=== PATIENT | male | born 1955 | race Caucasian/White ===

== ENCOUNTER 2020-03-06 17:26 | Emergency (ER) | payer MEDICARE, BC, SELFPAY ==
--- NOTE | 2020-03-06 17:45 | XR_ITS ---
WS: [id number] LEFT SHOULDER: 3 VIEW(S) TECHNIQUE: Internal and external rotation with Y view. HISTORY: injury COMPARISON: None available. No fracture or dislocation or soft tissue abnormality. Slight buckling along the inferior surface of the glenoid. I believe was present on prior studies. Mild subchondral cystic changes over the humeral head. Mild AC joint narrowing. XR/XR shoulder LT min 2V* [id number] IMPRESSION: No LEFT shoulder fracture identified.
[2020-03-06 18:00] VITALS: BP 144/93; PULSE 67; RESP 15; TEMP 36.6; O2SAT 95; BMI 35.2
--- NOTE | 2020-03-06 18:32 | CTR_ITS ---
PROCEDURE INFORMATION: Exam: CT Cervical Spine Without Contrast Exam date and time: 03/06/2020 7:16 PM Age: 64 years old Clinical indication: Injury or trauma; Initial encounter; Blunt trauma; Patient HX: Fall from standing into doorframe - lac to L scalp - L shoulder pain; Additional info: Fall, injury TECHNIQUE: Imaging protocol: Computed tomography images of the cervical spine without contrast. Radiation optimization: All CT scans at this facility use at least one of these dose optimization techniques: automated exposure control; mA and/or kV adjustment per patient size (includes targeted exams where dose is matched to clinical indication); or iterative reconstruction. COMPARISON: No relevant prior studies available. RADIATION DOSE METRICS: Total DLP (mGy-cm): 699.25 FINDINGS: Vertebrae: The vertebral body alignment and stature is normal. The facets are intact with mild degenerative changes. C2-C3: No significant disc protrusion. No severe spinal canal stenosis. No significant neural foraminal narrowing. C3-C4: No significant disc protrusion. No severe spinal canal stenosis. No significant neural foraminal narrowing. C4-C5: No significant disc protrusion. No severe spinal canal stenosis. No significant neural foraminal narrowing. C5-C6: At C5-C6 there is a disc bulge. Mild central canal stenosis and mild left bony foraminal stenosis. C6-C7: At C6-C7 there is a disc bulge. Mild central canal stenosis and mild left foraminal stenosis. C7-T1: No significant disc protrusion. No severe spinal canal stenosis. No significant neural foraminal narrowing. 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 Lungs: Lung apices are normal. CT/CT cervical spin wo con* [id number] IMPRESSION: 1. No fracture or acute finding. 2. Disc bulges at C5-C6 and C6-C7 with mild central canal stenosis. Radiation Dose CTDIVOL = (mGy): DLP = 699.25 (mGy-cm)
--- NOTE | 2020-03-06 18:32 | CTR_ITS ---
PROCEDURE INFORMATION: Exam: CT Head Without Contrast Exam date and time: 03/06/2020 7:16 PM Age: 64 years old Clinical indication: Injury or trauma; Initial encounter; Laceration; Without loss of consciousness; Without residual foreign body; Patient HX: Fall from standing into doorframe - lac to L scalp - L shoulder pain TECHNIQUE: Imaging protocol: Computed tomography of the head without contrast. Radiation optimization: All CT scans at this facility use at least one of these dose optimization techniques: automated exposure control; mA and/or kV adjustment per patient size (includes targeted exams where dose is matched to clinical indication); or iterative reconstruction. COMPARISON: No relevant prior studies available. RADIATION DOSE METRICS: Total DLP (mGy-cm): 947.92 FINDINGS: Brain: The sulci are normal. Mild hypodensities in supratentorial periventricular white matter. No intracranial hemorrhage. Ventricles: Normal. No ventriculomegaly. Bones/joints: Unremarkable. No acute fracture. Sinuses: Visualized sinuses are unremarkable. No fluid levels. Mastoid air cells: Visualized mastoid air cells are well aerated. Orbits: Prior cataract surgery. Soft tissues: Superior left frontoparietal scalp contusion. CT/CT head wo con* [id number] IMPRESSION: 1. No fracture or intracranial hemorrhage. 2. Left frontoparietal scalp contusion. 3. Mild microangiopathy. Radiation Dose CTDIVOL = (mGy): DLP = 947.92 (mGy-cm)
--- NOTE | 2020-03-06 20:20 | W.ED.FALL ---
HPI - Fall General: Chief Complaint: Fall Stated Complaint: Fall-L shoulder injury/hit head Time Seen by Provider: 03/06/20 19:50 Source: patient and family Mode of arrival: ambulatory Limitations: no limitations History of Present Illness: HPI Narrative: Mr. Cheney is a nice 64-year-old male who comes in complaining of head, neck and shoulder pain after a fall at home. Patient slipped and fell hitting his head on the ground. He was dazed but does not believe he had a loss of consciousness. He also has pain in his left shoulder and trapezius area. Patient states he cannot raise his arm without a great deal of pain. He denies any shooting pain down his arm and has no left upper extremity numbness or weakness. Patient denies other injuries or pains from the fall. He is not tried anything at home for this. He denies any other complaints or concerns. Associated symptoms-after fall: Denies abdominal pain, chest pain, confusion, difficulty walking, headache(s), hematuria, lightheadedness, neck pain or vertigo Review of Systems Const: Denies: fever(s), chills, body aches, fatigue, malaise or diaphoresis Eyes: Denies: change in vision, blurry vision, photophobia, eye discomfort, eye discharge or eye redness ENMT: Denies: throat pain, odynophagia, hoarseness, swelling of lips/tongue, ear or mastoid pain, ear discharge, change in hearing or nasal discharge Card: Denies: chest pain, palpitations, irregular heart rhythm, edema, lightheadedness, syncope, pre-syncope, dyspnea on exertion or orthopnea Resp: Denies: dyspnea, productive cough, non-productive cough, wheezing, hemoptysis or chest congestion GI: Denies: abdominal pain, nausea, vomiting, hematemesis, coffee ground emesis, heartburn, diarrhea, constipation, GI cramping, hematochezia or melena : Denies: flank pain, dysuria, urinary frequency, urinary urgency or hematuria Musc: Denies: neck pain, back pain, extremity pain, extremity swelling, joint swelling, joint redness, joint warmth or joint stiffness Skin/Breast: Denies: rash, pruritus, erythema or skin tenderness Neuro: Denies: headache(s), numbness in extremities, weakness in extremities, sensory changes, lack of coordination, difficulty walking, dizziness, vertigo, confusion, Slurred speech present or seizure-like activity Aaron/Lymph: Denies: easy bruising, easy bleeding, petechiae, purpura or enlarged lymph nodes All/Imm: Denies: urticaria, throat swelling, tongue swelling, facial swelling or acute wheezing PFSH ED PFSH: Medical History Anxiety DM type 2 (diabetes mellitus, type 2) Social History Smoking and tobacco status: former smoker Alcohol intake: never Substance/Drug Use: never Physical Exam Const: COMMON NORMALS: no acute distress, patient oriented x3, no limitations, healthy appearing and well nourished GENERAL APPEARANCE: cooperative, well kempt and well developed HENMT: COMMON NORMALS: normocephalic, external ears normal, EAC's normal and Normal external nose present HEAD & SCALP: normal to inspection, normocephalic and other (Linear contusion noted to left forehead. No active bleeding or laceration.) FACE & SINUS: normal facial exam and face symmetric NOSE: Normal external nose present and Normal nares present EXTERNAL EAR: Yes external ears normal EXTERNAL AUDITORY CANAL: EAC's normal MOUTH: Normal oral and palatal mucosa present, lip normal and tongue normal Eye: COMMON NORMALS: Equal, round and reactive pupils present and conjunctivae normal GENERAL EYE: appearance normal, both eyes and all related structures ALIGNMENT: Yes alignment normal PERIORBITAL: periorbital findings normal EYELID: eyelids normal CONJUNCTIVA: Yes conjunctivae normal SCLERA: sclerae normal PUPIL: Yes Equal, round and reactive pupils present Neck/C-Spine: COMMON NORMALS: full ROM, no lymphadenopathy, supple, no meningeal signs and no JVD GENERAL: Yes normal visual inspection and Yes trachea midline Chest: COMMONS NORMALS: normal inspection of the chest and normal palpation of entire chest wall Resp: COMMON NORMALS: normal respiratory effort, No retractions, No use of accessory muscles and clear to auscultation bilaterally EFFORT & INSPECTION: Yes able to speak in complete sentences and Yes symmetric chest movement AUSCULTATION: clear to auscultation bilaterally, no crackles, no rales, no rhonchi and no wheezes Cardio: COMMON NORMALS: no JVD, regular rate, regular rhythm, S1 normal heart sound present and S2 normal heart sound present RATE: regular rate RHYTHM: regular rhythm HEART SOUNDS: S1 normal heart sound present, S2 normal heart sound present, no click, no gallops, no murmurs, no rubs and abnormal split S2 GI: COMMON NORMALS: Soft to palpation and No hepatosplenomegaly present PALPATION: Yes Soft to palpation, No Tenderness to palpation present (GI), No Guarding due to palpation present (GI), No Rigid due to palpation, Yes No hepatosplenomegaly present, No Hernia present, No Palpable mass present and No Pulsatile mass present : COMMON NORMALS: Yes no CVA tenderness BLADDER/KIDNEY EXAM: Yes no CVA tenderness Back/Pelvis: COMMON NORMALS: no CVA tenderness, thoracic and lumbar spine normal to inspection, no thoracic nor lumbar tenderness and thoraco-lumbar ROM normal Extremity: COMMON NORMALS: capillary refill normal, no joint enlargement, no clubbing, cyanosis or edema and no calf tenderness NARRATIVE EXTREMITY EXAM: Left shoulder with tenderness to palpation. No gross deformity noted. Neurovascular intact distal. Range of motion limited secondary to pain. Neuro: COMMON NORMALS: patient oriented x3, CN's II-XII intact bilaterally, moves all extremities, no focal motor deficits and no sensory deficits noted MENINGEAL SIGNS: Yes no meningeal signs SPEECH: speech normal Psych: COMMON NORMALS: mental status grossly normal, Normal thought process present, cooperative, normal affect, speech normal and activity/motor behavior normal APPEARANCE: Yes well kempt SPEECH: Yes normal speech THOUGHT PROCESS: Normal thought process present Skin: COMMON NORMALS: no rashes or lesions noted, turgor normal, no jaundice, no petechiae and no mottling GENERAL SKIN EXAM: no rashes or lesions noted and turgor normal Course Vital Signs: Vital signs: Vital Signs Temperature 97.9 F 03/06/20 18:00 Pulse Rate 67 03/06/20 18:00 Respiratory Rate 15 03/06/20 18:00 Blood Pressure 144/93 03/06/20 18:00 Pulse Oximetry 95 03/06/20 18:00 MDM - Fall MDM Narrative: Medical decision making narrative: Mr. Cheney is a nice 64-year-old male comes in complaining of pain in his head neck but primarily left shoulder after falling at home. X-rays are unremarkable. CT scan is unremarkable. Patient has limited range of motion secondary to pain from his left shoulder. Think is very likely he has a rotator cuff injury. He will follow-up with his doctor or orthopedic surgeon. He will go home with a sling. Given medications for pain. He agrees to return should his symptoms change or worsen. Imaging Data^: Left Shoulder: Attestation: I personally reviewed and interpreted this imaging study as follows: My impression: No acute fractures or dislocations CT Head: Radiologist's impression: [address] [address] [address] Scan Report Signed Patient: Juan Pablo Cheney Unit #: [id number] : 1955 Age/Sex: 64 / M ADM Date: 03/06/20 Loc: ER Room/Bed: Attending Dr: Ordering Provider/Ordering MD: Brian Mcadams NP Date of Service: 03/06/20 Procedure(s): CT head wo con* [id number] Accession Number(s): [id number] Report Number: [id number] PROCEDURE INFORMATION: Exam: CT Head Without Contrast Exam date and time: 03/06/2020 7:16 PM Age: 64 years old Clinical indication: Injury or trauma; Initial encounter; Laceration; Without loss of consciousness; Without residual foreign body; Patient HX: Fall from standing into doorframe - lac to L scalp - L shoulder pain TECHNIQUE: Imaging protocol: Computed tomography of the head without contrast. Radiation optimization: All CT scans at this facility use at least one of these dose optimization techniques: automated exposure control; mA and/or kV adjustment per patient size (includes targeted exams where dose is matched to clinical indication); or iterative reconstruction. COMPARISON: No relevant prior studies available. RADIATION DOSE METRICS: Total DLP (mGy-cm): 947.92 FINDINGS: Brain: The sulci are normal. Mild hypodensities in supratentorial periventricular white matter. No intracranial hemorrhage. Ventricles: Normal. No ventriculomegaly. Bones/joints: Unremarkable. No acute fracture. Sinuses: Visualized sinuses are unremarkable. No fluid levels. Mastoid air cells: Visualized mastoid air cells are well aerated. Orbits: Prior cataract surgery. Soft tissues: Superior left frontoparietal scalp contusion. CT/CT head wo con* [id number] IMPRESSION: 1. No fracture or intracranial hemorrhage. 2. Left frontoparietal scalp contusion. 3. Mild microangiopathy. Radiation Dose CTDIVOL = (mGy): DLP = 947.92 (mGy-cm) Dictated By: Butch Holloway Signed By: Butch Holloway Signed Date/Time: 03/06/202001 DD/ 00 CT Cervical Spine: Radiologist's impression: [address] [place] [address] CT Scan Report Signed Patient: Juan Pablo Cheney Unit #: [id number] : 1955 Age/Sex: 64 / M ADM Date: 03/06/20 Loc: ER Room/Bed: Attending Dr: Ordering Provider/Ordering MD: Brian Mcadams NP Date of Service: 03/06/20 Procedure(s): CT cervical spin wo con* [id number] Accession Number(s): [id number] Report Number: [id number] PROCEDURE INFORMATION: Exam: CT Cervical Spine Without Contrast Exam date and time: 03/06/2020 7:16 PM Age: 64 years old Clinical indication: Injury or trauma; Initial encounter; Blunt trauma; Patient HX: Fall from standing into doorframe - lac to L scalp - L shoulder pain; Additional info: Fall, injury TECHNIQUE: Imaging protocol: Computed tomography images of the cervical spine without contrast. Radiation optimization: All CT scans at this facility use at least one of these dose optimization techniques: automated exposure control; mA and/or kV adjustment per patient size (includes targeted exams where dose is matched to clinical indication); or iterative reconstruction. COMPARISON: No relevant prior studies available. RADIATION DOSE METRICS: Total DLP (mGy-cm): 699.25 FINDINGS: Vertebrae: The vertebral body alignment and stature is normal. The facets are intact with mild degenerative changes. C2-C3: No significant disc protrusion. No severe spinal canal stenosis. No significant neural foraminal narrowing. C3-C4: No significant disc protrusion. No severe spinal canal stenosis. No significant neural foraminal narrowing. C4-C5: No significant disc protrusion. No severe spinal canal stenosis. No significant neural foraminal narrowing. C5-C6: At C5-C6 there is a disc bulge. Mild central canal stenosis and mild left bony foraminal stenosis. C6-C7: At C6-C7 there is a disc bulge. Mild central canal stenosis and mild left foraminal stenosis. C7-T1: No significant disc protrusion. No severe spinal canal stenosis. No significant neural foraminal narrowing. 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 Lungs: Lung apices are normal. CT/CT cervical spin wo con* [id number] IMPRESSION: 1. No fracture or acute finding. 2. Disc bulges at C5-C6 and C6-C7 with mild central canal stenosis. Radiation Dose CTDIVOL = (mGy): DLP = 699.25 (mGy-cm) Dictated By: Butch Holloway Signed By: Butch Holloway Signed Date/Time: 03/06/202008 DD/ 07 Discharge Plan Discharge Patient Disposition: Home Clinical Impression: Left shoulder strain Qualifiers: Encounter type: initial encounter Qualified Code(s): S46.912A - Strain of unspecified muscle, fascia and tendon at shoulder and upper arm level, left arm, initial encounter Concussion without loss of consciousness Qualifiers: Encounter type: initial encounter Qualified Code(s): S06.0X0A - Concussion without loss of consciousness, initial encounter Condition: Stable Prescriptions: [place] 5-325 mg tablet 1 tab PO Q6H PRN (Reason: pain) 5 Days Qty: 12 RF: 0 Zofran 4 mg tablet 4 mg PO Q6H PRN (Reason: nausea and vomiting) Qty: 20 RF: 0 No Action alprazolam [Xanax] 0.5 mg tablet 1 mg PO BID RF: 0 bupropion HCl [Wellbutrin XL] 150 mg tablet extended release 24 hr 150 mg PO BID RF: 0 trazodone 50 mg tablet 100 mg PO ONCE RF: 0 methocarbamol 750 mg tablet 750 mg PO BID RF: 0 ibuprofen 800 mg tablet 800 mg PO BID RF: 0 glipizide 10 mg tablet 10 mg PO BID RF: 0 Discharge Orders: Discharge Order (Routine); Ordered 03/06/20 Ordered By: Phuong Basurto Referrals: David Coleman MD [Physician] - 1-3 days Wilton Jarvis Jr, MD [Primary Care Provider] - 1-3 days Discharge Diet: Usual diet Discharge Activity: Increase activity as tolerated Patient Instructions: Rotator Cuff Injury (ED), Concussion (ED) Activity Restrictions/Additional Instructions: Please return to the ER immediately for any of the signs or symptoms listed on your discharge instruction sheets, worsening/changing of your symptoms, you are not getting better as quickly as expected, or for ANY other cause or concerns. Use your sling as needed but be certain to follow-up with Dr. Coleman or the orthopedic doctor of your choice for recheck. Follow your concussion instruction guide and be certain to follow-up with your doctor for reevaluation for your concussion. Return to the ER for increased pain, numbness, weakness, or for any other cause for concern. Coding Level of Care Code ED Medical Accountant for Mildred Miles
[2020-03-06] MEDS: ondansetron 4 MG Tablet PO (20:39)
[2020-03-06] MEDS: HYDROcodone-acetaminophen 5-325 mg Tablet 1 TAB PO (20:39)
[2020-03-06 20:41] VITALS: PULSE 74; RESP 16; O2SAT 96
--- NOTE | 2020-03-10 15:24 | DCPLANNER ---
advertising manager had message to schedule a follow up appointment for patient with ortho. advertising manager called the ortho clinic, spoke with Maura, gave clinic patients information. advertising manager was told that patients information would be printed and reviewed. Clinic will call patient with appointment information.
--- NOTE | 2020-03-17 09:57 | DCPLANNER ---
it disaster recovery manager called patient to confirm if appointment had been scheduled for patient. it disaster recovery manager spoke with Pat, was told that patient followed up with primary care physician.
== END 2020-03-06 20:51 | disposition home or self-care (01) ==
PROVIDERS: Emergency Provider Emergency Medicine; PCP Family Medicine
DX: S46.912A Strain of unspecified muscle, fascia and tendon at shoulder and upper arm level, left arm, initial encounter (principal); S06.0X0A Concussion without loss of consciousness, initial encounter; W01.0XXA Fall on same level from slipping, tripping and stumbling without subsequent striking against object, initial encounter; E11.9 Type 2 diabetes mellitus without complications; Z87.891 Personal history of nicotine dependence
CPT/HCPCS: 12345; 70450; 72125; 73030; 99281; 99283; Q0162

== ENCOUNTER 2020-04-22 10:40 | Outpatient (CLI) | payer MEDICARE, BC, SELFPAY ==
--- NOTE | 2020-04-22 10:46 | MR_ITS ---
WS: [id number] MRI LEFT SHOULDER HISTORY: SHOULDER PAIN COMPARISON: 03/06/2020 TECHNIQUE: Multiplanar sequences of the shoulder joint are submitted. Severe degenerative changes at the AC joint. Loss of the normal cortex of the distal clavicle and acr omion. Osteophytic ridging and soft tissue with encroachment upon the supraspinatus muscle and tendon . Additional 3 mm osteophyte from the distal undersurface of the acromion. Humeral head is high ridin g nearly abutting the undersurface of the acromion. Acromiohumeral distance is 2.6 mm. No os acromion . Biceps tendon remains normally positioned at the bicipital groove. There is increase fluid in the b iceps tendon sheath. Loss of cartilage involving a large portion of the humeral head with cortical irregularity and subcho ndral cystic changes and osteophytes. Humeral head is elevated superiorly from the glenoid. There is complete loss of cartilage over the glenoid abnormal signal in the anterior superior labrum consisten t with complex tear. Complete tear with retraction involving the supraspinatus tendon. Tendon is retracted to the medial h umeral head. There is increase fluid extending along the residual tendon by 2 cm. Moderate atrophy of the supraspinatus muscle. Subscapularis recess fluid. Marked tendinopathy and abnormal signal in the distal subscapularis tendon. Suspicious for high-grade tear distally. No atrophy of the subscapulari s muscle. Infraspinatus tendon is also torn and retracted to the medial humeral head. Distal 3 cm of the visualized tendon is frayed. Very mild atrophy of the infraspinatus muscle. Teres minor tendon is negative. There is a small joint effusion surrounding the humeral head. There are small loose bodies within the fluid. MR/MR shoulder LT wo con* [id number] IMPRESSION: 1. Torn retracted supraspinatus and infraspinatus tendons to the medial stephany l head. Residual tendon stumps are frayed and irregular. 2. High-grade tear distal subscapularis tendon with tendinopathy. 3. Moderate atrophy supraspinatus muscle and mild atrophy infraspinatus muscle . 4. Severe AC joint hypertrophy. 5. High riding humeral head with advanced degenerative changes around the jesse ral head and loss of cartilage. 6. Mild biceps tenosynovitis. 7. Anterior superior labral tear. 8. Small joint effusion with tiny loose bodies.
== END 2020-04-22 10:41 | disposition home or self-care (01) ==
LOC: RADSHAW 10:45
PROVIDERS: PCP Family Medicine; Visit Provider Family Medicine
DX: M25.412 Effusion, left shoulder (principal); S43.432A Superior glenoid labrum lesion of left shoulder, initial encounter; M65.88 Other synovitis and tenosynovitis, other site; M75.102 Unspecified rotator cuff tear or rupture of left shoulder, not specified as traumatic; X58.XXXA Exposure to other specified factors, initial encounter
CPT/HCPCS: 73221

== ENCOUNTER 2022-02-26 00:03 | Emergency (ER) | payer MEDICARE, SELFPAY ==
[2022-02-26 00:07] VITALS: BP 177/86; PULSE 61; RESP 20; TEMP 36.3; O2SAT 95; BMI 34.7
--- NOTE | 2022-02-26 01:14 | CTR_ITS ---
PROCEDURE INFORMATION: Exam: CT Head Without Contrast Exam date and time: 02/26/2022 1:35 AM Age: 66 years old Clinical indication: Pain; Vascular; Patient HX: C/O severe diffuse headache with hypertension. History of prostate cancer with lymphatic mets. ; Additional info: Severe headaches TECHNIQUE: Imaging protocol: Computed tomography of the head without contrast. Radiation optimization: All CT scans at this facility use at least one of these dose optimization techniques: automated exposure control; mA and/or kV adjustment per patient size (includes targeted exams where dose is matched to clinical indication); or iterative reconstruction. COMPARISON: CT head wo con* [id number] 03/06/2020 7:17 PM RADIATION DOSE METRICS: Total DLP (mGy-cm): 1131.68 FINDINGS: Brain: Normal. No hemorrhage. Unremarkable white matter. No mass effect. Cerebral ventricles: No ventriculomegaly. Paranasal sinuses: Visualized sinuses are unremarkable. No fluid levels. Mastoid air cells: Visualized mastoid air cells are well aerated. Bones/joints: Unremarkable. No acute fracture. Soft tissues: Unremarkable. CT/CT head wo con* [id number] IMPRESSION: No acute intracranial abnormality. Stable head CT compared with 03/06/2020.
--- NOTE | 2022-02-26 01:15 | ED_ITS ---
HPI - Headache General: Chief Complaint: Headache Stated Complaint: Headache Time Seen by Provider: 02/26/22 00:59 History of Present Illness: Patient is a 66-year-old male comes to the ED with a headache. Patient has a past medical history of prostate cancer and just started taking Zytiga for the last 2 weeks. 1 side effect of the Zytiga his increased blood pressure and he has had elevated blood pressures here for the past 2 weeks and has PCP put him on lisinopril 2 days ago. For the past 3 days he has had constant headache that starts in his neck and then radiates up throug hout his head. He rates it currently an 8 out of 10. He states that he never has headaches of this is unusual for him. He has had some elevated blood pressures at home and says tonight he had a systolic blood pressure reading over 190. Denies any other symptoms with the headache. Denies any neuro symptoms such as vision changes, numbness tingling or weakness to face or extremities. Denies any fevers, chest pain, shortness of breath, photophobia, nausea/vomiting. Associated symptoms: Deny chest pain, fever(s), nausea, rash or vomiting Review of Systems Const: Denies: fever(s), chills or fatigue Eyes: Denies: change in vision or eye discomfort ENMT: Denies: throat pain, odynophagia, nasal discharge or nasal congestion Card: Denies: chest pain, palpitations, edema, swelling of feet/ankles, dyspnea on exertion or orthopnea Resp: Denies: dyspnea, productive cough or non-productive cough GI: Denies: abdominal pain, nausea, vomiting, diarrhea, constipation or hematochezia : Denies: flank pain, difficulty urinating, dysuria or hematuria Musc: Denies: neck pain, back pain or extremity swelling Skin/Breast: Denies: rash or new lesions Neuro: Reports: headache(s); Denies: numbness in extremities or weakness in extremities PFS ED PFSH: Medical History Anxiety DM type 2 (diabetes mellitus, type 2) Social History Alcohol intake: never Physical Exam Const: COMMON NORMALS: no acute distress, patient oriented x3 and alert HENMT: COMMON NORMALS: normocephalic HEAD & SCALP: normocephalic MOUTH: Normal oral and palatal mucosa present THROAT: posterior oropharynx normal and uvula midline Eye: COMMON NORMALS: Equal, round and reactive pupils present and EOMs intact bilaterally GENERAL EYE: appearance normal, both eyes and all related structures PUPIL: Yes Equal, round and reactive pupils present Neck/C-Spine: COMMON NORMALS: supple GENERAL: Yes normal visual inspection Lymph: LYMPHATIC: no lymphadenopathy noted Resp: COMMON NORMALS: normal respiratory effort, No retractions, No use of a ccessory muscles and clear to auscultation bilaterally AUSCULTATION: clear to auscultation bilaterally Cardio: COMMON NORMALS: regular rate, regular rhythm, S1 normal heart sound present, S2 normal heart sound present, No gallops present (Cardio), No clicks present (Cardio), No murmurs present (Cardio) and Peripheral pulses 2+ throughout RATE: regular rate RHYTHM: regular rhythm HEART SOUNDS: S1 normal heart sound present and S2 normal heart sound present PERIPHERAL PULSES: Peripheral pulses 2+ throughout GI: COMMON NORMALS: Normal to inspection, nondistended, normoactive bowel sounds present, Soft to palpation, non-tender and no masses PALPATION: Yes Soft to palpation : COMMON NORMALS: Yes no CVA tenderness BLADDER/KIDNEY EXAM: Yes no CVA tenderness Back/Pelvis: COMMON NORMALS: no CVA tenderness Extremity: GENERAL: Yes normal exam except as noted Neuro: COMMON NORMALS: patient oriented x3, CN's II-XII intact bilaterally, moves all extremities, no focal motor deficits and no sensory deficits noted SENSORIUM/ORIENTATION: Yes alert COORDINATION/BALANCE: [id number] test normal SPEECH: speech normal SENSORY EXAM: Yes extremities (intact) MOTOR EXAM: 5/5 motor strength present throughout COORDINATION: fin jeremiah-to-nose test normal Skin: COMMON NORMALS: no rashes or lesions noted GENERAL SKIN EXAM: no rashes or lesions noted and dry skin Course Vital Signs: Vital signs: Vital Signs Temperature 97.4 F L 02/26/22 00:07 Pulse Rate 61 02/26/22 00:07 Respiratory Rate 20 H 02/26/22 00:07 Blood Pressure 177/86 02/26/22 00:07 Pulse Oximetry 95 02/26/22 00:07 Oxygen Delivery Me thod 02/26/22 00:07 MDM - Headache Medical Decision Making Patient is a 66-year-old male comes to the ED with a headache. Patient has a past medical history of prostate cancer and just started taking Zytiga for the last 2 weeks. 1 side effect of the Zytiga his increased blood pressure and he has had elevated blood pressures here for the past 2 weeks and has PCP put him on lisinopril 2 days ago. For the past 3 days he has had constant headache that starts in his neck and then radiates up throughout his head. He rates it currently an 8 out of 10. He states that he never has headaches of this is unusual for him. Vitals are stable here in the ED. Exam shows a patient in no acute distress or pain. Neuro exam shows no deficits. Rest of exam is benign. CBC and BMP were unremarkable. Head CT showed no acute findings. Patient was given IV Toradol and Benadryl and his headache resolved. Patient was diagnosed with headache and was discharged home. He was told to follow-up with his PCP in the next week for reevaluation. Return to ED precautions given. Patient understood and agreed with plan. Lab Data I reviewed the patient's lab results. : 02/26/22 01:30 02/26/22 01:[address] 02/26/22 01:14 IMPRESSION: No acute intracranial abnormality. Stable head CT compared with 03/06/2020. Laboratory Results WBC 6.5 10^3/uL (4.0-10.0) 02/26/22 01:30 RBC 4.60 10^6/uL (4.1-5.3) 02/26/22 01:30 Hgb 13.9 g/dL (11.7-16.6) 02/26/22 01:30 Hct 41.2 % (42.0-52.0) L 02/26/22 01:30 MCV 89.6 fl (80-94) 02/26/22 01:30 MCH 30.2 pg (28.0-34.0) 02/26/22 01:30 MCHC 33.7 g/dL (30.0-36.0) 02/26/22 01:30 RDW 11.9 % (12.1-15.1) L 02/26/22 01:30 Plt Count 121 10^3/cmm (130-400) L 02/26/22 01:30 MPV 10.4 fL (7.4-10.4) 02/26/22 01:30 Neut % (Auto) 57.1 % 02/26/22 01:30 Lymph % (Auto) 32.1 % 02/26/22 01:30 [place] % (Auto) 5.8 % 02/26/22 01:30 Eos % (Auto) 3.4 % 02/26/22 01:30 Baso % (Auto) 1.1 % 02/26/22 01:30 Neut # (Auto) 3.72 10^3/uL (1.8-7.7) 02/26/22 01:30 Lymph # (Auto) 2.1 10^3/uL (0.8-4.8) 02/26/22 01:30 [place] # (Auto) 0.4 10^3/uL (0.2-0.9) 02/26/22 01:30 Eos # (Auto) 0.2 10^3/uL (0.0-0.8) 02/26/22 01:30 Baso # (Auto) 0.1 10^3/uL (0.0-0.1) 02/26/22 01:30 Nucleated RBC % (auto) 0 % 02/26/22 01:30 Nucleated RBCs # 0.0 /100WBC 02/26/22 01:30 Sodium 137 mmol/L (136-145) 02/26/22 01:30 Potassium 3.9 mmol/L (3.5-5.1) 02/26/22 01:30 Chloride 102 mmol/L (98-107) 02/26/22 01:30 Carbon Dioxide 26 mmol/L (22-29) 02/26/22 01:30 Anion Gap 12.9 (5-19) 02/26/22 01:30 BUN 19 mg/dL (8-23) 02/26/22 01:30 Creatinine 0.7 mg/dL (0.7-1.2) 02/26/22 01:30 GFR Calculation 112.5 mL/min (90-130) 02/26/22 01:30 Glucose 237 mg/dL (65-115) H 02/26/22 01:30 Calculated Osmolality 294 mOsm/kg (285-295) 02/26/22 01:30 Calcium 9.2 mg/dL (8.5-10.5) 02/26/22 01:30 Discharge Plan Discharge Patient Disposition: Home Clinical Impression: Headache Qualifiers: Headache type: unspecified Headache chronicity pattern: acute headache Intractability: not intractable Qualified Code(s): R51.9 - Headache, unspecified Condition: Stable Prescriptions: No Action alprazolam [Xanax] 0.5 mg tablet 1 mg PO BID bupropion HCl [Wellbutrin XL] 150 mg tablet extended release 24 hr 150 mg PO BID trazodone 50 mg tablet 100 mg PO ONCE methocarbamol 750 mg tablet 750 mg PO BID ibuprofen 800 mg tablet 800 mg PO BID glipizide 10 mg tablet 10 mg PO BID cephalexin 500 mg capsule 500 mg PO BID 7 Days Qty: 14 0RF silver sulfadiazine 1 % cream 1 applic topical BID 14 Days Qty: 50 1RF Rx Instructions: apply a 1.5 mm thickness Zofran 4 mg tablet 4 mg PO Q6H PRN (Reason: nausea and vomiting) Qty: 20 0RF Discharge Orders: Discharge ED (Routine); Ordered 02/26/22 Ordered By: Dayron Hathaway Referrals: Wilton Jarvis Jr, MD [Primary Care Provider] - Discharge Diet: Regular Discharge Activity: Resume usual activity Patient Instructions: Acute Headache (DC) Activity Restrictions/Additional Instructions: Follow-up with medical provider as directed in the next 5 to 7 days for reevaluation. Continue taking all medications as previously prescribed. Return to the ER or your medical provider if condition worsens. Please read and understand discharge instructions. Thank you for choosing [facility] for your healthcare needs today. Please realize this is an emergency room and that we are providing you with a medical screening exam and this may not be complete and all inclusive of all the testing and or work up that you may need to determine your ailment or severity of your illness. It is very important that you follow up as instructed or that you return to the Emergency Department should you have concerns or if your condition changes or worsens in any way. Coding Level of Care Code ED Power Distributor for Mildred Fwjosé Exam Comprehensive
[2022-02-26 01:46] LABS: Basophils # 0.1 10^3/uL (0.0-0.1); Basophils % 1.1 %; Eosinophils # 0.2 10^3/uL (0.0-0.8); Eosinophils % 3.4 %; Hematocrit 41.2 % (42.0-52.0); Hemoglobin 13.9 g/dL (11.7-16.6); Lymphocytes # 2.1 10^3/uL (0.8-4.8); Lymphocytes % 32.1 %; Mean Corpuscular HGB Conc 33.7 g/dL (30.0-36.0); Mean Corpuscular Hemoglobin 30.2 pg (28.0-34.0); Mean Corpuscular Volume 89.6 fl (80-94); Mean Platelet Volume 10.4 fL (7.4-10.4); Monocytes # 0.4 10^3/uL (0.2-0.9); Monocytes % 5.8 %; Neutrophils # 3.72 10^3/uL (1.8-7.7); Neutrophils % 57.1 %; Nucleated Red Blood Cells % 0 %; Platelet Count 121 10^3/cmm (130-400); Red Cell Distribution Width 11.9 % (12.1-15.1); White Blood Count 6.5 10^3/uL (4.0-10.0)
[2022-02-26 02:06] LABS: Blood Urea Nitrogen 19 mg/dL (8-23); Calcium 9.2 mg/dL (8.5-10.5); Carbon Dioxide 26 mmol/L (22-29); Chloride 102 mmol/L (98-107); Glomerular Filtration Rate 112.5 mL/min (90-130); Glucose 237 mg/dL (65-115); Osmolality Calculated 294 mOsm/kg (285-295); Sodium 137 mmol/L (136-145)
[2022-02-26 02:08] LABS: Anion Gap 12.9 (5-19); Potassium 3.9 mmol/L (3.5-5.1)
[2022-02-26] MEDS: ketorolac 30 mg/mL INJ IVP (02:16)
[2022-02-26] MEDS: diphenhydrAMINE 50 mg/mL SDV 1mL 25 MG IVP (02:16)
== END 2022-02-26 03:00 | disposition home or self-care (01) ==
PROVIDERS: Emergency Provider Physician Assistant; PCP Family Medicine
DX: R51.9 Headache, unspecified (principal); E11.9 Type 2 diabetes mellitus without complications
CPT/HCPCS: 70450; 80048; 85025; 96374; 96375; 99284; J1200; J1885

== ENCOUNTER 2022-05-13 21:31 | Emergency (ER) | payer MEDICARE, SELFPAY ==
[2022-05-13 21:37] VITALS: BP 209/106; PULSE 80; RESP 20; TEMP 36.2; O2SAT 94; BMI 34.2
--- NOTE | 2022-05-13 21:44 | CTR_ITS ---
PROCEDURE INFORMATION: Exam: CT Abdomen And Pelvis Without Contrast Exam date and time: 05/13/2022 10:14 PM Age: 66 years old Clinical indication: Abdominal pain; Flank; Left; Additional info: Flank pain TECHNIQUE: Imaging protocol: Computed tomography of the abdomen and pelvis without contrast. Radiation optimization: All CT scans at this facility use at least one of these dose optimization techniques: automated exposure control; mA and/or kV adjustment per patient size (includes targeted exams where dose is matched to clinical indication); or iterative reconstruction. COMPARISON: US abdomen complete* [id number] 04/16/2019 7:36 AM RADIATION DOSE METRICS: Total DLP (mGy-cm): 1142.14 FINDINGS: Heart: Coronary artery atherosclerotic calcifications. Liver: Normal. No mass. Gallbladder and bile ducts: Normal. No calcified stones. No ductal dilation. Pancreas: Normal. No ductal dilation. Spleen: Spleen enlarged at 13.7 cm. Adrenal glands: Normal. No mass. Kidneys and ureters: Left ureterovesical junction 5.1 mm calculus with mild hydronephrosis and hydroureter along with perinephric edema perhaps reflecting associated pyelonephritis. Right kidney cyst, negative for follow-up advised. Stomach and bowel: Unremarkable. No obstruction. No mucosal thickening. Appendix: No evidence of appendicitis. Intraperitoneal space: Unremarkable. No free air. No significant fluid collection. Vasculature: Unremarkable. No abdominal aortic aneurysm. Lymph nodes: Unremarkable. No enlarged lymph nodes. Urinary bladder: Unremarkable as visualized. Reproductive: Unremarkable as visualized. Bones/joints: Unremarkable. No acute fracture. Soft tissues: Small umbilical hernia containing omentum without bowel. Small left inguinal hernia containing omentum without bowel. CT/CT kidney stone [id number] IMPRESSION: 1. Left ureterovesical junction 5.1 mm calculus with mild hydronephrosis and hydroureter along with perinephric edema perhaps reflecting associated pyelonephritis. 2. Right kidney cyst, negative for follow-up advised. 3. Small umbilical hernia containing omentum without bowel. 4. Small left inguinal hernia containing omentum without bowel. 5. Coronary artery atherosclerotic calcifications. 6. Spleen enlarged at 13.7 cm. COMMENTS: Consistent with the [employer]'s Incidental Findings Committee white paper ([employer] Radiol 2018): Any incidental renal lesion less than 1 cm or classified as too small to characterize, or any incidental cystic renal lesion characterized as simple-appearing, is likely benign. No follow-up imaging is recommended for these lesions per consensus recommendations based on imaging criteria.
--- NOTE | 2022-05-13 21:46 | W.ED.MALEGU ---
HPI - Male Genitourinary General: Chief complaint: Urogenital-Male Stated complaint: Possible Kidney Stone Time Seen by Provider: 05/13/22 21:44 History of Present Illness: 66-year-old male patient comes in today for complaints of flank pain on the left side, difficulty urinating, and testicular pain. Patient reports symptoms started about 1 day ago which he felt was probably due to a kidney stone. This evening patient had an episode of emesis and worsening pain which brought him to the ER. Patient does have a history of diabetes mellitus type 2, prostate cancer stage IV, and hypertension. Associated symptoms: Reports nausea and vomiting Review of Systems Const: Denies: fever(s) GI: Reports: nausea and vomiting : Reports: flank pain, difficulty urinating and testicular pain PFSH ED PFSH: Medical History (Updated 05/13/22 @ 23:49 by LIU Nicole) Anxiety DM type 2 (diabetes mellitus, type 2) Social History Alcohol intake: never Physical Exam Const: COMMON NORMALS: alert HENMT: COMMON NORMALS: normocephalic HEAD & SCALP: normocephalic Neck/C-Spine: COMMON NORMALS: full ROM Resp: COMMON NORMALS: normal respiratory effort and clear to auscultation bilaterally AUSCULTATION: clear to auscultation bilaterally Cardio: COMMON NORMALS: regular rate and regular rhythm RATE: regular rate RHYTHM: regular rhythm GI: COMMON NORMALS: Soft to palpation (Mildly distended) AUSCULTATION: Yes normoactive bowel sounds PALPATION: Yes Soft to palpation (Mildly distended) and Yes Tenderness to palpation present (GI) : BLADDER/KIDNEY EXAM: Yes CVA tenderness on the left Back/Pelvis: GENERAL BACK: Yes CVA tenderness Extremity: COMMON NORMALS: normal to inspection Neuro: SENSORIUM/ORIENTATION: Yes alert Skin: COMMON NORMALS: turgor normal GENERAL SKIN EXAM: turgor normal Course Vital Signs: Vital signs: Vital Signs Temperature 97.2 F L 05/13/22 21:37 Pulse Rate 80 05/13/22 21:37 Respiratory Rate 16 05/13/22 22:05 Blood Pressure 219/104 05/14/22 00:00 Pulse Oximetry 93 05/14/22 00:00 Oxygen Delivery Me thod 05/13/22 21:37 MDM - Male Medical Decision Making 66-year-old male patient comes in today for complaints of left flank pain radiating into the groin. On exam patient does have some CVA tenderness on the left flank area. Abdomen soft with some tenderness in the left upper abdomen. Bowel sounds are present. Differential diagnosis includes not limited to urinary retention, UTI, renal calculi, prostatitis. CBC had a white count of 9.8, sodium was 130, CT of the abdomen pelvis noted a 5.1 mm calculus in the UVJ. Patient's creatinine was 0.9 with bun of 19. Patient good results with pain medication hydromorphone. Recommend patient follow-up with urology for further treatment and evaluation return to ER for worsening pain or high fever. Lab Data : 05/13/22 22:05 05/13/22 22:05 Radiology Impressions Abdomen/Pelvis CT 05/13/22 21:44 IMPRESSION: 1. Left ureterovesical junction 5.1 mm calculus with mild hydronephrosis and hydroureter along with perinephric edema perhaps reflecting associated pyelonephritis. 2. Right kidney cyst, negative for follow-up advised. 3. Small umbilical hernia containing omentum without bowel. 4. Small left inguinal hernia containing omentum without bowel. 5. Coronary artery atherosclerotic calcifications. 6. Spleen enlarged at 13.7 cm. COMMENTS: Consistent with the [employer]'s Incidental Findings Committee white paper ([employer] Radiol 2018): Any incidental renal lesion less than 1 cm or classified as too small to characterize, or any incidental cystic renal lesion characterized as simple-appearing, is likely benign. No follow-up imaging is recommended for these lesions per consensus recommendations based on imaging criteria. Laboratory Results WBC 9.8 10^3/uL (4.0-10.0) 05/13/22 22:05 RBC 4.87 10^6/uL (4.1-5.3) 05/13/22 22:05 Hgb 14.6 g/dL (11.7-16.6) 05/13/22 22:05 Hct 42.8 % (42.0-52.0) 05/13/22 22:05 MCV 87.9 fl (80-94) 05/13/22 22:05 MCH 30.0 pg (28.0-34.0) 05/13/22 22:05 MCHC 34.1 g/dL (30.0-36.0) 05/13/22 22:05 RDW 12.1 % (12.1-15.1) 05/13/22 22:05 Plt Count 148 10^3/cmm (130-400) 05/13/22 22:05 MPV 10.2 fL (7.4-10.4) 05/13/22 22:05 Neut % (Auto) 78.9 % 05/13/22 22:05 Lymph % (Auto) 12.8 % 05/13/22 22:05 [place] % (Auto) 6.7 % 05/13/22 22:05 Eos % (Auto) 0.7 % 05/13/22 22:05 Baso % (Auto) 0.5 % 05/13/22 22:05 Neut # (Auto) 7.74 10^3/uL (1.8-7.7) H 05/13/22 22:05 Lymph # (Auto) 1.3 10^3/uL (0.8-4.8) 05/13/22 22:05 [place] # (Auto) 0.7 10^3/uL (0.2-0.9) 05/13/22 22:05 Eos # (Auto) 0.1 10^3/uL (0.0-0.8) 05/13/22 22:05 Baso # (Auto) 0.1 10^3/uL (0.0-0.1) 05/13/22 22:05 Nucleated RBC % (auto) 0 % 05/13/22 22:05 Nucleated RBCs # 0.0 /100WBC 05/13/22 22:05 Sodium 130 mmol/L (136-145) L 05/13/22 22:05 Potassium 4.4 mmol/L (3.5-5.1) 05/13/22 22:05 Chloride 94 mmol/L (98-107) L 05/13/22 22:05 Carbon Dioxide 25 mmol/L (22-29) 05/13/22 22:05 Anion Gap 15.4 (5-19) 05/13/22 22:05 BUN 19 mg/dL (8-23) 05/13/22 22:05 Creatinine 0.9 mg/dL (0.7-1.2) 05/13/22 22:05 GFR Calculation 84.2 mL/min (90-130) L 05/13/22 22:05 Glucose 189 mg/dL (65-115) H 05/13/22 22:05 Calculated Osmolality 277 mOsm/kg (285-295) L 05/13/22 22:05 Lactic Acid 2.4 mmol/L (0.5-2.2) H 05/13/22 22:05 Calcium 9.8 mg/dL (8.5-10.5) 05/13/22 22:05 Total Bilirubin 0.9 mg/dL (0.15-1.2) 05/13/22 22:05 AST 69 U/L (0-40) H 05/13/22 22:05 ALT 57 U/L (0-41) H 05/13/22 22:05 Alkaline Phosphatase 78 U/L (40-130) 05/13/22 22:05 Total Protein 7.6 g/dL (6.6-8.7) 05/13/22 22:05 Albumin 4.3 g/dL (3.5-5.2) 05/13/22 22:05 Globulin 3.3 g/dL (1.3-4.6) 05/13/22 22:05 Urine Color Yellow (Yellow) 05/13/22 23:39 Urine Appearance Sl hazy (CLEAR) A 05/13/22 23:39 Urine pH 5 (5-7) 05/13/22 23:39 Ur Specific [place] 1.015 (1.005-1.030) 05/13/22 23:39 Urine Protein Trace (Negative) 05/13/22 23:39 Urine Glucose (UA) Norm (Normal) 05/13/22 23:39 Urine Ketones Negative (Negative) 05/13/22 23:39 Urine Blood 3+ (Negative) H 05/13/22 23:39 Urine Nitrate Negative (Negative) 05/13/22 23:39 Urine Bilirubin Neg (Negative) 05/13/22 23:39 Urine Urobilinogen Norm mg/dL (Negative) 05/13/22 23:39 Ur Leukocyte Esterase Negative (Negative) 05/13/22 23:39 Urine RBC 40-50 /hpf (0-2) H 05/13/22 23:39 Urine WBC 0-4 /hpf (0-5) H 05/13/22 23:39 Ur Squamous Epith Cells None /hpf (0-5) 05/13/22 23:39 Amorphous Sediment Not Reportable 05/13/22 23:39 Urine Bacteria None /hpf (NONE) 05/13/22 23:39 Hyaline Casts 0-4 /lpf H 05/13/22 23:39 Discharge Plan Discharge Patient Disposition: Home Clinical Impression: Left ureteral calculus Condition: Stable Prescriptions: New hydrocodone-acetaminophen 7.5-325 mg tablet 1 tab PO Q6H PRN (Reason: pain) Qty: 14 0RF ondansetron 4 mg tablet,disintegrating 4 mg PO Q8H PRN (Reason: nausea and vomiting) Qty: 10 0RF No Action alprazolam [Xanax] 0.5 mg tablet 1 mg PO BID bupropion HCl [Wellbutrin XL] 150 mg tablet extended release 24 hr 150 mg PO BID trazodone 50 mg tablet 100 mg PO ONCE methocarbamol 750 mg tablet 750 mg PO BID ibuprofen 800 mg tablet 800 mg PO BID glipizide 10 mg tablet 10 mg PO BID cephalexin 500 mg capsule 500 mg PO BID 7 Days Qty: 14 0RF silver sulfadiazine 1 % cream 1 applic topical BID 14 Days Qty: 50 1RF Rx Instructions: apply a 1.5 mm thickness Zofran 4 mg tablet 4 mg PO Q6H PRN (Reason: nausea and vomiting) Qty: 20 0RF Discharge Orders: Discharge ED (Routine); Ordered 05/14/22 Ordered By: Brian Mcadams Referrals: Wilton Jarvis Jr, MD [Primary Care Provider] - Discharge Diet: Usual diet Discharge Activity: Increase activity as tolerated Patient Instructions: Kidney Stones (ED), Opioid Safety Activity Restrictions/Additional Instructions: Follow-up with urologist on Sunday for appointment. Continue with routine medications. Use hydrocodone for pain and ondansetron for nausea and vomiting. Return to emergency department for worsening symptoms such as high fever, inability to hold fluids down, or new concerns. Coding Level of Care Code ED Streetcar Repairer for Chg Fwd Exam Comprehensive
[2022-05-13 22:05] VITALS: RESP 16
[2022-05-13] MEDS: ondansetron 2 mg/ML SDV 2 mL 4 MG IVP (22:05)
[2022-05-13] MEDS: HYDROmorphone 1 mg/mL INJ 1 mL IVP (22:05)
[2022-05-13] MEDS: sodium chloride 0.9% 500 ML 999 ML IV (22:05)
[2022-05-13 22:17] LABS: Basophils # 0.1 10^3/uL (0.0-0.1); Basophils % 0.5 %; Eosinophils # 0.1 10^3/uL (0.0-0.8); Eosinophils % 0.7 %; Hematocrit 42.8 % (42.0-52.0); Hemoglobin 14.6 g/dL (11.7-16.6); Lymphocytes # 1.3 10^3/uL (0.8-4.8); Lymphocytes % 12.8 %; Mean Corpuscular HGB Conc 34.1 g/dL (30.0-36.0); Mean Corpuscular Volume 87.9 fl (80-94); Mean Platelet Volume 10.2 fL (7.4-10.4); Monocytes # 0.7 10^3/uL (0.2-0.9); Monocytes % 6.7 %; Neutrophils # 7.74 10^3/uL (1.8-7.7); Neutrophils % 78.9 %; Nucleated Red Blood Cells % 0 %; Platelet Count 148 10^3/cmm (130-400); Red Blood Count 4.87 10^6/uL (4.1-5.3); Red Cell Distribution Width 12.1 % (12.1-15.1); White Blood Count 9.8 10^3/uL (4.0-10.0)
[2022-05-13 22:37] LABS: Lactic Sepsis W/Reflex 2.4 mmol/L (0.5-2.2)
[2022-05-13 22:39] LABS: Alanine Aminotransferase 57 U/L (0-41); Albumin Level 4.3 g/dL (3.5-5.2); Alkaline Phosphatase 78 U/L (40-130); Blood Urea Nitrogen 19 mg/dL (8-23); Calcium 9.8 mg/dL (8.5-10.5); Carbon Dioxide 25 mmol/L (22-29); Chloride 94 mmol/L (98-107); Globulin 3.3 g/dL (1.3-4.6); Glomerular Filtration Rate 84.2 mL/min (90-130); Glucose 189 mg/dL (65-115); Osmolality Calculated 277 mOsm/kg (285-295); Sodium 130 mmol/L (136-145); Total Bilirubin 0.9 mg/dL (0.15-1.2); Total Protein 7.6 g/dL (6.6-8.7)
[2022-05-13 22:46] LABS: Anion Gap 15.4 (5-19); Aspartate Amino Transferase 69 U/L (0-40); Potassium 4.4 mmol/L (3.5-5.1)
[2022-05-13 23:00] VITALS: BP 227/110; O2SAT 92
[2022-05-14] VITALS: BP 219/104; O2SAT 93
[2022-05-14 00:01] LABS: Reflex Lactate Order REFLEX LACTIC ORDERD
[2022-05-14 00:24] LABS: Urine Appearance SL Hazy (CLEAR); Urine Color Yellow (Yellow); pH Urine 5 (5-7)
[2022-05-14 00:25] LABS: Add Urine Microscopic? YES; Bilirubin Urine Neg (Negative); Blood Urine 3+ (Negative); Glucose Urine UA Norm (Normal); Ketones Urine Negative (Negative); Leukocyte Esterase Urine Negative (Negative); Nitrate Urine Negative (Negative); Protein Urine Trace (Negative); Specific Gravity, Urine 1.015 (1.005-1.030); Urobilinogen Urine Norm (Negative)
[2022-05-14 00:27] LABS: RBC Urine 40-50 /hpf (0-2)
[2022-05-14 00:28] LABS: Hyaline Casts Urine 0-4 /lpf; WBC Urine 0-4 /hpf (0-5)
[2022-05-14] MEDS: HYDROcodone-acetaminophen 7.5-325 mg Tablet 2 TAB PO (00:39)
[2022-05-14] MEDS: ondansetron 4 MG Tablet PO (00:39)
[2022-05-14 01:05] LABS: Lactic Acid level (Lactate) 1.8 mmol/L (0.5-2.2)
== END 2022-05-14 00:40 | disposition home or self-care (01) ==
PROVIDERS: Emergency Provider Nurse Practitioner Family; PCP Family Medicine
DX: N13.2 Hydronephrosis with renal and ureteral calculous obstruction (principal)
CPT/HCPCS: 51798; 74176; 80053; 81001; 81003; 83605; 85025; 96361; 96374; 96375; 99285; J1170; J2405; J7040; Q0162

== ENCOUNTER → 2023-01-23 10:09 | Outpatient (BNVA) | payer MEDICARE, SELFPAY | PROVIDERS: PCP Family Medicine; Visit Provider Podiatrist Foot & Ankle Surgery | DX: E11.42 Type 2 diabetes mellitus with diabetic polyneuropathy (principal); L60.3 Nail dystrophy | CPT/HCPCS: 11721 ==

== ENCOUNTER → 2023-09-25 09:12 | Outpatient (BNVA) | payer MEDICARE, SELFPAY | PROVIDERS: PCP Family Medicine; Visit Provider Podiatrist Foot & Ankle Surgery | DX: L60.3 Nail dystrophy (principal); E11.42 Type 2 diabetes mellitus with diabetic polyneuropathy | CPT/HCPCS: 11721 ==

== ENCOUNTER 2024-06-09 20:29 | Emergency (ER) | payer MEDICARE, SELFPAY ==
[2024-06-09] VITALS (19 sets, daily range): BP systolic 88–110; BP diastolic 35–56; PULSE 63–69; RESP 17–35; O2SAT 91–100; BMI 32.5
--- NOTE | 2024-06-09 20:31 | ECG_ITS ---
[facility] Test Date: 2024-06-09 Pat Name: Juan Pablo Cheney Department: Room: Gender: Male Front Office Attendant: : 1955 Requested By: Diamond Terrazas Order Number: [id number] Knight MD: Ernie Mancilla M.D. Measurements Intervals Lane Rate: 70 P: 23 NM: 186 QRS: -10 QRSD: 130 T: 77 QT: 421 QTc: 455 Interpretive Statements SINUS RHYTHM POSSIBLE ANTERIOR MYOCARDIAL INFARCTION , PROBABLY OLD [30 ms Q WAVE IN V3/V4, OR R < 0.2 mV IN V4] No previous ECG available for comparison Electronically Signed On 06-10-2024 21:33:39 ENVIRONMENTAL WEB CRAWLER by Ernie Mancilla M.D. [email or web address]
--- NOTE | 2024-06-09 20:38 | CTR_ITS ---
PROCEDURE INFORMATION: Exam: CT Head Without Contrast Exam date and time: 06/09/2024 8:44 PM Age: 68 years old Clinical indication: Stroke-like symptoms; Other: RT side weakness; Additional info: Fall, head injury TECHNIQUE: Imaging protocol: Computed tomography of the head without contrast. Radiation optimization: All CT scans at this facility use at least one of these dose optimization techniques: automated exposure control; mA and/or kV adjustment per patient size (includes targeted exams where dose is matched to clinical indication); or iterative reconstruction. Other technique: STROKE PROTOCOL was implemented. COMPARISON: CT head wo con* [id number] 02/26/2022 1:35 AM RADIATION DOSE METRICS: Total DLP (mGy-cm): 1197.98 FINDINGS: Brain: There is mild cortical atrophy. Low-density changes in the white matter are consistent with nonspecific small vessel chronic ischemic change. There is no intracranial mass, hemorrhage or edema. Cerebral ventricles: No ventriculomegaly. Paranasal sinuses: Visualized sinuses are unremarkable. No fluid levels. Mastoid air cells: Visualized mastoid air cells are well aerated. Bones: Unremarkable. No acute fracture. Soft tissues: Unremarkable. CT/CT head wo con* [id number] IMPRESSION: No acute intracranial finding. ASSESSMENT: ASPECTS ([facility]a [facility] Stroke Program Early CT Score) is 10.
--- NOTE | 2024-06-09 20:38 | XRR_ITS ---
PROCEDURE INFORMATION: Exam: XR Chest Exam date and time: 06/09/2024 8:46 PM Age: 68 years old Clinical indication: Pain; Chest pressure; Additional info: Weakness TECHNIQUE: Imaging protocol: Radiologic exam of the chest. Views: 1 view. COMPARISON: CT kidney stone [id number] 05/13/2022 10:14 PM FINDINGS: Lungs: Visualized portions of the lungs are clear. There is no pulmonary venous congestion. Pleural spaces: Unremarkable. No pleural effusion. No pneumothorax. Heart/Mediastinum: The heart is mildly enlarged. Bones/joints: Unremarkable. XR/XR chest 1V portable [id number] IMPRESSION: No acute infiltrate.
[2024-06-09 21:14] LABS: Basophils # 0.1 10^3/uL (0.0-0.1); Basophils % 0.9 %; Eosinophils # 0.3 10^3/uL (0.0-0.8); Eosinophils % 5.1 %; Lymphocytes # 1.1 10^3/uL (0.8-4.8); Lymphocytes % 17.2 %; Mean Corpuscular Hemoglobin 27.1 pg (27-33); Mean Corpuscular Volume 90.2 fl (82-101); Mean Platelet Volume 10.9 fL (7.4-10.4); Monocytes # 0.4 10^3/uL (0.2-0.9); Monocytes % 5.6 %; Neutrophils # 4.56 10^3/uL (1.8-7.7); Neutrophils % 70.6 %; Nucleated Red Blood Cells % 0 %; Platelet Count 150 10^3/cmm (157-399); Red Blood Count 2.66 10^6/uL (3.85-5.65); Red Cell Distribution Width 16.9 % (12.1-15.1); White Blood Count 6.46 10^3/uL (3.29-11.43)
--- NOTE | 2024-06-09 21:16 | W.ED.CHESTPA ---
HPI - Chest Pain General: Chief Complaint: ER Hold Stated Complaint: CHEST PAIN Time Seen by Provider: 06/09/24 20:38 History of Present Illness: 68-year-old man with a history of diabetes and anxiety with recent prolonged admission to [facility]. tells me this was for congestive heart failure for which she had a large amount of fluid removed. She says he also had anemia and had to be transfused but was a difficult type and screen so this took over a day. She says he also had renal failure which have been improving some. She also says he had endocarditis and was on IV antibiotics for 40 days. He presents today by ambulance with complaints of right neck and arm pain. He is having difficulty moving his right arm. Seems that this is more from pain but he says it feels weak as well. No other focal motor deficits. He is having generalized weakness. No known fevers. He is not altered. Also complained of some right chest pain. Related Data Home Medications Medication Instructions Recorded Confirmed alprazolam 0.5 mg tablet (Xanax) 1 mg PO BID 03/06/20 09/25/23 bupropion HCl 150 mg 24 hr tablet, 150 mg PO BID 03/06/20 09/25/23 extended release (Wellbutrin XL) glipizide 10 mg tablet 10 mg PO BID 03/06/20 09/25/23 ibuprofen 800 mg tablet 800 mg PO BID 03/06/20 09/25/23 methocarbamol 750 mg tablet 750 mg PO BID 03/06/20 09/25/23 trazodone 50 mg tablet 100 mg PO ONCE 03/06/20 09/25/23 Previous Rx's Medication Instructions Recorded ondansetron HCl 4 mg tablet 4 mg PO Q6H PRN nausea and 03/06/20 (Zofran) vomiting #20 tabs ondansetron 4 mg disintegrating 4 mg PO Q8H PRN nausea and 05/13/22 tablet vomiting #10 tabs Allergies Allergy/AdvReac Type Severity Reaction Status Date / Time metformin Allergy Unknown Verified 09/25/23 09:15 Review of Systems Narrative: Constitutional symptoms: Negative except as documented in HPI. Skin symptoms: Negative except as documented in HPI. Eye symptoms: Negative except as documented in HPI. ENMT symptoms: Negative except as documented in HPI. Respiratory symptoms: Negative except as documented in HPI. Cardiovascular symptoms: Negative except as documented in HPI. Gastrointestinal symptoms: Negative except as documented in HPI. Genitourinary symptoms: Negative except as documented in HPI. Musculoskeletal symptoms: Negative except as documented in HPI. Neurologic symptoms: Negative except as documented in HPI. Psychiatric symptoms: Negative except as documented in HPI. Endocrine symptoms: Negative except as documented in HPI. PFS ED PFSH: Medical History New onset of congestive heart failure Status post transesophageal echocardiogram (HANG) Endocarditis A-fib DM type 2 (diabetes mellitus, type 2) Anxiety Social History Alcohol intake: never Substance/Drug Use: never Physical Exam Narrative: EXAM NARRATIVE: General: Alert, no acute distress. Skin: Warm, dry. Head: Normocephalic, atraumatic. Neck: Supple, trachea midline. Eye: Extraocular movements are intact. Ears, nose, mouth and throat: mucosa moist. Cardiovascular: Regular, Normal peripheral perfusion. Very trace tibial edema Respiratory: Lungs are clear to auscultation, respirations are non-labored, breath sounds are equal, Symmetrical chest wall expansion. Gastrointestinal: Soft, Nontender, Non distended Musculoskeletal: Normal ROM, no deformity. Neurological: Alert and oriented, No focal neurological deficit observed. Patient has right arm pain and this is right arm feels weak. Seems that his difficulty lifting it is secondary to pain. No other focal motor deficits Psychiatric: Cooperative, appropriate mood & affect. Course Vital Signs: Vital signs: Vital Signs Pulse Rate 63 06/10/24 00:30 Respiratory Rate 21 H 06/10/24 00:30 Blood Pressure 115/60 06/10/24 00:30 Pulse Oximetry 97 06/10/24 00:30 Oxygen Delivery Me thod Room Air 06/10/24 00:00 MDM - Chest Pain Medical Decision Making Medical decision making: Differential diagnosis for patient presenting with generalized weakness including but not limited to and based on the above HPI, review of systems and physical exam: Sepsis. Dehydration. Renal failure. Electrolyte abnormalities. Anemia. Congestive heart failure. Hypotension. Coronary syndrome. Hepatitis. Cirrhosis. Infections such as pneumonia, urinary tract infection, [place]ne illness, Cellulitis, Viral infections including influenza and Covid-19. Workup: labwork and lab/exam driven imaging ordered to evaluate, rule in and rule out above pathologies. Consultation: I have very low suspicion for stroke but as he presented with concerns for stroke a stroke alarm was called and I spoke with Dr. Paz who agrees this likely is not an acute cerebrovascular event. EKG: Time 2030. Rate 70. Normal sinus rhythm, quite a bit of ST depression but no obvious ST elevation or signs of an acute [place]., no ectopy, normal IA & QRS intervals, This was reviewed and interpreted by myself the ER physician at 2034 CT head: No acute intracranial process. no intracranial hemorrhage, no evidence of infarct. no evidence of acute fracture.This was reviewed and interpreted by myself the ER physician. Chest x-ray: No acute process. No infiltrate. No pneumothorax. This was reviewed and interpreted by myself the emergency room physician. I also reviewed the radiology report. Lab Review: Laboratory results were reviewed and interpreted by myself the emergency room physician. Patient has an acute drop in his hemoglobin to 7.2. It is 9.1 on his [facility] records a few days ago. Also has an acute worsening of his renal failure. He has a BUN of 89 and a creatinine of 3. He was 67 and 2.1 around a week ago. His potassium slightly elevated at 5.9. I reviewed the patient's medical record. Consultation: I spoke with Dr. Hatch who is on-call for the hospitalist service and requested admission. He evaluated the patient and is written the consultation note, however the patient and the family have requested transfer to [place] as their care had been there before. I have discussed with them that they may be responsible for transfer costs and that there is currently a long wait for [facility] and they may end up having to stay here in the emergency room. They still request transfer. Reexamination: Patient remained stable. No increased work of breathing. No altered mental status. No focal motor deficits. Consultation: I spoke with Dr. Quinteros who is on-call for the hospitalist service at [facility] in [place]. He is excepted the patient to waiting list for a [facility] bed. Apparently he does not have systolic heart failure but rather valve insufficiency secondary to his endocarditis. Assessment and plan: Uremia Acute on chronic renal insufficiency Anemia Elevated troponin -I discussed the patient with the hospitalist on-call who is admitting the patient. - Discussed findings and plan with patient. Answered any questions. - All laboratory values were reviewed and interpreted personally by myself, the ER physician - All imaging was reviewed and interpreted personally by myself, the ER physician. - Evaluation and treatment of this problem were appropriate in the emergency setting Lab Data 06/09/24 21:08 06/09/24 21:08 Radiology Impressions Chest X-Ray 06/09/24 20:38 IMPRESSION: No acute infiltrate. Head CT 06/09/24 20:38 IMPRESSION: No acute intracranial finding. ASSESSMENT: ASPECTS ([place] Stroke Program Early CT Score) is 10. Abdomen/Pelvis CT 06/09/24 22:13 IMPRESSION: 1. Small nonobstructing left kidney stone 2. No evidence of hydronephrosis or urinary tract obstruction 3. Cirrhosis not significantly changed. 4. Small ascites 5. Small bilateral pleural effusions 6. Anemia Laboratory Results WBC 6.46 10^3/uL (3.29-11.43) 06/09/24 21:08 RBC 2.66 10^6/uL (3.85-5.65) L 06/09/24 21:08 Hgb 7.20 g/dL (11.27-16.99) L 06/09/24 21:08 Hct 24.0 % (37-53) L 06/09/24 21:08 MCV 90.2 fl (82-101) 06/09/24 21:08 MCH 27.1 pg (27-33) 06/09/24 21:08 MCHC 30.0 g/dL (30-55) 06/09/24 21:08 RDW 16.9 % (12.1-15.1) H 06/09/24 21:08 Plt Count 150 10^3/cmm (157-399) L 06/09/24 21:08 MPV 10.9 fL (7.4-10.4) H 06/09/24 21:08 Neut % (Auto) 70.6 % 06/09/24 21:08 Lymph % (Auto) 17.2 % 06/09/24 21:08 [place] % (Auto) 5.6 % 06/09/24 21:08 Eos % (Auto) 5.1 % 06/09/24 21:08 Baso % (Auto) 0.9 % 06/09/24 21:08 Neut # (Auto) 4.56 10^3/uL (1.8-7.7) 06/09/24 21:08 Lymph # (Auto) 1.1 10^3/uL (0.8-4.8) 06/09/24 21:08 [place] # (Auto) 0.4 10^3/uL (0.2-0.9) 06/09/24 21:08 Eos # (Auto) 0.3 10^3/uL (0.0-0.8) 06/09/24 21:08 Baso # (Auto) 0.1 10^3/uL (0.0-0.1) 06/09/24 21:08 Nucleated RBC % (auto) 0 % 06/09/24 21:08 Nucleated RBCs # 0.0 /100WBC 06/09/24 21:08 Specimen Type Arterial 06/09/24 21:58 Sample Site Brachial, right 06/09/24 21:58 ABG pH 7.48 (7.35-7.45) H 06/09/24 21:58 ABG pCO2 25.6 mmHg (35-45) L 06/09/24 21:58 ABG pO2 74.6 mmHg (80.0-100.0) L 06/09/24 21:58 ABG PO2/FiO2 Ratio 355 06/09/24 21:58 ABG HCO3 18.9 mmol/L (22-26) L 06/09/24 21:58 ABG O2 Saturation 97.0 06/09/24 21:58 ABG Base Excess -4.5 mmol/L (-2.0-2.0) L 06/09/24 21:58 Brent Test N/a 06/09/24 21:58 A-a O2 Gradient 5.8 mmHg (5-10) 06/09/24 21:58 Hematocrit 15.5 % (42-52) L 06/09/24 21:58 Hgb O2 Saturation 94.4 % (95-100) L 06/09/24 21:58 Carboxyhemoglobin 2.0 %THgb (0.4-20.1) 06/09/24 21:58 Methemoglobin 0.7 % (0.4-1.5) 06/09/24 21:58 Total Hemoglobin 5.1 g/dL (14-18) L 06/09/24 21:58 Sodium 138.0 mmol/L (131-143) 06/09/24 21:58 Potassium 5.2 mmol/L (3.5-5.0) H 06/09/24 21:58 Glucose 149.0 mg/dL (70-115) H 06/09/24 21:58 Ionized Calcium 1.2 mmol/L (1.1-1.4) 06/09/24 21:58 O2 Delivery Device None 06/09/24 21:58 FiO2 21.0 % 06/09/24 21:58 Stick Inserter ID Luiz 06/09/24 21:58 Sodium 135 mmol/L (136-145) L 06/09/24 21:08 Potassium 5.9 mmol/L (3.5-5.1) H 06/09/24 21:08 Chloride 100 mmol/L (98-107) 06/09/24 21:08 Carbon Dioxide 18 mmol/L (22-29) L 06/09/24 21:08 Anion Gap 22.9 (5-19) H 06/09/24 21:08 BUN 89 mg/dL (8-23) H* D 06/09/24 21:08 Creatinine 3.0 mg/dL (0.7-1.2) H 06/09/24 21:08 GFR Calculation 20.9 mL/min (90-130) L 06/09/24 21:08 Glucose 160 mg/dL (65-115) H 06/09/24 21:08 POC Glucose 177 mg/dL (70-110) H 06/09/24 20:53 Calculated Osmolality 311 mOsm/kg (285-295) H 06/09/24 21:08 Lactic Acid 2.8 mmol/L (0.5-2.2) H 06/09/24 21:08 Calcium 8.8 mg/dL (8.5-10.5) 06/09/24 21:08 Total Bilirubin 0.5 mg/dL (0.15-1.2) 06/09/24 21:08 AST 18 U/L (0-40) 06/09/24 21:08 ALT 9 U/L (0-41) 06/09/24 21:08 Alkaline Phosphatase 83 U/L (40-130) 06/09/24 21:08 Troponin T Baseline 60 ng/L (0-15) H 06/09/24 21:08 Total Protein 6.5 g/dL (6.6-8.7) L 06/09/24 21:08 Albumin 3.6 g/dL (3.5-5.2) 06/09/24 21:08 Globulin 2.9 g/dL (1.3-4.6) 06/09/24 21:08 Urine Color Yellow (Yellow) 06/09/24 21:45 Urine Appearance Clear (CLEAR) 06/09/24 21:45 Urine pH 5.0 (5-7) 06/09/24 21:45 Ur Specific [place] 1.016 (1.005-1.030) 06/09/24 21:45 Urine Protein 2+ (Negative) A 06/09/24 21:45 Urine Glucose (UA) Negative (Normal) 06/09/24 21:45 Urine Ketones Trace (Negative) 06/09/24 21:45 Urine Blood Negative (Negative) 06/09/24 21:45 Urine Nitrate Negative (Negative) 06/09/24 21:45 Urine Bilirubin Negative (Negative) 06/09/24 21:45 Urine Urobilinogen 1.0 mg/dL (Negative) 06/09/24 21:45 Ur Leukocyte Esterase Trace (Negative) A 06/09/24 21:45 Urine RBC 3-5 /hpf (0-2) 06/09/24 21:45 Urine WBC 6-10 /hpf (0-5) 06/09/24 21:45 Ur Squamous Epith Cells 6-10 /hpf (0-5) 06/09/24 21:45 Amorphous Sediment Not Reportable 06/09/24 21:45 Urine Bacteria None seen /hpf (NONE) 06/09/24 21:45 Hyaline Casts 52.54 /lpf 06/09/24 21:45 Acetaminophen < 5.0 ug/mL (10-30) L 06/09/24 21:08 Ethyl Alcohol < 10 mg/dL (0-10) 06/09/24 21:08 Coronavirus (PCR) Negative (Negative) 06/09/24 22:45 Influenza A (PCR) Negative (Negative) 06/09/24 22:45 Influenza Type B (PCR) Negative (Negative) 06/09/24 22:45 RSV (PCR) Negative (Negative) 06/09/24 22:45 Blood Type A Positive 06/09/24 21:26 Rho(D) Type Rh positive 06/09/24 21:26 Antibody Screen Positive 06/09/24 21:26 Crossmatch See Detail 06/09/24 21:26 All radiology interpretation(s) finalized by discharge Discharge Plan Discharge Patient Disposition: Xfer Short-Term Hosp Clinical Impression: Acute on chronic anemia, Acute kidney injury superimposed on chronic kidney disease, Hyperkalemia, Melanotic stools, Hypotension Condition: Stable Coding Level of Care Code ED Research Hydraulic Engineer for Mildred Miles
[2024-06-09 21:18] LABS: Glucose Point of Care 177 mg/dL (70-110)
[2024-06-09] MEDS: sodium chloride 0.9% 500 ML 999 ML IV (21:21)
[2024-06-09 21:33] LABS: Alanine Aminotransferase 9 U/L (0-41); Albumin Level 3.6 g/dL (3.5-5.2); Anion Gap 22.9 (5-19); Aspartate Amino Transferase 18 U/L (0-40); Calcium 8.8 mg/dL (8.5-10.5); Carbon Dioxide 18 mmol/L (22-29); Chloride 100 mmol/L (98-107); Creatinine Clr Calc Pharmacy 29.6178; Globulin 2.9 g/dL (1.3-4.6); Glomerular Filtration Rate 20.9 mL/min (90-130); Glucose 160 mg/dL (65-115); Osmolality Calculated 311 mOsm/kg (285-295); Potassium 5.9 mmol/L (3.5-5.1); Sodium 135 mmol/L (136-145); Total Bilirubin 0.5 mg/dL (0.15-1.2); Total Protein 6.5 g/dL (6.6-8.7)
[2024-06-09 21:34] LABS: Lactic Sepsis W/Reflex 2.8 mmol/L (0.5-2.2)
[2024-06-09 21:35] LABS: Troponin(5th) Baseline 60 ng/L (0-15)
[2024-06-09 21:37] LABS: Acetaminophen < 5.0 ug/mL (10-30); Alcohol Level < 10 mg/dL (0-10)
[2024-06-09 21:38] LABS: Blood Urea Nitrogen 89 mg/dL (8-23)
[2024-06-09 21:44] LABS: Alkaline Phosphatase 83 U/L (40-130)
[2024-06-09 21:55] LABS: Bilirubin Urine Negative (Negative); Blood Urine Negative (Negative); Glucose Urine UA Negative (Normal); Ketones Urine Trace (Negative); Leukocyte Esterase Urine Trace (Negative); Nitrate Urine Negative (Negative); Protein Urine 2+ (Negative); Specific Gravity, Urine 1.016 (1.005-1.030); Urine Appearance Clear (CLEAR); Urine Color Yellow (Yellow)
[2024-06-09 22:00] LABS: Bacteria Urine None Seen /hpf; Hyaline Casts Urine 52.54 /lpf
[2024-06-09 22:11] LABS: ABG PCO2 25.6 mmHg (35-45); ABG PH Result 7.48 (7.35-7.45); Alveolar-Arterial Oxygen Gradi 5.8 mmHg (5-10); Arterial Blood Gas Hematocrit 15.5 % (42-52); Base Excess ABG -4.5 mmol/L (-2.0-2.0); Blood Gas Operator Identificat SAM; Blood Gas Sample Site Brachial, right; Blood Gas Sample Type Arterial; HCO3 ABG 18.9 mmol/L (22-26); HGB O2 Sat 94.4 % (95-100); Ionized Calcium Level - ABG 1.2 mmol/L (1.1-1.4); Methemoglobin 0.7 % (0.4-1.5); PO2 ABG 74.6 mmHg (80.0-100.0); PO2 FiO2 Ratio Arterial Blood 355; Potassium Level - ABG 5.2 mmol/L (3.5-5.0); Total Hemoglobin 5.1 g/dL (14-18)
--- NOTE | 2024-06-09 22:13 | CTR_ITS ---
PROCEDURE INFORMATION: Exam: CT Abdomen And Pelvis Without Contrast Exam date and time: 06/09/2024 10:38 PM Age: 68 years old Clinical indication: Other: Renal failure; Additional info: Renal failure, R/O obstructive uropathy per hospitalist TECHNIQUE: Imaging protocol: Computed tomography of the abdomen and pelvis without contrast. Radiation optimization: All CT scans at this facility use at least one of these dose optimization techniques: automated exposure control; mA and/or kV adjustment per patient size (includes targeted exams where dose is matched to clinical indication); or iterative reconstruction. COMPARISON: CT kidney stone [id number] 05/13/2022 10:14 PM RADIATION DOSE METRICS: Total DLP (mGy-cm): 1124.56 FINDINGS: Limitations: The absence of intravenous contrast lessens the sensitivity of this study for solid organ abnormalities. Lungs: There is mild dependent atelectasis at the lung bases. Pleural spaces: There are small bilateral pleural effusions. Heart: Visible intraventricular septum and low-density of blood within the heart is consistent with significant anemia. Coronary arteries: Atherosclerotic coronary calcifications are noted not fully imaged on this exam. Liver: Liver has nodular contours consistent with cirrhosis. This is not changed from 05/13/2022. Gallbladder and biliary ducts: The gallbladder is normal. There is no common bile duct dilation. Pancreas: The pancreas is normal. Spleen: The spleen is normal. Adrenal glands: The adrenal glands are normal. Kidneys and ureters: There is a 3 mm sized calcification lower pole left kidney consistent with small nonobstructing stone in a calyx. 11 mm sized exophytic cyst lower pole right kidney not significantly changed. There is no evidence of hydronephrosis. There is no stone along the course of either ureter. Stomach and bowel: There is no evidence of colitis/diverticulitis. There is no evidence of intestinal obstruction. Appendix: A normal appendix is identified. Intraperitoneal space: There is a small amount of free intraperitoneal fluid present. Vasculature: The aorta demonstrates mild atherosclerotic calcification. Lymph nodes: There is no evidence of lymphadenopathy. Urinary bladder: Unremarkable as visualized. Reproductive: Unremarkable as visualized. Bones/joints: Unremarkable. No acute fracture. Soft tissues: There is a moderate size umbilical hernia containing only fat. There is small left inguinal hernia containing only fat. This appears to be a pantaloon type hernia there is also small right inguinal hernia containing only fat. CT/CT abdomen pelvis wo con [id number] IMPRESSION: 1. Small nonobstructing left kidney stone 2. No evidence of hydronephrosis or urinary tract obstruction 3. Cirrhosis not significantly changed. 4. Small ascites 5. Small bilateral pleural effusions 6. Anemia
--- NOTE | 2024-06-09 22:39 | ECG_ITS ---
[facility] Date: 2024-[facility]10 Pat Name: Juan Pablo Cheney Department: Room: EDIP Gender: Male Tax Compliance Officer: : 1955 Requested By: Diamond Terrazas Order Number: [id number] Eugene MD: Ernie Mancilla M.D. Measurements Intervals [place] Rate: 65 P: 1 [place]: 199 QRS: -32 QRSD: 122 T: 82 QT: 416 QTc: 433 Interpretive Statements SINUS RHYTHM LEFT AXIS DEVIATION [QRS AXIS < -30] MODERATE INTRAVENTRICULAR CONDUCTION DELAY [110+ ms QRS DURATION] MODERATE ST DEPRESSION [0.05+ mV ST DEPRESSION] Compared to ECG 06/09/2024 20:31:07 Left-axis deviation now present Intraventricular conduction delay now present ST (T wave) deviation now present Myocardial infarct finding no longer present Electronically Signed On 06-10-2024 21:54:33 COMPLEX MANAGER by Ernie Mancilla M.D. [email or web address]
[2024-06-09 22:41] LABS: UA Slide Review UA Slide Review Perf
--- NOTE | 2024-06-09 23:00 | P.HP_ITS ---
Providers/Chief Complaint 2 Primary Care Provider: Aura Camilo DO Chief Complaint: CHEST PAIN History of Present Illness Juan Pablo Cheney is a 68 year old male who has recently been diagnosed with valve regurgitation, congestive heart failure, new onset A-fib, endocarditis after tooth infection, finished 6 weeks of antibiotics he was discharged from [facility] on April 29 presenting today with chief complaint of generalized weakness and fatigue. Patient is stating that he has been noticing dark-colored stool but he has been taking iron, he is not sure of any diagnosis such as chronic kidney disease. Patient is stating that today he just had no energy at all to walk on his own, he lives with his , he has not noticed any bright bleed per rectum hematemesis. He has been compliant with Eliquis. Workup in the ER revealed hemoglobin 7.2 high BUN with creatinine 3, June 03 his hemoglobin was 9.1 creatinine 2.1 BUN 67 When he came in his blood pressure was 88/50-minute mercury, patient is pale has hypotension related to possible GI bleed, high lactic acid without fever or significant leukocytosis Patient wants to be transferred to [facility], ER still have 1 more patient waiting for [facility] bed, considering the fact he will take a lot of time to be transferred hospitalist was requested to admit him ER physician has requested 2 units PRBC to keep hemoglobin above 8 I will request stool guaiac test We will keep patient on clear liquid. status along Protonix Last dose of Eliquis was in the evening Review of Systems 2 Const: Reports: chills, body aches and fatigue; Denies: fever(s) Eyes: Denies: change in vision ENMT: Denies: throat pain Card: Reports: swelling of feet/ankles and orthopnea; Denies: chest pain Resp: Reports: dyspnea Medications/Allergies Home Medications Medication Instructions Recorded Confirmed Last Taken Type alprazolam 0.5 mg tablet (Xanax) 1 mg PO BID 03/06/20 09/25/23 Unknown History bupropion HCl 150 mg 24 hr tablet, 150 mg PO BID 03/06/20 09/25/23 Unknown History extended release (Wellbutrin XL) glipizide 10 mg tablet 10 mg PO BID 03/06/20 09/25/23 Unknown History ibuprofen 800 mg tablet 800 mg PO BID 03/06/20 09/25/23 Unknown History methocarbamol 750 mg tablet 750 mg PO BID 03/06/20 09/25/23 Unknown History ondansetron HCl 4 mg tablet 4 mg PO Q6H PRN nausea and 03/06/20 09/25/23 Unknown Rx (Zofran) vomiting #20 tabs trazodone 50 mg tablet 100 mg PO ONCE 03/06/20 09/25/23 Unknown History ondansetron 4 mg disintegrating 4 mg PO Q8H PRN nausea and 05/13/22 09/25/23 Unknown Rx tablet vomiting #10 tabs Allergies Allergy/AdvReac Type Severity Reaction Status Date / Time metformin Allergy Unknown Verified 09/25/23 09:15 PFSH Acute 2 PFSH: Medical History New onset of congestive heart failure Status post transesophageal echocardiogram (HANG) Endocarditis A-fib DM type 2 (diabetes mellitus, type 2) Anxiety Social History Alcohol intake: never Substance/Drug Use: never Vitals/I&O/Wt Last Vital Signs Pulse 64 06/09/24 22:45 Resp 19 H 06/09/24 22:45 BP 104/47 06/09/24 22:00 Pulse Ox 100 06/09/24 22:45 O2 Del Method Room Air 06/09/24 21:25 Weight last 48 hrs Weight 108.862 kg Physical Exam 2 Narrative: Clinical sign of fluid overload Awake and alert Blood pressure 110/60 mg acute Intermittent A-fib with sinus rhythm, currently no active chest pain shortness of breath Awake and alert GCS 15 no active focal deficit Lethargic and fatigue at the bedside Anasarca Pale complexion Variable S1-S2 Nontender distended abdomen Data 06/09/24 21:08 06/09/24 21:08 Micro: Microbiology 06/09/24 21:26 Blood Culture - Preliminary Blood SPECIMEN COLLECTED 06/09/24 21:08 Blood Culture - Preliminary Blood SPECIMEN COLLECTED A&P Assessment and plan (1) A-fib: (2) DM type 2 (diabetes mellitus, type 2): Qualifiers: Diabetes mellitus snf insulin use: with salvage determiner use (3) Diabetic peripheral neuropathy associated with type 2 diabetes mellitus: (4) Acute on chronic anemia: (5) Acute kidney injury superimposed on chronic kidney disease: (6) Hyperkalemia: (7) Melanotic stools: (8) New onset of congestive heart failure: (9) Metabolic acidosis: Plan Acute GI blood loss anemia Melanotic stool Request school guaiac test Start Protonix Keep on clear liquids Last dose of Eliquis was in the evening Patient wants to be transferred to [facility] 2 unit PRBC requested High BUN are likely related to her GI bleed Patient recently started Eliquis Patient endorsing melanotic stools attributing to iron intake Acute on chronic kidney disease with hyperkalemia and acidosis Start bicarb drip Will give hyperkalemia cocktail, BUN and creatinine has worsened New onset CHF EF unknown, will request records from [facility] Hold off on diuretics as patient is hypotensive at this point I would not repeat echo Endocarditis status post 6 weeks treatments, patient became bacteremic after dental infection Patient has been treated at [facility] In case of further worsening patient may need GI and nephro consultation: Hence wants his medical treatment to be at 1 place [facility] I do anticipate that he will take longer to get transferred hence getting admitted to our hospital Clear liquid diet Protonix Full code Hold Eliquis Attestations 2 Medical Necessity Statement*: More than 2 midnights anticipated Diagnoses A-fib I48.91 DM type 2 (diabetes mellitus, type 2) E11.9 Diabetes mellitus salvage determiner insulin use: with salvage determiner use Diabetic peripheral neuropathy associated with type 2 diabetes mellitus E11.42 Acute on chronic anemia D64.9 Acute kidney injury superimposed on chronic kidney disease N17.9; N18.9 Hyperkalemia E87.5 Melanotic stools K92.1 New onset of congestive heart failure I50.9 Metabolic acidosis E87.20
[2024-06-09 23:01] LABS: Reflex Lactate Order REFLEX LACTIC ORDERD
[2024-06-09 23:47] LABS: Covid PCR NEGATIVE (Negative); Influenza A NEGATIVE (Negative); Influenza B NEGATIVE (Negative); Respiratory Syncytial Virus Ce NEGATIVE (Negative)
[2024-06-10] VITALS (21 sets, daily range): BP systolic 95–121; BP diastolic 46–60; PULSE 63–69; RESP 19–30; O2SAT 90–97
[2024-06-10 00:07] LABS: Glucose Point of Care 141 mg/dL (70-110)
[2024-06-10 00:10] LABS: Lactic Acid level (Lactate) 2.2 mmol/L (0.5-2.2)
[2024-06-10 00:13] LABS: Troponin 5 2HR 124.3 ng/L (0-15); Troponin 5 2HR Delta 64.3 ABS# (0-10)
[2024-06-10] MEDS: insulin regular-human 100 units/1 mL 10 UNIT IVP (00:50)
[2024-06-10] MEDS: dextrose 10% 125 ML 750 ML IV (00:51)
[2024-06-10 03:20] LABS: Basophils # 0.1 10^3/uL (0.0-0.1); Eosinophils # 0.3 10^3/uL (0.0-0.8); Eosinophils % 4.3 %; Hematocrit 23.8 % (37-53); Lymphocytes # 1.5 10^3/uL (0.8-4.8); Lymphocytes % 22.2 %; Mean Corpuscular Hemoglobin 26.8 pg (27-33); Mean Corpuscular Volume 92.6 fl (82-101); Mean Platelet Volume 10.8 fL (7.4-10.4); Monocytes # 0.6 10^3/uL (0.2-0.9); Monocytes % 8.7 %; Neutrophils # 4.36 10^3/uL (1.8-7.7); Neutrophils % 63.2 %; Nucleated Red Blood Cells % 0 %; Platelet Count 148 10^3/cmm (157-399); Red Blood Count 2.57 10^6/uL (3.85-5.65); Red Cell Distribution Width 16.9 % (12.1-15.1)
[2024-06-10 03:25] LABS: Troponin 5 6HR 188.6 ng/L (0-15); Troponin 5 6HR Delta 128.6 ng/L (0-12)
[2024-06-10 03:40] LABS: Anion Gap 19.3 (5-19); Calcium 8.9 mg/dL (8.5-10.5); Carbon Dioxide 21 mmol/L (22-29); Chloride 100 mmol/L (98-107); Creatinine Clr Calc Pharmacy 28.6624; Glomerular Filtration Rate 20.1 mL/min (90-130); Glucose 97 mg/dL (65-115); Magnesium 2.6 mg/dL (1.7-2.3); Osmolality Calculated 308 mOsm/kg (285-295); Potassium 5.3 mmol/L (3.5-5.1); Sodium 135 mmol/L (136-145)
[2024-06-10 03:46] LABS: Blood Urea Nitrogen 91 mg/dL (8-23)
== END 2024-06-10 04:00 | disposition short-term general hospital (02) ==
LOC: ER 21:17 → ER IP 23:41
PROVIDERS: Internal Medicine; Emergency Provider Emergency Medicine; PCP Family Medicine
DX: D64.9 Anemia, unspecified (principal); E11.22 Type 2 diabetes mellitus with diabetic chronic kidney disease; N18.9 Chronic kidney disease, unspecified; E87.5 Hyperkalemia; I95.9 Hypotension, unspecified; Z11.52 Encounter for screening for COVID-19; I50.9 Heart failure, unspecified
CPT/HCPCS: 0241U; 36415; 36416; 36600; 51702; 70450; 71045; 74176; 80048; 80051; 80053; 80307; 80503; 81001; 82330; 82805; 82962; 83605; 83735; 84484; 85025; 86850; 86870; 86900; 86920; 87040; 93005; 96361; 96374; 99285; J1815; J7040; J7799

== ENCOUNTER 2024-06-22 23:39 | Inpatient (IN) | payer MEDICARE, SELFPAY ==
--- NOTE | 2024-06-22 23:46 | ECG_ITS ---
[facility] Date: 2024-06-22 Pat Name: Juan Pablo Cheney Department: Room: Gender: Male Pre Press Manager: : 1955 Requested By: Esequiel Padgett Order Number: [id number] Eugene MD: Jenna Ferraro M.D. Measurements Intervals [place] Rate: 62 P: 95 MS: 235 QRS: 60 QRSD: 131 T: 76 QT: 433 QTc: 442 Interpretive Statements SINUS RHYTHM WITH FIRST DEGREE AV BLOCK INDETERMINATE AXIS INTRAVENTRICULAR CONDUCTION DELAY [130+ ms QRS DURATION] Compared to ECG 06/10/2024 00:43:54 First degree AV block now present Indeterminate axis now present Left-axis deviation no longer present ST (T wave) deviation no longer present Electronically Signed On 06-23-2024 19:24:08 PATCH MACHINE OPERATOR by Jenna Ferraro M.D. [id number]
[2024-06-22 23:51] VITALS: BP 133/61; PULSE 60; RESP 24; TEMP 35.9; O2SAT 96; BMI 33.9
--- NOTE | 2024-06-22 23:57 | XRR_ITS ---
PROCEDURE INFORMATION: Exam: XR Chest Exam date and time: 06/22/2024 11:59 PM Age: 68 years old Clinical indication: Other: AMS; Patient HX: Hypoglycemia with severe confusion. TECHNIQUE: Imaging protocol: Radiologic exam of the chest. Views: 1 view. COMPARISON: CR (CHEST, ) 06/09/2024 8:46 PM FINDINGS: Lungs: Unremarkable. No consolidation. Pleural spaces: Small bilateral pleural effusions. Heart/Mediastinum: Mild cardiomegaly. Bones/joints: Unremarkable. XR/XR chest 1V portable [id number] IMPRESSION: Small bilateral pleural effusions.
[2024-06-23] VITALS (46 sets, daily range): BP systolic 102–136; BP diastolic 49–69; PULSE 53–77; RESP 16–31; TEMP 36.3–36.7; O2SAT 84–100
[2024-06-23] MEDS: dextrose 10% 250 ML 1000 ML IV (00:01)
[2024-06-23 00:08] LABS: Glucose Point of Care 41 mg/dL (70-110)
[2024-06-23 00:08] LABS: Glucose Point of Care 144 mg/dL (70-110)
[2024-06-23 00:22] LABS: Add Urine Microscopic? YES; Bacteria Urine None Seen /hpf; Bilirubin Urine Negative (Negative); Blood Urine Negative (Negative); Glucose Urine UA Negative (Normal); Hyaline Casts Urine 21.48 /lpf; Ketones Urine Negative (Negative); Leukocyte Esterase Urine Negative (Negative); Nitrate Urine Negative (Negative); Protein Urine 1+ (Negative); RBC Urine 0-2 /hpf (0-2); Specific Gravity, Urine 1.017 (1.005-1.030); Squamous Epithelial Cell Urine 0-5 /hpf (0-5); Universal Test for UA Present (0); Urine Appearance Clear (CLEAR); Urine Color Yellow (Yellow); Urobilinogen Urine 0.2 mg/dL (Negative); WBC Urine 0-5 /hpf (0-5)
[2024-06-23 00:47] LABS: Add Urine Culture? No
--- NOTE | 2024-06-23 00:48 | W.ED.RECABL ---
HPI - Recheck/Abnormal Lab/Rx General: Chief Complaint: Recheck/Abnormal Lab/Rx Stated Complaint: HYPOGLYCEMIA Time Seen by Provider: 06/22/24 23:41 History of Present Illness: 68-year-old male with a history of coronary disease. He had stents placed last week evidently. He returns with altered mental status. Blood sugar was found to be 43 in the field. They were unable to get IV access, and blood sugar remains 42. He was given IM glucagon without much improvement yet. He is able to recognize his name. He has no other complaints. Related Data Home Medications Medication Instructions Recorded Confirmed alprazolam 0.5 mg tablet (Xanax) 1 mg PO BID 03/06/20 09/25/23 bupropion HCl 150 mg 24 hr tablet, 150 mg PO BID 03/06/20 09/25/23 extended release (Wellbutrin XL) glipizide 10 mg tablet 10 mg PO BID 03/06/20 09/25/23 ibuprofen 800 mg tablet 800 mg PO BID 03/06/20 09/25/23 methocarbamol 750 mg tablet 750 mg PO BID 03/06/20 09/25/23 trazodone 50 mg tablet 100 mg PO ONCE 03/06/20 09/25/23 Previous Rx's Medication Instructions Recorded ondansetron HCl 4 mg tablet 4 mg PO Q6H PRN nausea and 03/06/20 (Zofran) vomiting #20 tabs ondansetron 4 mg disintegrating 4 mg PO Q8H PRN nausea and 05/13/22 tablet vomiting #10 tabs Allergies Allergy/AdvReac Type Severity Reaction Status Date / Time metformin Allergy Unknown Verified 09/25/23 09:15 [facility] ED PFSH: Medical History (Updated 06/23/24 @ 03:26 by Esequiel Morrow DO) Endocarditis Coronary artery disease New onset of congestive heart failure Status post transesophageal echocardiogram (HANG) Endocarditis A-fib DM type 2 (diabetes mellitus, type 2) Anxiety Social History Alcohol intake: never Substance/Drug Use: never Course Vital Signs: Vital signs: Vital Signs Temperature 96.6 F L 06/22/24 23:51 Pulse Rate 61 06/23/24 03:19 Respiratory Rate 21 H 06/23/24 03:19 Blood Pressure 121/60 06/23/24 03:19 Pulse Oximetry 95 06/23/24 03:19 Oxygen Delivery Me thod Room Air 06/23/24 02:45 MDM - Recheck/Abnormal Lab/Rx Medical Decision Making Patient is significantly improved after dextrose 10%. Blood sugars up to 144 and climbing. Chest x-ray shows small bilateral pleural effusions. His BUN is 101, creatinine is 3.3. His potassium is 5.5. Bicarbonate level is 17. He is given 2 A of bicarb, calcium gluconate. He is also given an albuterol treatment. His hemoglobin is 8.5. Platelet count is 150. Urinalysis does not reveal urinary tract infection. Spoke with hospitalist. Willing to admit for acute kidney injury, anemia, hyperkalemia. Lab Data 06/23/24 01:00 06/23/24 01:00 Radiology Impressions Chest X-Ray 06/22/24 23:57 IMPRESSION: Small bilateral pleural effusions. Laboratory Results WBC 11.05 10^3/uL (3.29-11.43) 06/23/24 01:00 RBC 3.27 10^6/uL (3.85-5.65) L 06/23/24 01:00 Hgb 8.50 g/dL (11.27-16.99) L 06/23/24 01:00 Hct 28.2 % (37-53) L 06/23/24 01:00 MCV 86.2 fl (82-101) 06/23/24 01:00 MCH 26.0 pg (27-33) L 06/23/24 01:00 MCHC 30.1 g/dL (30-55) 06/23/24 01:00 RDW 17.4 % (12.1-15.1) H 06/23/24 01:00 Plt Count 150 10^3/cmm (157-399) L 06/23/24 01:00 MPV 10.7 fL (7.4-10.4) H 06/23/24 01:00 Neut % (Auto) 87.2 % 06/23/24 01:00 Lymph % (Auto) 6.9 % 06/23/24 01:00 Lamb % (Auto) 4.9 % 06/23/24 01:00 Eos % (Auto) 0.3 % 06/23/24 01:00 Baso % (Auto) 0.2 % 06/23/24 01:00 Neut # (Auto) 9.64 10^3/uL (1.8-7.7) H 06/23/24 01:00 Lymph # (Auto) 0.8 10^3/uL (0.8-4.8) 06/23/24 01:00 Lamb # (Auto) 0.5 10^3/uL (0.2-0.9) 06/23/24 01:00 Eos # (Auto) 0.0 10^3/uL (0.0-0.8) 06/23/24 01:00 Baso # (Auto) 0.0 10^3/uL (0.0-0.1) 06/23/24 01:00 Nucleated RBC % (auto) 0 % 06/23/24 01:00 Nucleated RBCs # 0.0 /100WBC 06/23/24 01:00 Sodium 131 mmol/L (136-145) L 06/23/24 01:00 Potassium 5.5 mmol/L (3.5-5.1) H 06/23/24 01:00 Chloride 100 mmol/L (98-107) 06/23/24 01:00 Carbon Dioxide 17 mmol/L (22-29) L 06/23/24 01:00 Anion Gap 19.5 (5-19) H 06/23/24 01:00 BUN 101 mg/dL (8-23) H* 06/23/24 01:00 Creatinine 3.3 mg/dL (0.7-1.2) H 06/23/24 01:00 GFR Calculation 18.7 mL/min (90-130) L 06/23/24 01:00 Glucose 116 mg/dL (65-115) H 06/23/24 01:00 POC Glucose 110 mg/dL (70-110) 06/23/24 01:26 Calculated Osmolality 305 mOsm/kg (285-295) H 06/23/24 01:00 Lactic Acid 1.6 mmol/L (0.5-2.2) 06/23/24 01:00 Calcium 9.2 mg/dL (8.5-10.5) 06/23/24 01:00 Total Bilirubin 0.4 mg/dL (0.15-1.2) 06/23/24 01:00 AST 18 U/L (0-40) 06/23/24 01:00 ALT 8 U/L (0-41) 06/23/24 01:00 Alkaline Phosphatase 84 U/L (40-130) 06/23/24 01:00 Total Protein 6.6 g/dL (6.6-8.7) 06/23/24 01:00 Albumin 3.3 g/dL (3.5-5.2) L 06/23/24 01:00 Globulin 3.3 g/dL (1.3-4.6) 06/23/24 01:00 Urine Color Yellow (Yellow) 06/23/24 00:00 Urine Appearance Clear (CLEAR) 06/23/24 00:00 Urine pH 5.0 (5-7) 06/23/24 00:00 Ur Specific [place] 1.017 (1.005-1.030) 06/23/24 00:00 Urine Protein 1+ (Negative) A 06/23/24 00:00 Urine Glucose (UA) Negative (Normal) 06/23/24 00:00 Urine Ketones Negative (Negative) 06/23/24 00:00 Urine Blood Negative (Negative) 06/23/24 00:00 Urine Nitrate Negative (Negative) 06/23/24 00:00 Urine Bilirubin Negative (Negative) 06/23/24 00:00 Urine Urobilinogen 0.2 mg/dL (Negative) 06/23/24 00:00 Ur Leukocyte Esterase Negative (Negative) 06/23/24 00:00 Urine RBC 0-2 /hpf (0-2) 06/23/24 00:00 Urine WBC 0-5 /hpf (0-5) 06/23/24 00:00 Ur Squamous Epith Cells 0-5 /hpf (0-5) 06/23/24 00:00 Amorphous Sediment Not Reportable 06/23/24 00:00 Urine Bacteria None seen /hpf (NONE) 06/23/24 00:00 Hyaline Casts 21.48 /lpf 06/23/24 00:00 All radiology interpretation(s) finalized by discharge Discharge Plan Discharge Patient Disposition: Admitted As Inpatient Admit Provider: Kaveh Hatch Clinical Impression: Acute on chronic anemia, Acute kidney injury superimposed on chronic kidney disease, Hyperkalemia, Metabolic acidosis Condition: Serious Coding Level of Care Code ED [employer] 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
[2024-06-23 01:31] LABS: Basophils % 0.2 %; Eosinophils % 0.3 %; Hematocrit 28.2 % (37-53); Lymphocytes # 0.8 10^3/uL (0.8-4.8); Lymphocytes % 6.9 %; Mean Corpuscular HGB Conc 30.1 g/dL (30-55); Mean Corpuscular Volume 86.2 fl (82-101); Mean Platelet Volume 10.7 fL (7.4-10.4); Monocytes # 0.5 10^3/uL (0.2-0.9); Monocytes % 4.9 %; Neutrophils # 9.64 10^3/uL (1.8-7.7); Neutrophils % 87.2 %; Nucleated Red Blood Cells % 0 %; Platelet Count 150 10^3/cmm (157-399); Red Blood Count 3.27 10^6/uL (3.85-5.65); Red Cell Distribution Width 17.4 % (12.1-15.1); White Blood Count 11.05 10^3/uL (3.29-11.43)
[2024-06-23 01:33] LABS: Glucose Point of Care 110 mg/dL (70-110)
[2024-06-23 01:35] LABS: Lactic Sepsis W/Reflex 1.6 mmol/L (0.5-2.2)
[2024-06-23 01:36] LABS: Alanine Aminotransferase 8 U/L (0-41); Albumin Level 3.3 g/dL (3.5-5.2); Alkaline Phosphatase 84 U/L (40-130); Anion Gap 19.5 (5-19); Aspartate Amino Transferase 18 U/L (0-40); Calcium 9.2 mg/dL (8.5-10.5); Carbon Dioxide 17 mmol/L (22-29); Chloride 100 mmol/L (98-107); Creatinine Clr Calc Pharmacy 27.4674; Globulin 3.3 g/dL (1.3-4.6); Glomerular Filtration Rate 18.7 mL/min (90-130); Glucose 116 mg/dL (65-115); Osmolality Calculated 305 mOsm/kg (285-295); Potassium 5.5 mmol/L (3.5-5.1); Sodium 131 mmol/L (136-145); Total Bilirubin 0.4 mg/dL (0.15-1.2); Total Protein 6.6 g/dL (6.6-8.7)
[2024-06-23 01:45] LABS: Blood Urea Nitrogen 101 mg/dL (8-23)
--- NOTE | 2024-06-23 02:11 | P.HP_ITS ---
Providers/Chief Complaint 2 Primary Care Provider: Aura Camilo DO Chief Complaint: HYPOGLYCEMIA History of Present Illness Juan Pablo Cheney is a 68 year old male 68-year-old male with history of A-fib, endocarditis after dental infection s/p treatment, recently got a stent at [facility] a week ago second stent was not placed because of his chronic kidney disease, presenting today for confusion and hypoglycemia. Patient not able to provide any history stating that he is not sure why he is in the hospital. was called. She is stating that Juan Pablo went to bed last evening and when checked on him again he was confused that prompted his visit in the ER. He was hypoglycemic he received intramuscular glucagon by the EMS. Blood sugar is 144, patient is able to tell me his name and date of and able to tell us that he got a stent a week ago but he is not sure why he is in the hospital. is requesting if bruises critical needs more attention we should consider transfer to [facility] As per the , he was taken off Eliquis & put on Jardiance which he has not taken in last 2 to 3 days. He does develop signs of congestive heart failure since endocarditis Review of Systems 2 Const: Denies: fever(s) Eyes: Denies: change in vision ENMT: Denies: throat pain Card: Reports: swelling of feet/ankles; Denies: chest pain Resp: Reports: dyspnea Medications/Allergies Home Medications Medication Instructions Recorded Confirmed Last Taken Type alprazolam 0.5 mg tablet (Xanax) 1 mg PO BID 03/06/20 09/25/23 Unknown History bupropion HCl 150 mg 24 hr tablet, 150 mg PO BID 03/06/20 09/25/23 Unknown History extended release (Wellbutrin XL) glipizide 10 mg tablet 10 mg PO BID 03/06/20 09/25/23 Unknown History ibuprofen 800 mg tablet 800 mg PO BID 03/06/20 09/25/23 Unknown History methocarbamol 750 mg tablet 750 mg PO BID 03/06/20 09/25/23 Unknown History ondansetron HCl 4 mg tablet 4 mg PO Q6H PRN nausea and 03/06/20 09/25/23 Unknown Rx (Zofran) vomiting #20 tabs trazodone 50 mg tablet 100 mg PO ONCE 03/06/20 09/25/23 Unknown History ondansetron 4 mg disintegrating 4 mg PO Q8H PRN nausea and 05/13/22 09/25/23 Unknown Rx tablet vomiting #10 tabs Allergies Allergy/AdvReac Type Severity Reaction Status Date / Time metformin Allergy Unknown Verified 09/25/23 09:15 PFSH Acute 2 PFSH: Medical History (Updated 06/23/24 @ 02:16 by Kaveh Hatch MD) Endocarditis Coronary artery disease New onset of congestive heart failure Status post transesophageal echocardiogram (HANG) Endocarditis A-fib DM type 2 (diabetes mellitus, type 2) Anxiety Social History Alcohol intake: never Substance/Drug Use: never Vitals/I&O/Wt Last Vital Signs Temp 96.6 F L 06/22/24 23:51 Pulse 55 L 06/23/24 02:05 Resp 25 H 06/23/24 02:05 BP 122/57 06/23/24 02:05 Pulse Ox 91 06/23/24 02:05 06/22/24 06/22/24 06/23/24 14:59 22:59 06:59 Intake Total 250 / 250 Balance 250 / 250 Weight last 48 hrs Weight 113.398 kg Physical Exam 2 Narrative: Patient is awake able to answer my questions, able to tell me his name, date of he is not sure why he was sent to the hospital I did not appreciate any focal deficits Clinically looks fluid overloaded with 3+ edema of legs Abdomen nontender distended Umbilical hernia He is able to follow commands without any difficulty S1, S2 variable Pupils are symmetrical Urinary Catheter Management: Torres: Cath Placed During This Visit: yes Urinary Catheter Date of Insertion: 06/22/24 Urinary Catheter Time of Insertion: 23:55 Data 06/23/24 01:00 06/23/24 01:00 A&P Assessment and plan (1) A-fib: (2) DM type 2 (diabetes mellitus, type 2): Qualifiers: Diabetes mellitus terminal press 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 insulin use: with terminal press operator use (3) Hyperkalemia: (4) Metabolic acidosis: (5) Acute on chronic anemia: (6) Diabetic peripheral neuropathy associated with type 2 diabetes mellitus: (7) Hypoglycemia: (8) Metabolic encephalopathy: (9) Hyperkalemia: (10) CHF exacerbation: Plan Hypoglycemia Secondary to worsening kidney function he should not be taking any antihyperglycemic agent at this point We will do Accu-Cheks every 4 hours Consistent carb diet Hypothermia: Started Melba bedoya in the ER Coronary artery established disease recent stent at [facility] a week ago, will request records As per the family there is 70% blockage in another vessel stent was not placed because of his chronic kidney disease, he needs a staged procedure Chronic kidney disease: Anemia of chronic disease Patient has been taken off Eliquis after getting 2 unit PRBC on last admission Hyperkalemia: Given hyperkalemia cocktail in the ER EKG unremarkable Metabolic encephalopathy related to hypoglycemia: Gradually improving History of endocarditis after dental infection status posttreatment History of GI bleed with underlying anemia of chronic disease: Status post 2 unit PRBC in the past taken off Eliquis A-fib without RVR Considering recent stent placement I will continue him on aspirin and Plavix along statins Holding off on Eliquis Full code Hemoglobin seems to be stable at this point continue heparin as DVT prophylaxis Consistent carb diet Request PT Attestations 2 Medical Necessity Statement*: Once hypoglycemia proves he may be able to go home within 48 hours Diagnoses A-fib I48.91 DM type 2 (diabetes mellitus, type 2) E11.9 Diabetes mellitus terminal press operator insulin use: with terminal press operator use Hyperkalemia E87.5 Metabolic acidosis E87.20 Acute on chronic anemia D64.9 Diabetic peripheral neuropathy associated with type 2 diabetes mellitus E11.42 Hypoglycemia E16.2 Metabolic encephalopathy G93.41 CHF exacerbation I50.9
[2024-06-23] MEDS: calcium gluconate 0.1 gm/mL 10% SDV 10mL 1 GM IVP (02:16)
[2024-06-23] MEDS: sodium bicarbonate 8.4% 1 mEq/mL 50mL Syr 100 MEQ IVP (02:22)
[2024-06-23] MEDS: albuterol 2.5 mg/3 mL Neb INHALATION (02:44)
[2024-06-23 03:47] LABS: Glucose Point of Care 57 mg/dL (70-110)
[2024-06-23 04:13] LABS: Glucose Point of Care 59 mg/dL (70-110)
[2024-06-23] MEDS: dextrose 10% 125 ML 750 ML IV ×2 (04:19→05:24)
[2024-06-23] MEDS: heparin 5,000 unit/mL INJ 1 mL 5000 UNIT SUBCUT ×2 (04:25→14:25)
[2024-06-23] MEDS: FUROsemide 10 mg/mL SDV 10mL 40 MG IVP ×2 (04:25→14:26)
[2024-06-23 05:22] LABS: Glucose Point of Care 76 mg/dL (70-110)
--- NOTE | 2024-06-23 05:24 | PC.NURSE ---
Blood Sugar Patient blood sugar 76 following apple juice and D10 administration. Patient does not wish to drink more juice at this time. IV D10 125mL administered at this time.
[2024-06-23 06:26] LABS: Glucose Point of Care 90 mg/dL (70-110)
[2024-06-23] MEDS: pantoprazole 40 mg SDV IVP ×2 (08:01→17:12)
[2024-06-23] MEDS: aspirin 81 mg EC Tablet PO (08:01)
[2024-06-23] MEDS: atorvastatin 40 mg Tablet 80 MG PO (08:01)
[2024-06-23] MEDS: clopidogrel 75 mg Tablet PO (08:01)
[2024-06-23] MEDS: sennosides-docusate Tablet 2 TAB PO ×2 (08:01→17:12)
--- NOTE | 2024-06-23 08:43 | PC.PHAR ---
patients takes care of all meds, called and spoke to her to get med list. the only things to note is doc took him off eliquis and he is also supposed to be on jardiance but said the side effects were not worth the risk for his kidneys so she wants to take to primary care of pharmacist before going forward.
[2024-06-23 10:15] LABS: Glucose Point of Care 34 mg/dL (70-110)
--- NOTE | 2024-06-23 10:16 | PC.NURSE ---
Addendum entered by Joanne Ramirez LPN 06/23/24 12:44: After consuming 8oz of juice and a carton of chocolate milk, patients blood sugar came to 67. Dr. Vick notified an verbal orders were given to administer PRN IM glucagon. 30mins after IM injection, BS was obtained and is now at 93. Original Note: This nurse was notified by RT Andres that pt was less alert. This nurse asked VANNESA Zaman to obtain blood sugar. Blood sugar is currently 34. Pt verbalized that he is able to drink juice. Pt drinking 8oz of orange juice. VANNESA Zaman will recheck blood sugar in 30minutes. Care ongoing.
[2024-06-23 10:51] LABS: Glucose Point of Care 60 mg/dL (70-110)
[2024-06-23 11:28] LABS: Glucose Point of Care 67 mg/dL (70-110)
[2024-06-23] MEDS: glucagon 1 mg/mL KIT 1 mL IM (11:47)
[2024-06-23 12:36] LABS: Glucose Point of Care 93 mg/dL (70-110)
[2024-06-23 12:47] LABS: Basophils % 0.6 %; Eosinophils % 0.6 %; Hematocrit 26.7 % (37-53); Lymphocytes % 13.6 %; Mean Corpuscular HGB Conc 30.7 g/dL (30-55); Mean Corpuscular Hemoglobin 26.8 pg (27-33); Mean Corpuscular Volume 87.3 fl (82-101); Mean Platelet Volume 11.3 fL (7.4-10.4); Monocytes # 0.5 10^3/uL (0.2-0.9); Monocytes % 7.3 %; Neutrophils # 5.51 10^3/uL (1.8-7.7); Neutrophils % 77.2 %; Nucleated Red Blood Cells % 0.3 %; Platelet Count 146 10^3/cmm (157-399); Red Blood Count 3.06 10^6/uL (3.85-5.65); Red Cell Distribution Width 17.9 % (12.1-15.1); White Blood Count 7.13 10^3/uL (3.29-11.43)
[2024-06-23 13:06] LABS: Calcium 9.2 mg/dL (8.5-10.5); Carbon Dioxide 17 mmol/L (22-29); Chloride 99 mmol/L (98-107); Creatinine Clr Calc Pharmacy 30.2678; Glomerular Filtration Rate 20.9 mL/min (90-130); Glucose 80 mg/dL (65-115); Magnesium 2.2 mg/dL (1.7-2.3); Osmolality Calculated 304 mOsm/kg (285-295); Phosphorus 5.7 mg/dL (2.5-4.5); Sodium 132 mmol/L (136-145)
[2024-06-23 13:15] LABS: Blood Urea Nitrogen 99 mg/dL (8-23)
[2024-06-23 13:31] LABS: Estmated Average Glucose 105; Hemoglobin A1C 5.3 % (4.0-6.0)
[2024-06-23] MEDS: dextrose 10% 1,000 ML 30 ML IV (14:26)
--- NOTE | 2024-06-23 14:40 | P.MISC_ITS ---
Miscellaneous Note Purpose of Documentation: Overnight labs and H&P reviewed. Patient was continued to be hypoglycemic during course of this morning. Blood sugar at 10 AM today dropped to 34, he received glucagon, Arleth juice improved to 60. Thereafter again dropped to 67. After lunch it is at 93. Patient is lethargic during episodes of hypoglycemia. Creatinine was at 2.4 on June 14, 2024 however has slowly been creeping up. Currently at 3.0. Worsening of his baseline CKD is thought to be related to rec ent angiogram with contrast. Patient has been taking glipizide 10 mg twice daily at home with last dose taken yesterday. Highly likely that with change in renal function glipizide has not been adequately excluded. High chance of patient having recurrent hypoglycemia as a result of this. Will start him on D10 30 cc an hour. Patient's HbA1c is at 5.3. Will discontinue OHA's at discharge. Continue Lasix 40 mg IV every 12 hours. Hemoglobin stable at 8.2 improved from 6.9 on 06/10/2024
[2024-06-23 16:47] LABS: Glucose Point of Care 114 mg/dL (70-110)
[2024-06-23 21:08] LABS: Glucose Point of Care 72 mg/dL (70-110)
[2024-06-23 23:37] LABS: Glucose Point of Care 101 mg/dL (70-110)
[2024-06-24] MEDS: acetaminophen 500 mg Tablet PO ×2 (00:10→16:59)
[2024-06-24] MEDS: ondansetron 2 mg/ML SDV 2 mL 4 MG IVP (00:15)
[2024-06-24 01:27] LABS: Glucose Point of Care 102 mg/dL (70-110)
[2024-06-24] MEDS: heparin 5,000 unit/mL INJ 1 mL 5000 UNIT SUBCUT ×2 (03:02→14:50)
[2024-06-24] MEDS: FUROsemide 10 mg/mL SDV 10mL 40 MG IVP ×2 (03:02→14:49)
[2024-06-24 03:52] VITALS: BP 125/53; PULSE 75; RESP 16; TEMP 36.7; O2SAT 92
[2024-06-24 06:29] LABS: Glucose Point of Care 120 mg/dL (70-110)
[2024-06-24 07:44] VITALS: BP 114/60; PULSE 80; RESP 16; TEMP 36.6; O2SAT 93
[2024-06-24] MEDS: pantoprazole 40 mg SDV IVP ×2 (07:54→16:56)
[2024-06-24] MEDS: aspirin 81 mg EC Tablet PO (07:55)
[2024-06-24] MEDS: sennosides-docusate Tablet 2 TAB PO ×2 (07:55→16:56)
[2024-06-24] MEDS: atorvastatin 40 mg Tablet 80 MG PO (07:55)
[2024-06-24] MEDS: clopidogrel 75 mg Tablet PO (07:55)
[2024-06-24] MEDS: ALPRAZolam 0.5 mg Tablet 1 MG PO (08:22)
[2024-06-24 08:50] VITALS: PULSE 75; RESP 18; O2SAT 94
--- NOTE | 2024-06-24 10:14 | PC.CHAP ---
Pastoral Care Encounter/Spiritual Assessment Type of Contact [] Declined interface engineer visit [] Patient/Family/Request visit [] Outpatient visit [] Follow-up visit [] Physician referral [] Code/Alert [x] Routine visit [] Staff referral [] Actively dying [] Patient sleeping [] Family support [] [] Out of room [] Palliative care [] [] Receiving care in room [] Pre-surgical visit [] Trauma [] Long length of stay [] ICU visit [] Other: Relational/Emotional Strength [x] Patient feels connected with others/family/visitors/staff [] Distress [] Loneliness/isolation [] Abandonment Spirituality of Patient [x] Person of Anai [] Attends Taoism of their Anai [x] Believes in Prayer [] Reads Bible or Restoration materials [] There are Spiritual issues to be addressed Pasting Machine Operator Interventions [x] Prayer [] Active listening [x] Non-anxious presence [x] Spiritual/emotional support [] Crisis/trauma care [] Spiritual counseling [] Bereavement support [] Provided bereavement packet [] Provided Bible/devotional materials [] Provided toy/stuffed animal, coloring book to patient or family member [] Provided Communion [] Anointing/[place] [] Salvation [x] Completed spiritual assessment [] Other: Impact on Illness or Injury [] Angry [] Fearful [] Anxious [] Often cries [] Exhaustion [] Unable to work [] Unable to attend presybeterian [] Unable to walk/stand [] Unable to read [] Unable to drive [] Unable to eat/drink [] Unable to sleep [] Unable to be with family [] Patient intubated [] Other: Summary Time spent with patient 5 min
--- NOTE | 2024-06-24 10:23 | PC.NURSE ---
Per Dr. Patel, paused D10 and monitor blood glucose for the next 2 hours to see if it is stable without D10. Possible d/c tomorrow.
[2024-06-24 10:49] LABS: Glucose Point of Care 173 mg/dL (70-110)
[2024-06-24 11:39] VITALS: BP 137/69; PULSE 81; RESP 15; TEMP 36.7; O2SAT 97
[2024-06-24 12:50] LABS: Glucose Point of Care 165 mg/dL (70-110)
--- NOTE | 2024-06-24 13:53 | PM.PN ---
Subjective Subjective: Seen this morning. Patient on D10 drip earlier. I have talked with nursing staff to stop that.. Patient's blood sugars have been improving. Vitals/I&O/Wt Last Vital Signs Temp 98.0 F 06/24/24 11:39 Pulse 81 06/24/24 11:39 Resp 15 06/24/24 11:39 BP 137/69 06/24/24 11:39 Pulse Ox 97 06/24/24 11:39 O2 Del Method Room Air 06/24/24 11:39 06/23/24 06/24/24 06/24/24 22:59 06:59 14:59 Intake Total 920 / 2080 1078.5 / 1078.5 Output Total 1600 / 1600 2050 / 3650 3900 / 3900 Balance -1600 / -440 -1130 / -1570 -2821.5 / -2821.5 Weight last 48 hrs Weight 116.392 kg Weight 76.975 kg Weight 113.806 kg Weight 113.806 kg Weight 113.398 kg Physical Exam Narrative: General: Alert oriented x3, patient seen sitting up in chair beside the bed eating a cheeseburger. HEENT: Normocephalic, atraumatic, EOMI, breathing normally on room air. Cardio: Regular rate rhythm, normal S1-S2, Respiratory: Good bilateral air entry, no wheezes no rhonchi appreciated GI: Abdomen soft, nontender, nondistended, bowel sounds + Behavior: Appropriate and cooperative Extremities: No edema bilateral lower extremities. 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: with watermelon harvesting supervisor use (3) Hyperkalemia: (4) Metabolic acidosis: (5) Acute on chronic anemia: (6) Diabetic peripheral neuropathy associated with type 2 diabetes mellitus: (7) Hypoglycemia: (8) Metabolic encephalopathy: (9) Hyperkalemia: (10) CHF exacerbation: Plan Hypoglycemia Secondary to worsening kidney function he should not be taking any antihyperglycemic agent at this point We will do Accu-Cheks every 4 hours Consistent carb diet Hypothermia: Started Melba bedoya in the ER Coronary artery established disease recent stent at [facility] a week ago, will request records As per the family there is 70% blockage in another vessel stent was not placed because of his chronic kidney disease, he needs a staged procedure Chronic kidney disease: Anemia of chronic disease Patient has been taken off Eliquis after getting 2 unit PRBC on last admission Hyperkalemia: Given hyperkalemia cocktail in the ER EKG unremarkable Metabolic encephalopathy related to hypoglycemia: Gradually improving 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 Continue patient's oral diet. ? Monitor blood sugars off of antihyperglycemic's. ? Hemoglobin A1c 5.6. ? Plan to discharge home without any oral hypoglycemic agents. ? Patient is to follow-up with cardiac rehab as previously scheduled. ? With recent stent, continue aspirin, Plavix ? He is to follow-up with cardiology as an outpatient as previously scheduled. ? Patient no longer on Eliquis secondary to previous GI bleed. ? If patient's blood sugar remained stable for next 24 hours off of D10 he will be discharged home with . Patient and on board with the plan. Attestations Medical Necessity Statement*: Once hypoglycemia proves he may be able to go home within 48 hours Diagnoses A-fib I48.91 DM type 2 (diabetes mellitus, type 2) E11.9 Diabetes mellitus watermelon harvesting supervisor insulin use: with watermelon harvesting supervisor use Hyperkalemia E87.5 Metabolic acidosis E87.20 Acute on chronic anemia D64.9 Diabetic peripheral neuropathy associated with type 2 diabetes mellitus E11.42 Hypoglycemia E16.2 Metabolic encephalopathy G93.41 CHF exacerbation I50.9
[2024-06-24 15:17] VITALS: BP 121/68; PULSE 84; RESP 16; TEMP 36.6; O2SAT 95
[2024-06-24 17:38] LABS: Glucose Point of Care 207 mg/dL (70-110)
[2024-06-24 19:51] VITALS: BP 133/72; PULSE 83; RESP 16; TEMP 36.4; O2SAT 95
[2024-06-24] MEDS: ALPRAZolam 0.5 mg Tablet PO (20:12)
[2024-06-24 20:23] LABS: Glucose Point of Care 338 mg/dL (70-110)
[2024-06-25] VITALS (7 sets, daily range): BP systolic 122–136; BP diastolic 53–71; PULSE 83–95; RESP 14–18; TEMP 36.3–36.8; O2SAT 91–99; BMI 33.2
[2024-06-25] MEDS: FUROsemide 10 mg/mL SDV 10mL 40 MG IVP (04:24)
[2024-06-25] MEDS: heparin 5,000 unit/mL INJ 1 mL 5000 UNIT SUBCUT ×2 (04:24→14:48)
--- NOTE | 2024-06-25 04:31 | ECG_ITS ---
[facility] Test Date: 2024-06-25 Pat Name: Juan Pablo Cheney Department: Room: 254 Gender: Male Bi Architect: : 1955 Requested By: Stephon Galindo Order Number: [id number] Eugene MD: Jenna Ferraro M.D. Measurements Intervals [place] Rate: 96 P: 84 AR: 198 QRS: -37 QRSD: 128 T: 96 QT: 369 QTc: 467 Interpretive Statements SINUS RHYTHM LEFT AXIS DEVIATION [QRS AXIS < -30] MODERATE INTRAVENTRICULAR CONDUCTION DELAY [105+ ms QRS DURATION, 80+ ms Q/S IN V1/V2, NO Q AND 60+ ms R IN I/aVL/V5/V6] NONSPECIFIC ST & T-WAVE ABNORMALITY Compared to ECG 06/22/2024 23:46:21 Left-axis deviation now present T-wave abnormality now present First degree AV block no longer present Indeterminate axis no longer present Electronically Signed On 06-25-2024 21:16:58 INTAKE SPECIALIST by Jenna Ferraro M.D. [id number]
[2024-06-25 04:34] LABS: Glucose Point of Care 245 mg/dL (70-110)
[2024-06-25] MEDS: nitroglycerin 0.4 mg sublingual Tablet SUBLINGUAL (05:01)
[2024-06-25 06:13] LABS: Basophils % 0.5 %; Eosinophils # 0.3 10^3/uL (0.0-0.8); Eosinophils % 5.4 %; Hematocrit 24.9 % (37-53); Lymphocytes # 1.2 10^3/uL (0.8-4.8); Mean Corpuscular HGB Conc 30.5 g/dL (30-55); Mean Corpuscular Hemoglobin 25.6 pg (27-33); Mean Corpuscular Volume 83.8 fl (82-101); Mean Platelet Volume 9.8 fL (7.4-10.4); Monocytes # 0.5 10^3/uL (0.2-0.9); Monocytes % 9.3 %; Neutrophils # 3.54 10^3/uL (1.8-7.7); Neutrophils % 63.4 %; Nucleated Red Blood Cells % 0 %; Platelet Count 144 10^3/cmm (157-399); Red Blood Count 2.97 10^6/uL (3.85-5.65); Red Cell Distribution Width 17.2 % (12.1-15.1); White Blood Count 5.58 10^3/uL (3.29-11.43)
--- NOTE | 2024-06-25 06:32 | PC.NURSE ---
At 0425 this nurse was administering lasix as ordered when the patient stated he was having pain radiating from both sides of his jaw, down his neck, into his chest, and down his right arm. He stated This feels exactly the way it did when I had a heart attack before. Vitals were taken at 0400 and at that time his BP was 130/53. HR 89, RR 14, and saturating 93% on room air. At the time of his complaint, he was breathing 22 times a minute while resting in bed calmly. The patient denied any nausea, palpitations, or impending doom. He did not appear diaphoretic or pale. He did request for staff to check his blood sugar, at this time his BG was 245. This nurse performed an EKG and contacted Dr. Galindo via [employer] messenger at [phone] to explain the situation and provide a picture of the EKG. Dr. Galindo ordered a troponin and EKG series as well as a one time dose of nitroglycerin 0.4mg sublingual, which this nurse administered at 0501 immediately after the telepharmacy service verified the order. At 0515 the patient stated this his pain and discomfort had resolved with the dose of nitroglycerin.
[2024-06-25 06:33] LABS: Troponin(5th) Baseline 50 ng/L (0-15)
[2024-06-25 06:36] LABS: Glucose Point of Care 188 mg/dL (70-110)
[2024-06-25 06:41] LABS: Blood Urea Nitrogen 78 mg/dL (8-23); Calcium 9.1 mg/dL (8.5-10.5); Carbon Dioxide 25 mmol/L (22-29); Chloride 102 mmol/L (98-107); Creatinine Clr Calc Pharmacy 47.2358; Glomerular Filtration Rate 35.3 mL/min (90-130); Glucose 179 mg/dL (65-115); Magnesium 2.1 mg/dL (1.7-2.3); Osmolality Calculated 318 mOsm/kg (285-295); Sodium 140 mmol/L (136-145)
--- NOTE | 2024-06-25 06:46 | PC.NURSE ---
Edited troponin series lab draw times to be accurate to 2 and 6 hours post baseline troponin draw.
--- NOTE | 2024-06-25 06:48 | ECG_ITS ---
[facility]: [facility]24-[facility]25 Pat Name: Juan Pablo Cheney Department: Room: 254 Gender: Male Manager [employer]: : 1955 Requested By: Stephon Galindo Order Number: [id number] Eugene MD: Jenna Ferraro M.D. Measurements Intervals [place] Rate: 91 P: 40 GA: 191 QRS: -39 QRSD: 123 T: 96 QT: 377 QTc: 465 Interpretive Statements SINUS RHYTHM LEFT AXIS DEVIATION [QRS AXIS < -30] MODERATE INTRAVENTRICULAR CONDUCTION DELAY [105+ ms QRS DURATION, 80+ ms Q/S IN V1/V2, NO Q AND 60+ ms R IN I/aVL/V5/V6] NONSPECIFIC ST & T-WAVE ABNORMALITY Compared to ECG 06/25/2024 04:36:40 No significant changes Electronically Signed On 06-25-2024 21:40:38 WELCOME HOSTESS by Jenna Ferraro M.D. [id number]
[2024-06-25] MEDS: atorvastatin 40 mg Tablet 80 MG PO (08:20)
[2024-06-25] MEDS: aspirin 81 mg EC Tablet PO (08:20)
[2024-06-25] MEDS: ALPRAZolam 0.5 mg Tablet 1 MG PO (08:21)
[2024-06-25] MEDS: sennosides-docusate Tablet 2 TAB PO ×2 (08:21→16:55)
[2024-06-25] MEDS: pantoprazole 40 mg SDV IVP ×2 (08:21→16:56)
[2024-06-25] MEDS: clopidogrel 75 mg Tablet PO (08:21)
[2024-06-25 10:11] LABS: Troponin 5 2HR 43.57 ng/L (0-15)
[2024-06-25 10:18] LABS: Troponin 5 2HR Delta -6.43 ABS# (0-10)
--- NOTE | 2024-06-25 10:28 | USCV_ITS ---
Juan Pablo Cheney Age: 68 Gender: M : 1955 Exam Date: 06/25/2024 13:04 Ordering Phys: Ammy Patel MD Technologist: Exam Location: [facility] [place] Indication: chest pain BP: 134 / 70 HR: 142 Rhythm: Sinus Technical Quality: Adequate MEASUREMENTS (Male / Female) Normal Values 2D ECHO LV Diastolic Diameter PLAX 6.0 cm 4.2 - 5.9 / 3.9 - 5.3 cm IVS Diastolic Thickness 1.2 cm 0.6 - 1.0 / 0.6 - 0.9 cm IVS Systolic Thickness 1.6 cm LVPW Diastolic Thickness 1.3 cm 0.6 - 1.0 / 0.6 - 0.9 cm LVPW Systolic Thickness 1.8 cm LVOT Diameter 2.0 cm LV Ejection Fraction 2D Teich 73.6 % LV Ejection Fraction MOD 4C 75.9 % LV Ejection Fraction MOD 2C 69.6 % LV Ejection Fraction 2C AL 71.0 % LA Diameter 4.7 cm RA Systolic Volume 4C AL 83.4 ml RA Systolic Volume 4C MOD 81.5 ml Aorta at Sinotubular Diameter 2.6 cm IVC Diameter 1.6 cm M-MODE LA Ao Ratio MM 1.3 AV Cusp Separation MM 1.6 cm DOPPLER AV Peak Velocity 299.0 cm/s LVOT Peak Velocity 101.0 cm/s AV Area Cont Eq vti 1.5 cm squared AV Area Cont Eq pk 1.1 cm squared MV Area PHT 6.3 cm squared Mitral E to A Ratio 1.6 TV Peak Velocity 380.0 cm/s TR Peak Velocity 399.0 cm/s TR Peak Gradient 63.7 mmHg TV Peak E Velocity 144.0 cm/s PV Peak Velocity 136.0 cm/s FINDINGS Left Ventricle Normal left ventricular size and systolic function, EF 71%. No regional wall motion abnormalities. Mild left ventricular hypertrophy. Right Ventricle The right ventricle is normal in size and function. Right Atrium Moderately increased right atrial size. Left Atrium Mildly increased left atrial size. Mitral Valve Thickened mitral valve. Moderately severe eccentric mitral regurgitation Aortic Valve Thickened aortic valve. Moderate aortic valve regurgitation. Tricuspid Valve Mild tricuspid valve regurgitation. Estimated pulmonary artery peak systolic pressure 67 mmHg Pulmonic Valve Mild pulmonary valve regurgitation. Pericardium No pericardial effusion. Aorta Normal ascending aorta dimension. IVC Normal inferior vena cava. CONCLUSIONS Normal left ventricular size and systolic function, EF 71%. No regional wall motion abnormalities. Mild left ventricular hypertrophy. Mildly increased left atrial size. Moderately increased right atrial size. Thickened mitral valve. Moderately severe eccentric mitral regurgitation. Thickened aortic valve. Moderate aortic valve regurgitation. Mild tricuspid valve regurgitation. Estimated pulmonary artery peak systolic pressure 67 mmHg There is no pericardial effusion. There are no intracardiac masses. No similar previous studies are available for comparison Dr Jenna Ferraro MD [facility] (Electronically Signed) Final Date: 25 June 2024 21:54 S
--- NOTE | 2024-06-25 10:51 | ECG_ITS ---
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 Measurements Intervals [place] Rate: 90 P: 34 CT: 190 QRS: -28 QRSD: 126 T: 97 QT: 390 QTc: 479 Interpretive Statements SINUS RHYTHM MODERATE INTRAVENTRICULAR CONDUCTION DELAY [105+ ms QRS DURATION, 80+ ms Q/S IN V1/V2, NO Q AND 60+ ms R IN I/aVL/V5/V6] NONSPECIFIC ST & T-WAVE ABNORMALITY Compared to ECG 06/25/2024 06:48:14 Left-axis deviation no longer present T-wave abnormality still present Electronically Signed On 06-25-2024 21:40:41 STAFF REPORTER by Jenna Ferraro M.D. [id number]
[2024-06-25 10:56] LABS: Glucose Point of Care 237 mg/dL (70-110)
[2024-06-25] MEDS: amiodarone 200 mg Tablet PO (13:52)
--- NOTE | 2024-06-25 14:31 | P.PN_ITS ---
Subjective 2 Subjective: chest pain overnight, awaiting 6 hour trops cr 1.9 this am hb 7.6 this am Vitals/I&O/Wt Last Vital Signs Temp 98.0 F 06/25/24 11:40 Pulse 87 06/25/24 11:40 Resp 16 06/25/24 11:40 BP 122/66 06/25/24 11:40 Pulse Ox 94 06/25/24 11:40 O2 Del Method Room Air 06/25/24 11:40 06/24/24 06/25/24 06/25/24 22:59 06:59 14:59 Intake Total 480 / 1558.5 480 / 2038.5 480 / 480 Output Total 3250 / 7150 2100 / 9250 1300 / 1300 Balance -2770 / -5591.5 -1620 / -7211.5 -820 / -820 Weight last 48 hrs Weight 111.13 kg Weight 116.392 kg Weight 76.975 kg Physical Exam 2 Narrative: General: Alert oriented x3, NAD, at bedside HEENT: Normocephalic, atraumatic, EOMI, breathing normally on room air. Cardio: Regular rate rhythm, normal S1-S2, Respiratory: Good bilateral air entry, no wheezes no rhonchi appreciated GI: Abdomen soft, nontender, nondistended, bowel sounds + Behavior: Appropriate and cooperative Extremities: No edema bilateral lower extremities. Urinary Catheter Management: Torres: Cath Placed During This Visit: yes, but has since been removed by the nurse Reason for Continuing Indwelling Catheter: Decision to DC Catheter Urinary Catheter Date of Insertion: 06/22/24 Urinary Catheter Time of Insertion: 23:55 Date Urinary Catheter Removed: 06/25/24 Time Urinary Catheter Discontinued: 11:20 Data 06/25/24 14:10 06/25/24 06:02 A&P Assessment and plan (1) A-fib: (2) DM type 2 (diabetes mellitus, type 2): Qualifiers: Diabetes mellitus top and trim worker insulin use: with detention use (3) Hyperkalemia: (4) Metabolic acidosis: (5) Acute on chronic anemia: (6) Diabetic peripheral neuropathy associated with type 2 diabetes mellitus: (7) Hypoglycemia: (8) Metabolic encephalopathy: (9) Hyperkalemia: (10) CHF exacerbation: Plan Hypoglycemia Secondary to worsening kidney function he should not be taking any antihyperglycemic agent at this point We will do Accu-Cheks every 4 hours Consistent carb diet Hypothermia: Started Melba bedoya in the ER Coronary artery established disease recent stent at [facility] a week ago, will request records As per the family there is 70% blockage in another vessel stent was not placed because of his chronic kidney disease, he needs a staged procedure Chronic kidney disease: Anemia of chronic disease Patient has been taken off Eliquis after getting 2 unit PRBC on last admission Hyperkalemia: Given hyperkalemia cocktail in the ER EKG unremarkable Metabolic encephalopathy related to hypoglycemia: Gradually improving 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 Continue patient's oral diet. ? Monitor blood sugars off of antihyperglycemic's. ? Hemoglobin A1c 5.6. ? Plan to discharge home without any oral hypoglycemic agents. ? Patient is to follow-up with cardiac rehab as previously scheduled. ? With recent stent, continue aspirin, Plavix ? He is to follow-up with cardiology as an outpatient as previously scheduled. ? Patient no longer on Eliquis secondary to previous GI bleed. ? If patient's blood sugar remained stable for next 24 hours off of D10 he will be discharged home with . Patient and on board with the plan. 06/25/2024 -Continue to monitor patient without oral hypoglycemic agents. ? Patient to follow-up with cardiac rehab as previously scheduled ? Continue aspirin Plavix. ? Hemoglobin 7.6 this morning. Will order 1 unit packed RBC to keep hemoglobin above 10. I will repeat CBC however before ordering blood. ? Continue diuresis at this time. ? Patient no longer on Eliquis secondary to previous GI bleed ? Patient did develop chest pain overnight. Him and his report that he has a known obstruction in one of the vessels possibly LAD for which he is to have a staged procedure for PCI at a later time. That was deferred due to worsening CKD. They are waiting for nephrology appointment as an outpatient. - get records from [facility] - check echo - await 6 hour trop - Nephro and cardio consult. Attestations 2 Medical Necessity Statement*: needs cardiology, nephrology consultation, having chest pain with known recent cardiac cath Diagnoses A-fib I48.91 DM type 2 (diabetes mellitus, type 2) E11.9 Diabetes mellitus top and trim worker insulin use: with detention use Hyperkalemia E87.5 Metabolic acidosis E87.20 Acute on chronic anemia D64.9 Diabetic peripheral neuropathy associated with type 2 diabetes mellitus E11.42 Hypoglycemia E16.2 Metabolic encephalopathy G93.41 CHF exacerbation I50.9
[2024-06-25 14:43] LABS: Basophils # 0.1 10^3/uL (0.0-0.1); Basophils % 0.9 %; Eosinophils # 0.2 10^3/uL (0.0-0.8); Eosinophils % 4.3 %; Hematocrit 27.1 % (37-53); Lymphocytes % 18.3 %; Mean Corpuscular HGB Conc 29.9 g/dL (30-55); Mean Corpuscular Hemoglobin 25.8 pg (27-33); Mean Corpuscular Volume 86.3 fl (82-101); Mean Platelet Volume 10.2 fL (7.4-10.4); Monocytes # 0.5 10^3/uL (0.2-0.9); Monocytes % 9.2 %; Neutrophils # 3.69 10^3/uL (1.8-7.7); Neutrophils % 66.8 %; Nucleated Red Blood Cells % 0 %; Platelet Count 146 10^3/cmm (157-399); Red Blood Count 3.14 10^6/uL (3.85-5.65); Red Cell Distribution Width 17.2 % (12.1-15.1); White Blood Count 5.53 10^3/uL (3.29-11.43)
[2024-06-25] MEDS: isosorbide mononitrate ER 30 mg Tablet PO (14:48)
[2024-06-25 15:00] LABS: Troponin 5 6HR 37.25 ng/L (0-15)
[2024-06-25 15:02] LABS: Troponin 5 6HR Delta -12.75 ng/L (0-12)
[2024-06-25 16:34] LABS: Glucose Point of Care 198 mg/dL (70-110)
[2024-06-25] MEDS: trazodone 50 mg Tablet PO (16:55)
--- NOTE | 2024-06-25 19:48 | PM.CONSULT ---
Providers/Reason For Consult Consulting Physician/Specialty*: LORENA Ferraro MD/cardiology Reason for Consult*: Patient with a chest pain and recent PCI Requesting Physician: Dr. Patel Attending Physician: Ammy Patel MD Primary Care Provider: Aura Camilo DO History of Present Illness History of Present Illness Juan Pablo Cheney is a 68 year old male The patient is a 68-year-old male admitted to the hospital with syncopal events and chest pain. The syncopal episode occurred at home when his blood sugar dropped to 36 mg/dL, leading to a loss of consciousness. Patient attributes his syncopal episode to the his Diabetes Mellitus, which he has had for over 10 years. He has experienced syncope once before, attributed to orthostatic hypotension?. Apparently he was alone at home when this happened. As his came home and woke him up, he was complaining of pain in the chest which was radiating to the neck, both sides of the jaw, both arms. The intensity of the pain was moderate. This may last for several minutes and then gradually subsided. Since the hospital admission, he had 2 more episodes of similar chest pains. Both times, it responded to 1 sublingual nitro. At the time of my examination, patient is pain-free. He did not have any chest pain today. He had a recent categorization at the [facility] for an abnormal Myocardial perfusion imaging. He was found to have total occlusion of the proximal to mid LAD and a high-grade lesion in the mid circumflex artery. He had a PCI of the MIXOLOGIST. The plan was to do a staged intervention for the circumflex lesion. Patient also is known to have chronic kidney disease and is being followed by a ammunition assembly i laborer. The staged intervention was recommended because of his kidney problem. According the patient, he had a prolonged course of antibiotic a few months ago at the [facility]. He was treated with IV antibiotic for 6 weeks or so. According him, he developed kidney problems since then. He has a history of hypertension, diabetes and dyslipidemia. He also is being treated for stage IV cancer of the prostate at the [facility] in [place]. The patient also has a significant family history of premature cardiovascular disease, with both parents having of heart attacks. His father of myocardial infarction at age of 54 and mother at the age of 49. His past medical history is complicated by stage 4 prostate cancer under active treatment, hypertension, and hyperlipidemia. He reports no history of smoking or alcohol use. The patient was seen in the emergency room on 06/10/2024 with complaints of neck pain and arm pain. Subsequently was transferred to the [facility] where he underwent stress test followed by cardiac catheterization and PCI. Prior to this admission, he was in the same hospital with features of congestive heart failure, kidney failure and possible endocarditis. He also was found to be anemic requiring blood transfusion. Review of Systems Narrative: CONSTITUTIONAL: No fever or chills. EYES: No blurring of vision or other visual disturbances lately. ENT: No hoarseness of voice, auditory disturbances or sore throat. CARDIOVASCULAR: As mentioned above. RESPIRATORY: No significant cough. GASTROINTESTINAL: No hematemesis or melena. GENITOURINARY: History of chronic kidney disease INTEGUMENTARY: No skin rashes or history of skin cancer. NEURO: No transient ischemic attacks or amaurosis. PSYCHIATRIC: No history of psychosis or major depression. HEMATOLOGIC: No bleeding disorders or significant anemia. ENDOCRINE: Type 2 diabetes as mentioned above MUSCULOSKELETAL: No recent joint pain or swelling. ALLERGY/IMMUNOLOGY: As mentioned above. Medications/Allergies Home Medications Medication Instructions Recorded Confirmed Last Taken Type alprazolam 0.5 mg tablet (Xanax) 1 mg PO BID 03/06/20 06/23/24 Unknown History amiodarone 200 mg tablet 200 mg PO DAILY 06/23/24 06/23/24 Unknown History amlodipine 10 mg tablet 10 mg PO DAILY 06/23/24 06/23/24 Unknown History aspirin 81 mg tablet,delayed 81 mg PO DAILY 06/23/24 06/23/24 Unknown History release bumetanide 2 mg tablet 2 mg PO DAILY 06/23/24 06/23/24 Unknown History bupropion HCl 150 mg tablet,12 hr 150 mg PO BID 06/23/24 06/23/24 Unknown History sustained-release clopidogrel 75 mg tablet 75 mg PO DAILY 06/23/24 06/23/24 Unknown History duloxetine 60 mg capsule,delayed 60 mg PO DAILY 06/23/24 06/23/24 Unknown History release methocarbamol 750 mg tablet 750 mg PO TID 06/23/24 06/23/24 Unknown History omeprazole 40 mg capsule,delayed 40 mg PO BID 06/23/24 06/23/24 Unknown History release trazodone 50 mg tablet 50 mg PO BID 06/23/24 06/23/24 Unknown History isosorbide mononitrate 30 mg 30 mg PO DAILY #30 tabs 06/26/24 Unknown Rx tablet,extended release 24 hr metoprolol succinate 25 mg 25 mg PO DAILY #30 tabs 06/26/24 Unknown Rx tablet,extended release 24 hr (Toprol XL) potassium chloride 10 mEq 10 meq PO DAILY #30 caps 06/26/24 Unknown Rx capsule,extended release Allergies Allergy/AdvReac Type Severity Reaction Status Date / Time metformin Allergy Unknown Verified 09/25/23 09:15 Current Medications Generic Name Dose Route Start Last Admin Trade Name Freq PRN Reason Stop Dose Admin Acetaminophen 500 mg 06/23/24 03:30 06/24/24 16:59 Acetaminophen 500 Mg Tablet PO 500 mg Q4H PRN Administration fever Alprazolam 1 mg 06/24/24 09:00 06/25/24 08:21 Alprazolam 0.5 Mg Tablet PO 1 mg DAILY PRABHJOT Administration Alprazolam 0.5 mg 06/24/24 21:00 06/24/24 20:12 Alprazolam 0.5 Mg Tablet PO 0.5 mg BEDTIME PRABHJOT Administration Amiodarone HCl 200 mg 06/25/24 12:25 06/25/24 13:52 Amiodarone 200 Mg Tablet PO 200 mg DAILY PRABHJOT Administration Aspirin 81 mg 06/23/24 09:00 06/25/24 08:20 Aspirin 81 Mg Ec Tablet PO 81 mg DAILY PRABHJOT Administration Atorvastatin Calcium 80 mg 06/23/24 09:00 06/25/24 08:20 Atorvastatin 40 Mg Tablet PO 80 mg DAILY PRABHJOT Administration Clopidogrel Bisulfate 75 mg 06/23/24 09:00 06/25/24 08:21 Clopidogrel 75 Mg Tablet PO 75 mg DAILY PRABHJOT Administration Furosemide 40 mg 06/25/24 12:30 06/25/24 12:32 Furosemide 10 Mg/Ml Sdv 4ml IVP Not Given Q12H [facility] Heparin Sodium (Porcine) 5,000 unit 06/23/24 03:30 06/25/24 14:48 Heparin 5,000 Unit/Ml Inj 1 Ml SUBCUT 5,000 unit Q12H PRABHJOT Administration Dextrose 250 mls @ 1,000 mls/hr 06/22/24 23:49 06/23/24 00:16 D10w IV Infused PRN PRN Infusion HYPOGLYCEMIA Isosorbide Mononitrate 30 mg 06/25/24 14:35 06/25/24 14:48 Isosorbide Mononitrate Er 30 Mg Tablet PO 30 mg DAILY PRABHJOT Administration Ondansetron HCl 4 mg 06/23/24 03:30 06/24/24 00:15 Ondansetron 2 Mg/Ml Sdv 2 Ml IVP 4 mg Q6H PRN Administration NAUSEA AND VOMITING Pantoprazole Sodium 40 mg 06/23/24 09:00 06/25/24 16:56 Pantoprazole 40 Mg Sdv IVP 40 mg BID PRABHJOT Administration Senna/Docusate Sodium 2 tab 06/23/24 09:00 06/25/24 16:55 Sennosides-Docusate Tablet PO 2 tab BID PRABHOJT Administration Trazodone HCl 50 mg 06/25/24 18:00 06/25/24 16:55 Trazodone 50 Mg Tablet PO 50 mg BID PRABHJOT Administration PFSH Acute PFSH: Medical History (Updated 06/25/24 @ 21:07 by Jenna Ferraro MD) Endocarditis Coronary artery disease New onset of congestive heart failure Status post transesophageal echocardiogram (HANG) Endocarditis A-fib DM type 2 (diabetes mellitus, type 2) Anxiety Social History Alcohol intake: never Substance/Drug Use: never Vitals/I&O/Wt Last Vital Signs Temp 97.6 F 06/25/24 15:14 Pulse 83 06/25/24 15:14 Resp 15 06/25/24 15:14 BP 132/64 06/25/24 15:14 Pulse Ox 99 06/25/24 15:14 O2 Del Method Room Air 06/25/24 15:14 06/25/24 06/25/24 06/25/24 06:59 14:59 22:59 Intake Total 480 / 2038.5 480 / 480 120 / 600 Output Total 2100 / 9250 1300 / 1300 Balance -1620 / -7211.5 -820 / -820 120 / -700 Weight last 48 hrs Weight 245 lb Weight 256 lb 9.6 oz Weight 169 lb 11.2 oz Physical Exam Narrative: GENERAL: The patient is alert and oriented times three. Not in any acute distress. HEENT: No significant pallor, icterus or lymphadenopathy.Oral cavity: There are no mucous membrane lesions. NECK: Trachea appears to be central. No masses noted. No JVD or thyromegaly appreciated. RESPIRATORY: Chest is symmetrical. No intercostals muscle retraction or any accessory muscle activation. There is no chest wall tenderness. Breath sounds are heard bilaterally. No rales or rhonchi heard. No evidence of any consolidation. BREASTS: Deferred. HEART: The heart sounds are normal. No S3 or S4. No significant murmurs. No pericardial rub ABDOMEN: No vessel pulsations or distention. No tenderness. No organomegaly appreciated. Bowel sounds are normally heard. : Deferred. RECTAL: Deferred. LYMPHATIC: No lymphadenopathy noted in the neck. EXTREMITIES: 1-2+ edema both lower extremities. MUSCULOSKELETAL: No acute joint deformities or swelling SKIN: There are no significant rashes or ecchymosis NEUROPSYCHIATRIC: The patient is alert and oriented x3. Appears to be in a good mood. No tremors or rigidity noted. Urinary Catheter Management: Torres: Cath Placed During This Visit: yes, but has since been removed by the nurse Reason for Continuing Indwelling Catheter: Decision to DC Catheter Urinary Catheter Date of Insertion: 06/22/24 Urinary Catheter Time of Insertion: 23:55 Date Urinary Catheter Removed: 06/25/24 Time Urinary Catheter Discontinued: 11:20 Data 06/25/24 14:10 06/25/24 06:02 Other Labs: Laboratory Last Values WBC 5.53 10^3/uL (3.29-11.43) 06/25/24 14:10 RBC 3.14 10^6/uL (3.85-5.65) L 06/25/24 14:10 Hgb 8.10 g/dL (11.27-16.99) L 06/25/24 14:10 Hct 27.1 % (37-53) L 06/25/24 14:10 MCV 86.3 fl (82-101) 06/25/24 14:10 MCH 25.8 pg (27-33) L 06/25/24 14:10 MCHC 29.9 g/dL (30-55) L 06/25/24 14:10 RDW 17.2 % (12.1-15.1) H 06/25/24 14:10 Plt Count 146 10^3/cmm (157-399) L 06/25/24 14:10 MPV 10.2 fL (7.4-10.4) 06/25/24 14:10 Neut % (Auto) 66.8 % 06/25/24 14:10 Lymph % (Auto) 18.3 % 06/25/24 14:10 Leon % (Auto) 9.2 % 06/25/24 14:10 Eos % (Auto) 4.3 % 06/25/24 14:10 Baso % (Auto) 0.9 % 06/25/24 14:10 Neut # (Auto) 3.69 10^3/uL (1.8-7.7) 06/25/24 14:10 Lymph # (Auto) 1.0 10^3/uL (0.8-4.8) 06/25/24 14:10 Leon # (Auto) 0.5 10^3/uL (0.2-0.9) 06/25/24 14:10 Eos # (Auto) 0.2 10^3/uL (0.0-0.8) 06/25/24 14:10 Baso # (Auto) 0.1 10^3/uL (0.0-0.1) 06/25/24 14:10 Nucleated RBC % (auto) 0 % 06/25/24 14:10 Nucleated RBCs # 0.0 /100WBC 06/25/24 14:10 Sodium 140 mmol/L (136-145) 06/25/24 06:02 Potassium 4.0 mmol/L (3.5-5.1) 06/25/24 06:02 Chloride 102 mmol/L (98-107) 06/25/24 06:02 Carbon Dioxide 25 mmol/L (22-29) 06/25/24 06:02 Anion Gap 17.0 (5-19) 06/25/24 06:02 BUN 78 mg/dL (8-23) H 06/25/24 06:02 Creatinine 1.9 mg/dL (0.7-1.2) H 06/25/24 06:02 GFR Calculation 35.3 mL/min (90-130) L 06/25/24 06:02 Glucose 179 mg/dL (65-115) H 06/25/24 06:02 POC Glucose 239 mg/dL (70-110) H 06/25/24 20:36 Estimat Average Glucose 105 06/23/24 12:33 Hemoglobin A1c 5.3 % (4.0-6.0) 06/23/24 12:33 Calculated Osmolality 318 mOsm/kg (285-295) H 06/25/24 06:02 Lactic Acid 1.6 mmol/L (0.5-2.2) 06/23/24 01:00 Calcium 9.1 mg/dL (8.5-10.5) 06/25/24 06:02 Phosphorus 5.7 mg/dL (2.5-4.5) H 06/23/24 12:33 Magnesium 2.1 mg/dL (1.7-2.3) 06/25/24 06:02 Total Bilirubin 0.4 mg/dL (0.15-1.2) 06/23/24 01:00 AST 18 U/L (0-40) 06/23/24 01:00 ALT 8 U/L (0-41) 06/23/24 01:00 Alkaline Phosphatase 84 U/L (40-130) 06/23/24 01:00 Troponin T Baseline 50 ng/L (0-15) H 06/25/24 06:02 Troponin T 120 Minute 43.57 ng/L (0-15) H 06/25/24 09:35 Delta Troponin T -6.43 ABS# (0-10) L 06/25/24 09:35 Troponin T Hi Sens 6Hr 37.25 ng/L (0-15) H 06/25/24 14:02 Troponin T Hi Sens 6Hr Delta -12.75 ng/L (0-12) L 06/25/24 14:02 Total Protein 6.6 g/dL (6.6-8.7) 06/23/24 01:00 Albumin 3.3 g/dL (3.5-5.2) L 06/23/24 01:00 Globulin 3.3 g/dL (1.3-4.6) 06/23/24 01:00 Urine Color Yellow (Yellow) 06/23/24 00:00 Urine Appearance Clear (CLEAR) 06/23/24 00:00 Urine pH 5.0 (5-7) 06/23/24 00:00 Ur Specific [place] 1.017 (1.005-1.030) 06/23/24 00:00 Urine Protein 1+ (Negative) A 06/23/24 00:00 Urine Glucose (UA) Negative (Normal) 06/23/24 00:00 Urine Ketones Negative (Negative) 06/23/24 00:00 Urine Blood Negative (Negative) 06/23/24 00:00 Urine Nitrate Negative (Negative) 06/23/24 00:00 Urine Bilirubin Negative (Negative) 06/23/24 00:00 Urine Urobilinogen 0.2 mg/dL (Negative) 06/23/24 00:00 Ur Leukocyte Esterase Negative (Negative) 06/23/24 00:00 Urine RBC 0-2 /hpf (0-2) 06/23/24 00:00 Urine WBC 0-5 /hpf (0-5) 06/23/24 00:00 Ur Squamous Epith Cells 0-5 /hpf (0-5) 06/23/24 00:00 Amorphous Sediment Not Reportable 06/23/24 00:00 Urine Bacteria None seen /hpf (NONE) 06/23/24 00:00 Hyaline Casts 21.48 /lpf 06/23/24 00:00 Blood Type A Positive 06/25/24 14:10 Rho(D) Type Rh positive 06/25/24 14:10 Antibody Screen Positive 06/25/24 14:10 Antibody Identification Anti-M 06/25/24 14:10 Crossmatch See Detail 06/25/24 14:10 Other data: The EKG from today revealed Normal sinus rhythm with nonspecific IVCD. Nonspecific ST-T changes in the high lateral leads. Left axis deviation A&P Assessment and plan (1) Atherosclerotic heart disease [place] coronary artery w/angina pectoris: Patient had recent PCI of the 100% occluded LAD.. He is scheduled to have a staged intervention of the circumflex artery. At this point, I may optimize and anginal medications. Patient is wanting to have the angiogram and possible intervention done at the [facility] where his ammunition assembly i laborer is. Qualifiers: [place] vs. transplanted heart: [place] heart Qualified Code(s): I25.119 - Atherosclerotic heart disease of [place] coronary artery with unspecified angina pectoris (2) Elevated troponin: Most likely type II PR. Patient may be kept on the Plavix and aspirin. (3) Syncope: Possible related to hypoglycemia. Has no recurrence. Qualifiers: Syncope type: unspecified Qualified Code(s): R55 - Syncope and collapse (4) DM type 2 (diabetes mellitus, type 2): Management as per the primary. 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 Currently he is remaining afebrile Qualifiers: Endocarditis type: other Chronicity: unspecified Qualified Code(s): I38 - Endocarditis, valve unspecified (7) History of atrial fibrillation: Patient has a questionable history of atrial fibrillation and is on amiodarone. This may be continued. Plan I may add a small dose of beta-quincy namely metoprolol 12.5 mg p.o. twice daily to the current med regime Since the patient not wanting to undergo angiogram/intervention in this hospital, if he is remained stable, may be discharged home to have follow-up cardiac evaluation management by the tool machine set up operator at the [facility]. Consult Attestations Medical Necessity Statement: Deferred to the primary Coding Level of Care Code 48211 Diagnoses Atherosclerosis of [place] coronary artery of [place] heart with angina pectoris I25.119 [place] vs. transplanted heart: [place] heart Elevated troponin R79.89 Syncope, unspecified syncope type R55 Syncope type: unspecified Type 2 diabetes mellitus with other circulatory complication, with long-term current use of insulin E11.59; Z79.4 Diabetes mellitus cds sales advisor insulin use: with [facility] use Diabetes mellitus complication status: with circulatory complication Diabetes mellitus complication detail: with other circulatory complications Acute renal failure superimposed on stage 3b chronic kidney disease, unspecified acute renal failure type N17.9; N18.32 Acute renal failure type: unspecified Chronic kidney disease stage: stage 3 (moderate) Chronic kidney disease stage 3 subtype: stage 3b (GFR 30-44) Other endocarditis, unspecified chronicity I38 Endocarditis type: other Chronicity: unspecified History of atrial fibrillation Z86.79
[2024-06-25 20:49] LABS: Glucose Point of Care 239 mg/dL (70-110)
[2024-06-25 21:47] LABS: NT Pro B Type Natriuretic Pept 2298 pg/mL (0-125)
--- NOTE | 2024-06-25 22:10 | P.CONIM_ITS ---
Providers/Reason For Consult 2 Consulting Physician/Specialty*: kami grimes md / telenephrology Reason for Consult*: DEANNA on CKD Requesting Physician: DR Kristine Patel Attending Physician: Ammy Patel MD Primary Care Provider: Aura Camilo DO History of Present Illness History of Present Illness Juan Pablo Cheney is a 68 year old male History of atrial fibrillation recent endocarditis status post dental infection was treated at [facility]. While in the hospital he had a cardiac angiogram revealing coronary artery disease. He had a stent placed on 1 vessel and not in the second vessel as they were concerned about his renal risk. The patient presented this time with syncope after having HYPOGLYCEMIA, His sugar dropped to 36. 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 Renal history 2 years ago his creatinine was 0.9. On admission to the emergency room on June 09, 2024 his creatinine was 3. I do not have access to his [facility] records. The patient had a a creatinine of 3 once again all presenting here in June 23. And today's creatinine is 1.9 mg/dL. Of note the patient was using NSAIDs/Romero 2 inhibitor ( diclofenac) as an outpatient. Medical history includes hypertension diabetes hyperlipidemia and stage IV prostate cancer treated at [facility]. Review of Systems 2 Narrative: Some confusion, shortness of breath chest pain dyspnea on exertion weakness nausea poor sugar control. Difficulty urinating. Positive edema. Forgetfulness otherwise review of systems is negative. Medications/Allergies Home Medications Medication Instructions Recorded Confirmed Last Taken Type alprazolam 0.5 mg tablet (Xanax) 1 mg PO BID 03/06/20 06/23/24 Unknown History amiodarone 200 mg tablet 200 mg PO DAILY 06/23/24 06/23/24 Unknown History amlodipine 10 mg tablet 10 mg PO DAILY 06/23/24 06/23/24 Unknown History aspirin 81 mg tablet,delayed 81 mg PO DAILY 06/23/24 06/23/24 Unknown History release bumetanide 2 mg tablet 2 mg PO DAILY 06/23/24 06/23/24 Unknown History bupropion HCl 150 mg tablet,12 hr 150 mg PO BID 06/23/24 06/23/24 Unknown History sustained-release clopidogrel 75 mg tablet 75 mg PO DAILY 06/23/24 06/23/24 Unknown History diclofenac sodium 75 mg 75 mg PO BID 06/23/24 06/23/24 Unknown History tablet,delayed release duloxetine 60 mg capsule,delayed 60 mg PO DAILY 06/23/24 06/23/24 Unknown History release glipizide 10 mg tablet 10 mg PO BID 06/23/24 06/23/24 Unknown History methocarbamol 750 mg tablet 750 mg PO TID 06/23/24 06/23/24 Unknown History omeprazole 40 mg capsule,delayed 40 mg PO BID 06/23/24 06/23/24 Unknown History release potassium chloride 20 mEq 20 meq PO DAILY 06/23/24 06/23/24 Unknown History tablet,extended release(part/cryst) trazodone 50 mg tablet 50 mg PO BID 06/23/24 06/23/24 Unknown History Allergies Allergy/AdvReac Type Severity Reaction Status Date / Time metformin Allergy Unknown Verified 09/25/23 09:15 Current Medications Generic Name Dose Route Start Last Admin Trade Name Freq PRN Reason Stop Dose Admin Acetaminophen 500 mg 06/23/24 03:30 06/24/24 16:59 Acetaminophen 500 Mg Tablet PO 500 mg Q4H PRN Administration fever Alprazolam 1 mg 06/24/24 09:00 06/25/24 08:21 Alprazolam 0.5 Mg Tablet PO 1 mg DAILY PRABHJOT Administration Alprazolam 0.5 mg 06/24/24 21:00 06/24/24 20:12 Alprazolam 0.5 Mg Tablet PO 0.5 mg BEDTIME PRABHJOT Administration Amiodarone HCl 200 mg 06/25/24 12:25 06/25/24 13:52 Amiodarone 200 Mg Tablet PO 200 mg DAILY PRABHJOT Administration Aspirin 81 mg 06/23/24 09:00 06/25/24 08:20 Aspirin 81 Mg Ec Tablet PO 81 mg DAILY PRABHJOT Administration Atorvastatin Calcium 80 mg 06/23/24 09:00 06/25/24 08:20 Atorvastatin 40 Mg Tablet PO 80 mg DAILY PRABHJOT Administration Clopidogrel Bisulfate 75 mg 06/23/24 09:00 06/25/24 08:21 Clopidogrel 75 Mg Tablet PO 75 mg DAILY PRABHJOT Administration Furosemide 40 mg 06/25/24 12:30 06/25/24 12:32 Furosemide 10 Mg/Ml Sdv 4ml IVP Not Given Q12H [facility] Heparin Sodium (Porcine) 5,000 unit 06/23/24 03:30 06/25/24 14:48 Heparin 5,000 Unit/Ml Inj 1 Ml SUBCUT 5,000 unit Q12H PRABHJOT Administration Dextrose 250 mls @ 1,000 mls/hr 06/22/24 23:49 06/23/24 00:16 D10w IV Infused PRN PRN Infusion HYPOGLYCEMIA Isosorbide Mononitrate 30 mg 06/25/24 14:35 06/25/24 14:48 Isosorbide Mononitrate Er 30 Mg Tablet PO 30 mg DAILY PRABHJOT Administration Ondansetron HCl 4 mg 06/23/24 03:30 06/24/24 00:15 Ondansetron 2 Mg/Ml Sdv 2 Ml IVP 4 mg Q6H PRN Administration NAUSEA AND VOMITING Pantoprazole Sodium 40 mg 06/23/24 09:00 06/25/24 16:56 Pantoprazole 40 Mg Sdv IVP 40 mg BID PRABHJOT Administration Senna/Docusate Sodium 2 tab 06/23/24 09:00 06/25/24 16:55 Sennosides-Docusate Tablet PO 2 tab BID PRABHJOT Administration Trazodone HCl 50 mg 06/25/24 18:00 06/25/24 16:55 Trazodone 50 Mg Tablet PO 50 mg BID PRABHJOT Administration PFSH Acute 2 PFSH: Medical History (Updated 06/25/24 @ 21:07 by Jenna Ferraro MD) Endocarditis Coronary artery disease New onset of congestive heart failure Status post transesophageal echocardiogram (HANG) Endocarditis A-fib DM type 2 (diabetes mellitus, type 2) Anxiety Social History Alcohol intake: never Substance/Drug Use: never Vitals/I&O/Wt Last Vital Signs Temp 97.4 F L 06/25/24 20:00 Pulse 89 06/25/24 20:00 Resp 16 06/25/24 20:00 BP 131/67 06/25/24 20:00 Pulse Ox 96 06/25/24 20:00 O2 Del Method Room Air 06/25/24 20:00 06/25/24 06/25/24 06/25/24 06:59 14:59 22:59 Intake Total 480 / 2038.5 480 / 480 120 / 600 Output Total 2100 / 9250 1300 / 1300 Balance -1620 / -7211.5 -820 / -820 120 / -700 Weight last 48 hrs Weight 111.13 kg Weight 116.392 kg Weight 76.975 kg Physical Exam 2 Narrative: The patient is comfortable in bed no apparent distress. Vital signs noted. HEENT normocephalic atraumatic. Neck is supple no JVP no carotid bruits. Lungs are clear to auscultation. Heart is regular with a systolic murmur. Positive S1-S2. Abdomen is soft positive bowel sounds. Extremities 1+ bilateral leg edema. Neuro awake alert oriented x 3 positive stocking glove neuropathy. Good mood. No rashes. Urinary Catheter Management: Torres: Cath Placed During This Visit: yes, but has since been removed by the nurse Reason for Continuing Indwelling Catheter: Decision to DC Catheter Urinary Catheter Date of Insertion: 06/22/24 Urinary Catheter Time of Insertion: 23:55 Date Urinary Catheter Removed: 06/25/24 Time Urinary Catheter Discontinued: 11:20 Data 06/25/24 14:10 06/25/24 06:02 A&P Assessment and plan (1) Acute on chronic kidney failure: 68-year-old gentleman with recent endocarditis. Patient has diabetes A-fib hypertension hyperlipidemia obesity. Patient had recent tooth infection endocarditis. In May 2022 his creatinine was normal this month this creatinine has been around 3 mg/dL and today's creatinine is the best it has been at 1.9 mg/dL. The patient has had multiple urinalysis here over the last 6 weeks. He has trace to 2+ protein. Currently his blood is negative while in May 2024 he had 40-50 RBCs. His most recent kidney CT scan showed a 3 mm calcification in the lower pole of the left kidney consistent with small nonobstructing stone in the calyx. There is no hydronephrosis. However in May 2024, the patient had a CT scan showing left UVJ 5.1 mm calculus with mild hydronephrosis and hydroureter along with perinephric edema at the same time that he had a urinalysis with hematuria likely stones at that time. Differential diagnosis of patient's renal failure includes diabetic nephropathy, Interstitial nephritis from recent antibiotics versus NSAID effect. Patient can also have endocarditis related GN. It is less likely that his stones close his kidney failure as she only had unilateral hydronephrosis. Given the fact that patient has anemia and thrombocytopenia we will also check an SPEP and immunofixation. I will review with the patient any possible chemotherapy that he received in the past. Based on imaging this is less likely to be radiation induced nephritis. It is possible that patient has cardiorenal syndrome given the fact that he likely has HFpEF and aortic regurgitation and mitral regurgitation on echo. Continue to keep patient off of NSAIDs and glipizide's. -Once patient's creatinine is stabilized we will discuss with cardiology initiation of an SGLT2 inhibitor which have a lower risk of hypoglycemia. And based on where creatinine stabilizes can also consider using metformin or a GLP-1 receptor agonist. What is interesting is the patient has not had significant proteinuria even though he has diabetes. 2. Cardiac known CAD patient prefers to have catheterization at [facility]. Patient is EF is 71% he has moderately increased right atrial size with a thickened mitral valve and moderately severe eccentric mitral regurgitation is moderate aortic regurgitation -Continue diuresis. -Per cardiology the patient does not need emergent catheterization. We tried him optimize renal function prior to cardiac catheterization. However maximizing cardiac output and cardiac function will likely treat his cardiorenal syndrome and help the patient now. 3. A-fib is controlled. The patient was seen and examined using audiovisual equipment with the aid of a nurse. The patient consented to telehealth. Patient's questions were answered. Thank you for this interesting consult. Qualifiers: Acute renal failure type: unspecified Chronic kidney disease stage: s tage 3 (moderate) Chronic kidney disease stage 3 subtype: stage 3b (GFR 30-44) Qualified Code(s): N17.9 - Acute kidney failure, unspecified; N18.32 - Chronic kidney disease, stage 3b Plan See above. Consult Attestations 2 Medical Necessity Statement: Hypoglycemia, acute on chronic renal failure, coronary artery disease, acute on chronic exacerbation of heart failure preserved EF with valvular heart disease. Time Spent in Patient Care: Greater than 35 minutes (>than 50% of time spent in counselling and/or direct pt care on unit) . Coding Level of Care Code Acute Code for g Fwd Diagnoses Acute renal failure superimposed on stage 3b chronic kidney disease, unspecified acute renal failure type N17.9; N18.32 Acute renal failure type: unspecified Chronic kidney disease stage: stage 3 (moderate) Chronic kidney disease stage 3 subtype: stage 3b (GFR 30-44)
[2024-06-25] MEDS: ALPRAZolam 0.5 mg Tablet PO (22:11)
[2024-06-25 23:30] LABS: Bilirubin Urine Negative (Negative); Blood Urine 1+ (Negative); Glucose Urine UA Negative (Normal); Ketones Urine Negative (Negative); Leukocyte Esterase Urine Negative (Negative); Nitrate Urine Negative (Negative); Protein Urine Negative (Negative); Specific Gravity, Urine 1.014 (1.005-1.030); Urine Appearance Clear (CLEAR); Urine Color Yellow (Yellow); Urobilinogen Urine 0.2 mg/dL (Negative)
[2024-06-25 23:35] LABS: Bacteria Urine None Seen /hpf; Hyaline Casts Urine 0.81 /lpf; Squamous Epithelial Cell Urine 0-5 /hpf (0-5); WBC Urine 0-5 /hpf (0-5)
[2024-06-25 23:45] LABS: Potassium, Radom Urine 16 mmol/L; Urine Random Chloride 48 mmol/L; Urine Random Sodium 60 mmol/L
[2024-06-26] VITALS (7 sets, daily range): BP systolic 96–126; BP diastolic 56–74; PULSE 78–112; RESP 14–18; TEMP 36.7–37.3; O2SAT 94–98
[2024-06-26 00:03] LABS: Uric Acid 13.6 mg/dL (3.4-7.0)
[2024-06-26 00:11] LABS: Hepatitis C Virus Antibody Non-Reactive (Nonreactive)
[2024-06-26] MEDS: heparin 5,000 unit/mL INJ 1 mL 5000 UNIT SUBCUT (04:39)
[2024-06-26] MEDS: FUROsemide 10 mg/mL SDV 4mL 40 MG IVP (04:39)
[2024-06-26 06:10] LABS: Basophils # 0.1 10^3/uL (0.0-0.1); Basophils % 0.8 %; Eosinophils # 0.2 10^3/uL (0.0-0.8); Eosinophils % 3.2 %; Hematocrit 28.7 % (37-53); Lymphocytes % 15.4 %; Mean Corpuscular HGB Conc 30.3 g/dL (30-55); Mean Corpuscular Hemoglobin 25.9 pg (27-33); Mean Corpuscular Volume 85.4 fl (82-101); Mean Platelet Volume 9.8 fL (7.4-10.4); Monocytes # 0.5 10^3/uL (0.2-0.9); Monocytes % 7.4 %; Neutrophils # 4.73 10^3/uL (1.8-7.7); Neutrophils % 72.9 %; Nucleated Red Blood Cells % 0 %; Platelet Count 157 10^3/cmm (157-399); Red Blood Count 3.36 10^6/uL (3.85-5.65); Red Cell Distribution Width 16.9 % (12.1-15.1); White Blood Count 6.49 10^3/uL (3.29-11.43)
[2024-06-26 06:29] LABS: Glucose Point of Care 159 mg/dL (70-110)
[2024-06-26 06:38] LABS: Alanine Aminotransferase 8 U/L (0-41); Albumin Level 3.4 g/dL (3.5-5.2); Alkaline Phosphatase 80 U/L (40-130); Anion Gap 15.2 (5-19); Aspartate Amino Transferase 18 U/L (0-40); Blood Urea Nitrogen 47 mg/dL (8-23); Calcium 9.3 mg/dL (8.5-10.5); Carbon Dioxide 26 mmol/L (22-29); Chloride 101 mmol/L (98-107); Creatinine Clr Calc Pharmacy 68.8306; Ferritin 44 ng/mL (30-400); Globulin 3.7 g/dL (1.3-4.6); Glomerular Filtration Rate 54.7 mL/min (90-130); Glucose 136 mg/dL (65-115); Iron 22 ug/dL (59-158); Osmolality Calculated 300 mOsm/kg (285-295); Percent Saturation 6.3 % (20-50); Phosphorus 1.9 mg/dL (2.5-4.5); Potassium 4.2 mmol/L (3.5-5.1); Sodium 138 mmol/L (136-145); Total Bilirubin 0.7 mg/dL (0.15-1.2); Total Iron Binding Capacity 347 mcg/dl; Total Protein 7.1 g/dL (6.6-8.7); Unsaturated Iron Binding 325 ug/dL (112-347)
[2024-06-26 06:39] LABS: Calcium 9.1 mg/dL (8.5-10.5)
[2024-06-26 06:51] LABS: 25 Hydroxy Vitamin D 11 ng/mL (30-100)
[2024-06-26] MEDS: atorvastatin 40 mg Tablet 80 MG PO (09:35)
[2024-06-26] MEDS: sennosides-docusate Tablet 2 TAB PO (09:35)
[2024-06-26] MEDS: aspirin 81 mg EC Tablet PO (09:35)
[2024-06-26] MEDS: ALPRAZolam 0.5 mg Tablet 1 MG PO (09:36)
[2024-06-26] MEDS: clopidogrel 75 mg Tablet PO (09:36)
[2024-06-26] MEDS: pantoprazole 40 mg SDV IVP (09:36)
[2024-06-26] MEDS: amiodarone 200 mg Tablet PO (09:38)
[2024-06-26] MEDS: metoprolol tartrate 25 mg Tablet 12.5 MG PO (09:38)
[2024-06-26] MEDS: isosorbide mononitrate ER 30 mg Tablet PO (09:38)
--- NOTE | 2024-06-26 09:47 | P.PN_ITS ---
Subjective 2 Subjective: feels better. dec sob or cp at rest. no n/v/f/c/frias/d. + leg edema. no urinary complaints Medications: Reviewed: Yes Medication Review Details: Current Medications Acetaminophen (Acetaminophen 500 Mg Tablet) 500 mg PO Q4H PRN PRN Reason: fever Last Admin: 06/24/24 16:59 Dose: 500 mg Albuterol/Ipratropium (Ipratropium-Albuterol 3 Ml Neb) 3 ml INHALATION Q6H PRN PRN Reason: SHORTNESS OF BREATH Alprazolam (Alprazolam 0.5 Mg Tablet) 1 mg PO DAILY [facility] Last Admin: 06/26/24 09:36 Dose: 1 mg Alprazolam (Alprazolam 0.5 Mg Tablet) 0.5 mg PO BEDTIME [facility] Last Admin: 06/25/24 22:11 Dose: 0.5 mg Amiodarone HCl (Amiodarone 200 Mg Tablet) 200 mg PO DAILY [facility] Last Admin: 06/26/24 09:38 Dose: 200 mg Aspirin (Aspirin 81 Mg Ec Tablet) 81 mg PO DAILY [facility] Last Admin: 06/26/24 09:35 Dose: 81 mg Atorvastatin Calcium (Atorvastatin 40 Mg Tablet) 80 mg PO DAILY [facility] Last Admin: 06/26/24 09:35 Dose: 80 mg Clopidogrel Bisulfate (Clopidogrel 75 Mg Tablet) 75 mg PO DAILY [facility] Last Admin: 06/26/24 09:36 Dose: 75 mg Furosemide (Furosemide 10 Mg/Ml Sdv 4ml) 40 mg IVP Q12H [facility] Last Admin: 06/26/24 04:39 Dose: 40 mg Heparin Sodium (Porcine) (Heparin 5,000 Unit/Ml Inj 1 Ml) 5,000 unit SUBCUT Q12H [facility] Last Admin: 06/26/24 04:39 Dose: 5,000 unit Dextrose (D10w) 250 mls @ 1,000 mls/hr IV PRN PRN PRN Reason: HYPOGLYCEMIA Last Infusion: 06/23/24 00:16 Dose: Infused Dextrose (D5w) 500 mls @ 0 mls/hr IV ONCE PRN; Protocol PRN Reason: Adult Acute Hypoglycemia Prot Dextrose (D10w) 250 mls @ 1,000 mls/hr IV PRN PRN; Protocol PRN Reason: Adult Acute Hypoglycemia Nursing Protocol Isosorbide Mononitrate (Isosorbide Mononitrate Er 30 Mg Tablet) 30 mg PO DAILY [facility] Last Admin: 06/26/24 09:38 Dose: 30 mg Metoprolol Tartrate (Metoprolol Tartrate 25 Mg Tablet) 12.5 mg PO BID [facility] Last Admin: 06/26/24 09:38 Dose: 12.5 mg Non-Formulary Medication (Bumetanide) 2 mg PO DAILY [facility] Ondansetron HCl (Ondansetron 2 Mg/Ml Sdv 2 Ml) 4 mg IVP Q6H PRN PRN Reason: NAUSEA AND VOMITING Last Admin: 06/24/24 00:15 Dose: 4 mg Pantoprazole Sodium (Pantoprazole 40 Mg Sdv) 40 mg IVP BID [facility] Last Admin: 06/26/24 09:36 Dose: 40 mg Senna/Docusate Sodium (Sennosides-Docusate Tablet) 2 tab PO BID [facility] Last Admin: 06/26/24 09:35 Dose: 2 tab Sodium Chloride (Sodium Chloride 0.9% 50 Ml Bag) 50 ml IV PRN PRN PRN Reason: Blood transfusion prime and flush Stop: 06/26/24 12:26 Trazodone HCl (Trazodone 50 Mg Tablet) 50 mg PO BID [facility] Last Admin: 06/25/24 16:55 Dose: 50 mg Vitals/I&O/Wt Last Vital Signs Temp 98.2 F 06/26/24 07:14 Pulse 112 H 06/26/24 09:38 Resp 16 06/26/24 09:38 BP 122/66 06/26/24 09:38 Pulse Ox 96 06/26/24 09:38 O2 Del Method Room Air 06/26/24 09:05 06/25/24 06/26/24 06/26/24 22:59 06:59 14:59 Intake Total 120 / 600 800 / 1400 118 / 118 Balance 120 / -700 800 / 100 118 / 118 Weight last 48 hrs Weight 110.45 kg Weight 111.13 kg Physical Exam 2 Narrative: The patient is comfortable in bed no apparent distress. Vital signs noted. HEENT normocephalic atraumatic. Neck is supple no JVP no carotid bruits. Lungs are clear to auscultation. Heart is regular with a systolic murmur. Positive S1-S2. Abdomen is soft positive bowel sounds. Extremities 2+ bilateral leg edema. Neuro awake alert oriented x 3 positive stocking glove neuropathy. Good mood. No rashes. Urinary Catheter Management: Torres: Cath Placed During This Visit: yes, but has since been removed by the nurse Reason for Continuing Indwelling Catheter: Decision to DC Catheter Urinary Catheter Date of Insertion: 06/22/24 Urinary Catheter Time of Insertion: 23:55 Date Urinary Catheter Removed: 06/25/24 Time Urinary Catheter Discontinued: 11:20 Data 06/26/24 05:56 06/26/24 05:56 A&P Assessment and plan (1) Acute on chronic kidney failure: 68-year-old gentleman with recent endocarditis. Patient has diabetes A-fib hypertension hyperlipidemia obesity. Patient had recent tooth infection endocarditis. In May 2022 his creatinine was normal this month this creatinine has been around 3 mg/dL. renal function is improving. cr is now 1.3 mg/dl The patient has had multiple urinalysis here over the last 6 weeks. He has trace to 2+ protein. Currently his blood is negative while in May 2024 he had 40-50 RBCs. His most recent kidney CT scan showed a 3 mm calcification in the lower pole of the left kidney consistent with small nonobstructing stone in the calyx. There is no hydronephrosis. However in May 2024, the patient had a CT scan showing left UVJ 5.1 mm calculus with mild hydronephrosis and hydroureter along with perinephric edema at the same time that he had a urinalysis with hematuria likely stones at that time. -Renal us 12.5 cm, left 12. 3 cm no PVR Continue to keep patient off of NSAIDs and glipizide's. - the patient does not had significant proteinuria even though he has diabetes. 2. Cardiac known CAD patient prefers to have catheterization at [facility]. Patient is EF is 71% he has moderately increased right atrial size with a thickened mitral valve and moderately severe eccentric mitral regurgitation is moderate aortic regurgitation -Continue diuresis. -Per cardiology the patient does not need emergent catheterization. -renal fxn improving. may proceed with cath when needed 3. A-fib is controlled. 4. replace phos 5. CHUY- ferritin 44, tsat 6.3%- give ferrlecit 6. HFpEF- cont furosemide leg edmea- check venous dopplers The patient was seen and examined using audiovisual equipment with the aid of a nurse. The patient consented to telehealth. Patient's questions were answered. Thank you for this interesting consult. Qualifiers: Acute renal failure type: unspecified Chronic kidney disease stage: s tage 3 (moderate) Chronic kidney disease stage 3 subtype: stage 3b (GFR 30-44) Qualified Code(s): N17.9 - Acute kidney failure, unspecified; N18.32 - Chronic kidney disease, stage 3b Plan See above. Attestations 2 Medical Necessity Statement*: per medicine, anemia, CAD, improving DEANNA Time Spent in Patient Care: 16 - 35 minutes (>than 50% of time sp ent in counselling and/or direct pt care on unit) . Coding Level of Care Code Acute Code for [facility] Fwd Diagnoses Acute renal failure superimposed on stage 3b chronic kidney disease, unspecified acute renal failure type N17.9; N18.32 Acute renal failure type: unspecified Chronic kidney disease stage: stage 3 (moderate) Chronic kidney disease stage 3 subtype: stage 3b (GFR 30-44)
[2024-06-26 10:59] LABS: Glucose Point of Care 182 mg/dL (70-110)
--- NOTE | 2024-06-26 10:59 | P.DS_ITS ---
Discharge Providers Date of Admission: 06/24/24 10:30 Date of Discharge: June 26, 2024 Attending Provider at Admission: Kaveh Hatch MD Attending Provider at Discharge: Ammy Patel MD Primary Care Provider: Aura Camilo DO Diagnoses at Discharge Discharge Diagnosis (1) Acute on chronic kidney failure: Status: Resolved Qualifiers: Acute renal failure type: unspecified Chronic kidney disease stage: stage 3 (moderate) Chronic kidney disease stage 3 subtype: stage 3b (GFR 30-44) Qualified Code(s): N17.9 - Acute kidney failure, unspecified; N18.32 - Chronic kidney disease, stage 3b Reason for Visit Reason for Visit: HYPOGLYCEMIA Hospital Course Hospital Course Patient presented to the hospital with altered mental status and falls found to be hypoglycemic. He recently had a stent placed at [facility] where it was noted he has blockage and another vessel requiring a staged procedure later on. Second drug-eluting stent was held off secondary to DEANNA on CKD secondary to large contrast load. Upon admission to [facility] patient's creatinine was noted to be 4.4. He was definitely an DEANNA. Nephrotoxic agents were held and he was placed on diuresis with improvement in creatinine eventually. He did require a D10 drip for the first 24 hours and glipizide at home was stopped. During hospitalization patient developed chest pain which was typical and cardiac in nature. Troponins were elevated however delta was not significant. With known obstructive coronary artery disease and known blockage cardiology was consulted. Nephrology was also consulted. 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 He was also noted to have low hemoglobin as he does have a history of bleed in the past and has been taken off of Eliquis. However on repeat labs hemoglobin was stable and therefore blood transfusion was held. Initially after hypoglycemia resolved and D10 drip was stopped patient was purposely kept in the hospital for observation to ensure blood sugar remained stable prior to discharge secondary to DEANNA on CKD.Patient is a high risk patient and has been advised to return to the hospital in case of any further chest pain events where he may have to undergo cardiac catheterization sooner than later. Physical Exam Narrative: General: Alert oriented x3, NAD, at bedside HEENT: Normocephalic, atraumatic, EOMI, breathing normally on room air. Cardio: Regular rate rhythm, normal S1-S2, Respiratory: Good bilateral air entry, no wheezes no rhonchi appreciated GI: Abdomen soft, nontender, nondistended, bowel sounds + Behavior: Appropriate and cooperative Extremities: No edema bilateral lower extremities. Urinary Catheter Management: Torres: Cath Placed During This Visit: yes, but has since been removed by the nurse Reason for Continuing Indwelling Catheter: Decision to DC Catheter Urinary Catheter Date of Insertion: 06/22/24 Urinary Catheter Time of Insertion: 23:55 Date Urinary Catheter Removed: 06/25/24 Time Urinary Catheter Discontinued: 11:20 Discharge Data Studies Completed and Pending Completed Studies During Hospitalization Category Date Time Status XR chest 1V portable [id number] Stat Exams 06/22/24 23:57 Completed CV. echo complete* [id number] Stat Ultrasound 06/25/24 10:28 Completed US renal BI* [id number] Routine Ultrasound 06/26/24 22:27 Completed Pending at discharge Category Date Time Status PRETTY Screen w/ Reflex Routine Lab 06/25/24 22:27 Received Anti-Neutrophil Cytoplasmic AB Routine Lab 06/25/24 22:27 Received Antibody Identification Routine Lab 06/25/24 14:10 Results Complete Blood Count w/Auto AM LABS Lab 06/27/24 04:00 Ordered Complete Blood Count w/Auto AM LABS Lab 06/28/24 04:00 Ordered Comprehensive Metabolic Panel AM LABS Lab 06/27/24 04:00 Ordered Comprehensive Metabolic Panel AM LABS Lab 06/28/24 04:00 Ordered FREE LIGHT CHAIN SERUM [KAPPA/LAMBDA Light Free Serum] Lab 06/26/24 05:56 Received AM LABS Glomerular Basement AB IGG Routine Lab 06/25/24 22:27 Received Immunofixation Serum Routine Lab 06/25/24 22:27 Received Leukocyte Reduced RBC Routine Lab 06/25/24 14:10 Results Magnesium AM LABS Lab 06/27/24 04:00 Ordered Magnesium AM LABS Lab 06/28/24 04:00 Ordered Magnesium AM LABS Lab 06/29/24 04:00 Ordered Phosphorus AM LABS Lab 06/27/24 04:00 Ordered Phosphorus AM LABS Lab 06/28/24 04:00 Ordered Serum Protien Electrophoresis [Total Protein Lab 06/26/24 05:56 Received Electrophoresis] AM LABS Type and Screen Routine Lab 06/25/24 14:10 Results Radiology Impressions Chest X-Ray 06/22/24 23:57 IMPRESSION: Small bilateral pleural effusions. Renal Ultrasound 06/26/24 22:27 IMPRESSION: 1. No hydronephrosis or solid mass. 2. No cortical atrophy. 3. No significant post void urinary bladder residual. Laboratory Results WBC 6.49 10^3/uL (3.29-11.43) 06/26/24 05:56 RBC 3.36 10^6/uL (3.85-5.65) L 06/26/24 05:56 Hgb 8.70 g/dL (11.27-16.99) L 06/26/24 05:56 Hct 28.7 % (37-53) L 06/26/24 05:56 MCV 85.4 fl (82-101) 06/26/24 05:56 MCH 25.9 pg (27-33) L 06/26/24 05:56 MCHC 30.3 g/dL (30-55) 06/26/24 05:56 RDW 16.9 % (12.1-15.1) H 06/26/24 05:56 Plt Count 157 10^3/cmm (157-399) 06/26/24 05:56 MPV 9.8 fL (7.4-10.4) 06/26/24 05:56 Neut % (Auto) 72.9 % 06/26/24 05:56 Lymph % (Auto) 15.4 % 06/26/24 05:56 [place] % (Auto) 7.4 % 06/26/24 05:56 Eos % (Auto) 3.2 % 06/26/24 05:56 Baso % (Auto) 0.8 % 06/26/24 05:56 Neut # (Auto) 4.73 10^3/uL (1.8-7.7) 06/26/24 05:56 Lymph # (Auto) 1.0 10^3/uL (0.8-4.8) 06/26/24 05:56 [place] # (Auto) 0.5 10^3/uL (0.2-0.9) 06/26/24 05:56 Eos # (Auto) 0.2 10^3/uL (0.0-0.8) 06/26/24 05:56 Baso # (Auto) 0.1 10^3/uL (0.0-0.1) 06/26/24 05:56 Nucleated RBC % (auto) 0 % 06/26/24 05:56 Nucleated RBCs # 0.0 /100WBC 06/26/24 05:56 Sodium 138 mmol/L (136-145) 06/26/24 05:56 Potassium 4.2 mmol/L (3.5-5.1) 06/26/24 05:56 Chloride 101 mmol/L (98-107) 06/26/24 05:56 Carbon Dioxide 26 mmol/L (22-29) 06/26/24 05:56 Anion Gap 15.2 (5-19) 06/26/24 05:56 BUN 47 mg/dL (8-23) H 06/26/24 05:56 Creatinine 1.3 mg/dL (0.7-1.2) H 06/26/24 05:56 GFR Calculation 54.7 mL/min (90-130) L 06/26/24 05:56 Glucose 136 mg/dL (65-115) H 06/26/24 05:56 POC Glucose 159 mg/dL (70-110) H 06/26/24 06:14 Estimat Average Glucose 105 06/23/24 12:33 Hemoglobin A1c 5.3 % (4.0-6.0) 06/23/24 12:33 Calculated Osmolality 300 mOsm/kg (285-295) H 06/26/24 05:56 Lactic Acid 1.6 mmol/L (0.5-2.2) 06/23/24 01:00 Uric Acid 13.6 mg/dL (3.4-7.0) H 06/25/24 09:35 Calcium 9.3 mg/dL (8.5-10.5) 06/26/24 05:56 Phosphorus 1.9 mg/dL (2.5-4.5) L 06/26/24 05:56 Magnesium 2.0 mg/dL (1.7-2.3) 06/26/24 05:56 Iron 22 ug/dL (59-158) L 06/26/24 05:56 TIBC 347 mcg/dl 06/26/24 05:56 % Saturation 6.3 % (20-50) L 06/26/24 05:56 Unsat Iron Binding 325 ug/dL (112-347) 06/26/24 05:56 Ferritin 44 ng/mL (30-400) 06/26/24 05:56 Total Bilirubin 0.7 mg/dL (0.15-1.2) 06/26/24 05:56 AST 18 U/L (0-40) 06/26/24 05:56 ALT 8 U/L (0-41) 06/26/24 05:56 Alkaline Phosphatase 80 U/L (40-130) 06/26/24 05:56 Troponin T Baseline 50 ng/L (0-15) H 06/25/24 06:02 Troponin T 120 Minute 43.57 ng/L (0-15) H 06/25/24 09:35 Delta Troponin T -6.43 ABS# (0-10) L 06/25/24 09:35 Troponin T Hi Sens 6Hr 37.25 ng/L (0-15) H 06/25/24 14:02 Troponin T Hi Sens 6Hr Delta -12.75 ng/L (0-12) L 06/25/24 14:02 NT-Pro-B Natriuret Pep 2298 pg/mL (0-125) H 06/25/24 14:02 Total Protein 7.1 g/dL (6.6-8.7) 06/26/24 05:56 Albumin 3.4 g/dL (3.5-5.2) L 06/26/24 05:56 Globulin 3.7 g/dL (1.3-4.6) 06/26/24 05:56 25-OH Vitamin D Total 11 ng/mL (30-100) L 06/26/24 05:56 PTH Intact 76.0 pg/mL (15-65) H 06/26/24 05:56 Calcium (PTH Intact) 9.1 mg/dL (8.5-10.5) 06/26/24 05:56 Urine Color Yellow (Yellow) 06/25/24 22:54 Urine Appearance Clear (CLEAR) 06/25/24 22:54 Urine pH 5.0 (5-7) 06/25/24 22:54 Ur Specific [place] 1.014 (1.005-1.030) 06/25/24 22:54 Urine Protein Negative (Negative) 06/25/24 22:54 Urine Glucose (UA) Negative (Normal) 06/25/24 22:54 Urine Ketones Negative (Negative) 06/25/24 22:54 Urine Blood 1+ (Negative) A 06/25/24 22:54 Urine Nitrate Negative (Negative) 06/25/24 22:54 Urine Bilirubin Negative (Negative) 06/25/24 22:54 Urine Urobilinogen 0.2 mg/dL (Negative) 06/25/24 22:54 Ur Leukocyte Esterase Negative (Negative) 06/25/24 22:54 Urine RBC 3-5 /hpf (0-2) 06/25/24 22:54 Urine WBC 0-5 /hpf (0-5) 06/25/24 22:54 Ur Squamous Epith Cells 0-5 /hpf (0-5) 06/25/24 22:54 Amorphous Sediment Not Reportable 06/25/24 22:54 Urine Bacteria None seen /hpf (NONE) 06/25/24 22:54 Hyaline Casts 0.81 /lpf 06/25/24 22:54 Ur Random Sodium 60 mmol/L 06/25/24 22:54 Ur Random Potassium 16 mmol/L 06/25/24 22:54 Ur Random Chloride 48 mmol/L 06/25/24 22:54 Hepatitis C Antibody Non-reactive (Nonreactive) 06/25/24 06:02 Blood Type A Positive 06/25/24 14:10 Rho(D) Type Rh positive 06/25/24 14:10 Antibody Screen Positive 06/25/24 14:10 Antibody Identification Anti-M 06/25/24 14:10 Crossmatch See Detail 06/25/24 14:10 Vitals Last Vital Signs Temp 98.2 F 06/26/24 07:14 Pulse 112 H 06/26/24 09:38 Resp 16 06/26/24 09:38 BP 122/66 06/26/24 09:38 Pulse Ox 96 06/26/24 09:38 O2 Del Method Room Air 06/26/24 09:05 Discharge Plan Discharge Patient Disposition: Home Condition: Stable Prescriptions: New isosorbide mononitrate 30 mg Tablet Extended Release 24 Hr 30 mg PO DAILY Qty: 30 0RF metoprolol succinate [Toprol XL] 25 mg tablet extended release 24 hr 25 mg PO DAILY Qty: 30 0RF potassium chloride 10 mEq capsule, extended release 10 meq PO DAILY Qty: 30 0RF Continued alprazolam [Xanax] 0.5 mg tablet 1 mg PO BID bupropion HCl 150 mg tablet sustained-release 12 hr 150 mg PO BID bumetanide 2 mg tablet 2 mg PO DAILY trazodone 50 mg tablet 50 mg PO BID amiodarone 200 mg tablet 200 mg PO DAILY clopidogrel 75 mg tablet 75 mg PO DAILY omeprazole 40 mg capsule,delayed release(DR/EC) 40 mg PO BID aspirin 81 mg Tablet,Delayed Release (Dr/Ec) 81 mg PO DAILY amlodipine 10 mg tablet 10 mg PO DAILY duloxetine 60 mg capsule,delayed release(DR/EC) 60 mg PO DAILY Held methocarbamol 750 mg tablet 750 mg PO TID Hold Instructions: see pcp Discontinued glipizide 10 mg tablet 10 mg PO BID potassium chloride 20 mEq tablet,ER particles/crystals 20 meq PO DAILY diclofenac sodium 75 mg tablet,delayed release (DR/EC) 75 mg PO BID Discharge Orders: Discharge Order (Routine); Ordered 06/26/24 Ordered By: Ammy Patel Referrals: Aura Camilo DO [Primary Care Provider] - 06/30/24 9:00 am (october at [facility] check in at 8:45am) Discharge Diet: Cardiac Discharge Activity: Resume usual activity Patient Instructions: Opioid Safety Discharge Attestations Time Spent in Discharge Care*: greater than 30 min Quality Metrics Clinical Quality Measures [ No reported AMI, CVA or VTE this stay] Coding Level of Care Code Acute Code for Chg Fwd Diagnoses Acute renal failure superimposed on stage 3b chronic kidney disease, unspecified acute renal failure type N17.9; N18.32 Acute renal failure type: unspecified Chronic kidney disease stage: stage 3 (moderate) Chronic kidney disease stage 3 subtype: stage 3b (GFR 30-44)
--- NOTE | 2024-06-26 22:27 | US_ITS ---
WS: [id number] RENAL ULTRASOUND HISTORY: atif COMPARISON: 04/16/2019 TECHNIQUE: 2-D and color Doppler imaging of the kidney submitted. Right kidney: 12.5 cm x 6.7 cm x 5.7 cm. Cortex: 1.2 cm No hydronephrosis. Exophytic cortical cyst from the lower pole measures 1.2 cm. Left kidney: 12.3 cm x 7.0 cm x 5.5 cm. Cortex: 1.2 cm Normal echogenicity with no hydronephrosis or mass. Aorta: Normal. Urinary Bladder: Normal distention. Prevoid: 126 mL. Post void: 21 mL. US/US renal BI* [id number] IMPRESSION: 1. No hydronephrosis or solid mass. 2. No cortical atrophy. 3. No significant post void urinary bladder residual.
[2024-06-27 06:59] LABS: PROTEIN, TOTAL 6.7 g/dL (6.1-8.1)
[2024-06-27 13:34] LABS: KAPPA LIGHT CHAIN, FREE, SERUM 80.2 mg/L (3.3-19.4); KAPPA/LAMBDA LIGHT CHAINS FREE 1.46 (0.26-1.65); LAMBDA LIGHT CHAIN, FREE, SERU 55.1 mg/L (5.7-26.3)
[2024-06-27 21:15] LABS: ABNORMAL PROTEIN BAND 1 0.1 g/dL (NONE DETECTED); ALBUMIN 3.1 g/dL (3.8-4.8); ALPHA 1 GLOBULIN 0.4 g/dL (0.2-0.3); ALPHA 2 GLOBULIN 0.7 g/dL (0.5-0.9); BETA 1 GLOBULIN 0.5 g/dL (0.4-0.6); BETA 2 GLOBULIN 0.4 g/dL (0.2-0.5); GAMMA GLOBULIN 1.5 g/dL (0.8-1.7)
[2024-06-29 21:14] LABS: Immunofixation Serum Normal pattern.
[2024-07-01 12:35] LABS: Glomerular Bsmt Membrane IGG <1.0 AI
[2024-07-01 15:03] LABS: Anti-Nuclear Antibody Screen NEGATIVE (NEGATIVE)
[2024-07-04 03:05] LABS: ANCA Screen NEGATIVE (NEGATIVE)
== END 2024-06-26 13:50 | disposition home or self-care (01) | DRG 682 ==
LOC: ER 06-23 02:35 → MEDSURG 06-23 03:26
PROVIDERS: Family Medicine; Internal Medicine Cardiovascular Disease; Internal Medicine Nephrology; Student in an Organized Health Care Education/Training Program; Admitting Provider Internal Medicine; Emergency Provider Emergency Medicine; PCP Family Medicine; Visit Provider Internal Medicine
DX: N17.9 Acute kidney failure, unspecified (principal); G93.41 Metabolic encephalopathy; I50.31 Acute diastolic (congestive) heart failure; I13.0 Hypertensive heart and chronic kidney disease with heart failure and stage 1 through stage 4 chronic kidney disease, or unspecified chronic kidney disease; E87.20 Acidosis, unspecified; E11.22 Type 2 diabetes mellitus with diabetic chronic kidney disease; N18.32 Chronic kidney disease, stage 3b; E11.649 Type 2 diabetes mellitus with hypoglycemia without coma; E11.42 Type 2 diabetes mellitus with diabetic polyneuropathy; I25.10 Atherosclerotic heart disease of native coronary artery without angina pectoris; D50.9 Iron deficiency anemia, unspecified; D63.1 Anemia in chronic kidney disease; E78.5 Hyperlipidemia, unspecified; C61 Malignant neoplasm of prostate; F41.9 Anxiety disorder, unspecified; I48.91 Unspecified atrial fibrillation; R68.0 Hypothermia, not associated with low environmental temperature; E87.5 Hyperkalemia; Z79.891 Long term (current) use of opiate analgesic; Z79.02 Long term (current) use of antithrombotics/antiplatelets; Z79.82 Long term (current) use of aspirin; Z95.5 Presence of coronary angioplasty implant and graft; Z82.49 Family history of ischemic heart disease and other diseases of the circulatory system
CPT/HCPCS: 36415; 36416; 51702; 71045; 76770; 80048; 80053; 81001; 82306; 82310; 82436; 82728; 82962; 83036; 83520; 83540; 83550; 83605; 83735; 83880; 83883; 83970; 84100; 84133; 84155; 84165; 84300; 84484; 84550; 85025; 86036; 86038; 86334; 86803; 86850; 86870; 86900; 86920; 93005; 93306; 94640; 96372; 96374; 96375; 97110; 97116; 97161; 97530; 99285; G0378; J0612; J1610; J1644; J1940; J2405; J2470; J7613; J7799

== ENCOUNTER → 2024-10-29 13:53 | Outpatient (BNVA) | payer MEDICARE, SELFPAY | PROVIDERS: PCP Family Medicine; Visit Provider Podiatrist Foot & Ankle Surgery | DX: E11.42 Type 2 diabetes mellitus with diabetic polyneuropathy (principal); L60.3 Nail dystrophy; I73.9 Peripheral vascular disease, unspecified; R60.0 Localized edema | CPT/HCPCS: 11721; 99213 ==

== ENCOUNTER → 2025-02-03 11:20 | Outpatient (BNVA) | payer MEDICARE, SELFPAY | PROVIDERS: PCP Family Medicine; Visit Provider Podiatrist Foot & Ankle Surgery | DX: E11.42 Type 2 diabetes mellitus with diabetic polyneuropathy (principal); L60.3 Nail dystrophy; E11.8 Type 2 diabetes mellitus with unspecified complications; I73.9 Peripheral vascular disease, unspecified | CPT/HCPCS: 11721 ==

== ENCOUNTER → 2025-05-11 12:47 | Outpatient (BNVA) | payer MEDICARE, SELFPAY | PROVIDERS: PCP Family Medicine; Visit Provider Podiatrist Foot & Ankle Surgery | DX: E11.42 Type 2 diabetes mellitus with diabetic polyneuropathy (principal); L60.3 Nail dystrophy; E11.8 Type 2 diabetes mellitus with unspecified complications; I73.9 Peripheral vascular disease, unspecified | CPT/HCPCS: 11721 ==